=== PATIENT | male | born 1970 | race Caucasian/White ===

== ENCOUNTER 2020-08-01 09:50 | Inpatient (IN) | payer BC, SELFPAY ==
[2020-08-01] VITALS (18 sets, daily range): BP systolic 148–190; BP diastolic 89–108; PULSE 86–116; RESP 16–23; TEMP 36.7–38.4; O2SAT 86–99; BMI 37.8
--- NOTE | ~2020-08-01 | XR_ITS ---
EXAMINATION: XR chest 1V portable DATE: 08/05/2020 05:56 INDICATION: COVID-19 pneumonia. TECHNIQUE: A single frontal view of the chest was obtained. COMPARISON: Chest single view 08/04/2020 FINDINGS: There are patchy airspace opacities throughout the lungs bilaterally. No pleural effusion o r pneumothorax. The heart size is normal. IMPRESSION: 1. Stable diffuse lung disease, consistent with pneumonia or less likely pulmonary edema. Reviewed, dictated and finalized at location A. ING MACHINE OPERATOR IMPRESSION: 1. Stable diffuse lung disease, consistent with pneumonia or less likely pulmon juan edema.
--- NOTE | ~2020-08-01 | XR_ITS ---
XR chest 1V portable DATE: 08/14/2020 06:48 INDICATION: Pneumothorax TECHNIQUE: Portable AP chest on 08/14/2020 at 0543 hours COMPARISON: 08/13/2020 portable AP chest at 1649 hours FINDINGS: ET tube 5.5 cm above nancy. NG tube in stomach. Right internal jugular central venous catheter tip at right brachiocephalic vein. Right thoracostomy tube. No right pneumothorax is evident. There is very prominent elevation the right leaf of the diaphragm, increased since 08/13/2020. Severe diffuse bilateral patchy consolidating infiltrates are noted throughout both lungs, increased in sev erity since 08/13/2020. Left thoracostomy tube is present. No pneumothorax is evident. There is very prominent interval eleva tion of the left leaf of the diaphragm. Severe diffuse bilateral pulmonary patchy consolidating infiltrates are noted. These are increased in severity since 08/13/2020. Minimal if any pleural effusion. IMPRESSION: Severe patchy consolidating infiltrate throughout both lungs, increased since 08/13/2020 Right thoracostomy tube remains; no evidence of pneumothorax Prominent increased elevation of right leaf of diaphragm Reviewed, dictated and finalized at location A. TION MEDICINE SPECIALIST IMPRESSION: Severe patchy consolidating infiltrate throughout both lungs, incre ased since 08/13/2020 Right thoracostomy tube remains; no evidence of pneumothorax Prominent increased elevation of right leaf of diaphragm
--- NOTE | ~2020-08-01 | XR_ITS ---
XR abdomen NG/feed tube insert DATE: 08/06/2020 16:08 INDICATION: Orogastric tube placement TECHNIQUE: Portable AP view on 08/06/2020 at 1604 hours COMPARISON: None FINDINGS: A nasogastric tube is present, the distal tip overlying the body of the stomach. Extensive bilateral patchy pulmonary infiltrates. Gaseous distention of some small and large bowel segments are noted. IMPRESSION: NG tube in body of stomach Reviewed, dictated and finalized at Location A. Reviewed, dictated and finalized at location B. NE SAFETY OFFICER IMPRESSION: NG tube in body of stomach
--- NOTE | ~2020-08-01 | XR_ITS ---
EXAMINATION: XR chest 1V portable DATE: 08/08/2020 06:14 INDICATION: COVID-19 pneumonia. Respiratory failure. TECHNIQUE: A single frontal view of the chest was obtained. COMPARISON: Chest single view 08/07/2020 FINDINGS: There are airspace opacities throughout the lungs bilaterally. No pleural effusion or pneum othorax. The heart size is normal. The endotracheal tube tip is 3.2 cm above the nancy. A right inte rnal jugular central venous catheter is seen with tip in the superior vena cava. The nasogastric tube tip is beyond the inferior margin of the radiograph, but at least to the stomach. IMPRESSION: 1. Stable diffuse lung disease, consistent with pneumonia versus acute respiratory distress syndrome (ARDS). Reviewed, dictated and finalized at location A. COURIER IMPRESSION: 1. Stable diffuse lung disease, consistent with pneumonia versus acute respirat ory distress syndrome (ARDS).
--- NOTE | ~2020-08-01 | XR_ITS ---
XR chest-chest tube insert/pos 08/12/2020 08:08 Indication: Chest tube placement Procedure: AP portable chest Comparison: Comparison to multiple prior studies sequentially, with oldest reviewed study dated 07/21. Findings: Interval placement of right sided chest tube. Decreased right pneumothorax compared with pr ior examination. There is subcutaneous gas in the right chest wall. Persistent diffuse bilateral airs pace disease. Right IJ central line tip in the SVC. Endotracheal tube tip 5.2 cm above the nancy. NG tube in the stomach. Impression: 1: Improved right pneumothorax post chest tube placement. 2: Persistent diffuse bilateral airspace disease which may represent pneumonia or edema. Reviewed, dictated and finalized at location A. PATIONAL THERAPIST'S ASSISTANT Impression: 1: Improved right pneumothorax post chest tube placement. 2: Persistent diffuse bilateral airspace disease which may represent pneumonia or edema.
--- NOTE | ~2020-08-01 | XR_ITS ---
XR chest 1V portable 08/12/2020 06:03 Indication: Respiratory failure Procedure: AP portable chest Comparison: Comparison to multiple prior studies sequentially, with oldest reviewed study dated 07/21. Findings: Right IJ central line tip in the SVC. Interval development of small right apical pneumothor ax. Endotracheal tube tip 4.2 cm above the nancy. NG tube in the stomach. Persistent diffuse bilater al airspace disease without significant change. No significant effusion. Impression: 1: New small right apical pneumothorax. 2: Stable diffuse bilateral airspace disease which may represent pneumonia, edema or ARDS. Dr. Ruiz discussed with the patient's nurse, Piotr Patton, at 08/12/2020 06:37 LEARNING PROGRAM MANAGER. Reviewed, dictated and finalized at location A. NING PROGRAM MANAGER Impression: 1: New small right apical pneumothorax. 2: Stable diffuse bilateral airspace disease which may represent pneumonia, ulysses ma or ARDS. Dr. Ruiz discussed with the patient's nurse, Piotr Patton, at 08/12/2020 06:3 7 LEARNING PROGRAM MANAGER.
--- NOTE | ~2020-08-01 | XR_ITS ---
EXAMINATION: XR chest 1V portable DATE: 08/07/2020 06:08 INDICATION: Respiratory failure. COVID-19 pneumonia. TECHNIQUE: A single frontal view of the chest was obtained. COMPARISON: Chest single view 08/06/2020 FINDINGS: There are patchy airspace opacities throughout the lungs bilaterally. No pleural effusion o r pneumothorax. The heart size is normal. The endotracheal tube tip is 3.5 cm above the nancy. The n asogastric tube tip is beyond the inferior margin of the radiograph, but at least to the stomach. A r ight internal jugular central venous catheter is seen with tip in the superior vena cava. IMPRESSION: 1. Stable diffuse lung disease, consistent with pneumonia versus acute respiratory distress syndrome (ARDS). Reviewed, dictated and finalized at location A. BOSS IMPRESSION: 1. Stable diffuse lung disease, consistent with pneumonia versus acute respirat ory distress syndrome (ARDS).
--- NOTE | ~2020-08-01 | XR_ITS ---
EXAMINATION: XR abdomen/kub 1V DATE: 08/14/2020 10:37 INDICATION: Abnormal chest radiograph. TECHNIQUE: A supine view of the abdomen on 2 radiographs was obtained. COMPARISON: Chest radiograph at 9:59 AM, 5:39 AM FINDINGS: There are no dilated loops of bowel. There is a paucity of bowel gas. The nasogastric tube tip is in the stomach. A right basilar pneumothorax is noted. A right-sided chest tube is unchanged. IMPRESSION: 1. Right basilar pneumothorax, worsened from 5:39 AM. Unchanged right-sided chest tube. Reviewed, dictated and finalized at location A. DULE PLANNING MANAGER IMPRESSION: 1. Right basilar pneumothorax, worsened from 5:39 AM. Unchanged right-sided omid st tube.
--- NOTE | ~2020-08-01 | XR_ITS ---
EXAMINATION: XR chest 1V portable INDICATION: COVID pneumonia, shortness of breath TECHNIQUE: Portable AP chest at 0729 hours COMPARISON: 08/01/2020 FINDINGS: There is stable cardiomegaly. Diffuse interstitial and airspace opacities persist with slig ht improvement in the right lung. There is no pleural effusion or pneumothorax. The visualized osseou s structures are unremarkable. IMPRESSION: 1. Diffuse lung disease with slight interval improvement on the right, consistent with pneumonia and/ or pulmonary edema and/or acute respiratory distress syndrome (ARDS). 2. Cardiomegaly. Reviewed, dictated and finalized at location A. MENT ERECTOR IMPRESSION: 1. Diffuse lung disease with slight interval improvement on the right, consiste nt with pneumonia and/or pulmonary edema and/or acute respiratory distress synd danni (ARDS). 2. Cardiomegaly.
--- NOTE | ~2020-08-01 | XR_ITS ---
EXAMINATION: XR chest-chest tube insert/pos DATE: 08/14/2020 11:53 INDICATION: Right pneumothorax status post chest tube placement. TECHNIQUE: A single frontal view of the chest was obtained on 2 radiographs. COMPARISON: Chest single view at 9:38 AM FINDINGS: There is a small right pneumothorax with interval improvement. There are now 2 right-sided chest tubes. There are airspace and interstitial opacities throughout the lungs bilaterally. No pleur al effusion. The heart size is normal. The endotracheal tube tip is 4.3 cm above the nancy. A right internal jugular central venous catheter is seen with tip in the superior vena cava. The nasogastric tube tip is in the stomach. IMPRESSION: 1. Small right pneumothorax with improvement after second chest tube placement. 2. Severe diffuse lung disease, consistent with pneumonia versus acute respiratory distress syndrome (ARDS). Reviewed, dictated and finalized at location A. E CLERK IMPRESSION: 1. Small right pneumothorax with improvement after second chest tube placement. 2. Severe diffuse lung disease, consistent with pneumonia versus acute respirat ory distress syndrome (ARDS).
--- NOTE | ~2020-08-01 | XR_ITS ---
EXAMINATION: XR chest 1V portable EXAM DATE: 08/01/2020 10:20 INDICATION: SOB with Covid + confirmed . TECHNIQUE: Portable AP frontal chest x-ray was obtained. Comparison is made to prior examination from 09/19/2013. FINDINGS: Moderate amount of ill-defined patchy peripheral predominant acute airspace disease, appear ance and distribution consistent with acute lung injury from SARS-CoV-2. Other etiologies not excluda ble. Mild cardiomegaly. No pneumothorax or pleural effusion. There are no osseous abnormalities identified . IMPRESSION: Moderate amount of patchy acute ill-defined airspace disease. Clinical correlation. Reviewed, dictated and finalized at location B. IMPRESSION: Moderate amount of patchy acute ill-defined airspace disease. Clin ical correlation.
--- NOTE | ~2020-08-01 | XR_ITS ---
EXAMINATION: XR chest ET placement DATE: 08/13/2020 16:53 INDICATION: Change in respiratory status. Endotracheal tube placement. TECHNIQUE: frontal view of the chest was obtained. COMPARISON: Chest radiograph dated 08/13/2020 FINDINGS: Endotracheal tube tip 4.6 cm above the nancy. Nasogastric tube extends below the left hemidiaphragm with distal tip collimated off the study. Right internal jugular central venous catheter with distal tip in the cephalad superior vena cava. No significant change in a right-sided chest tube. The proxi mal side port is now slightly extrapleural projecting over the intercostal space. Diffuse bilateral airspace opacities with dense consolidation in the right mid to lower lung zone. Bl unting at the right costophrenic angle suggesting a small right pleural effusion. No pneumothorax. He art size is normal. IMPRESSION: 1. Endotracheal tube tip 4.6 similar above the nancy.. 2. Right chest tube has backed out slightly with proximal side-port now likely extrapleural at the le magdalena of the intercostal space. 3. Diffuse bilateral lung disease most prominent in the right mid to lower lung zone which could repr esent pneumonia, pulmonary edema or combination thereof. 4. Small right pleural effusion. Reviewed, dictated and finalized at location H. CAL INFORMATION SPECIALIST IMPRESSION: 1. Endotracheal tube tip 4.6 similar above the nancy.. 2. Right chest tube has backed out slightly with proximal side-port now likely extrapleural at the level of the intercostal space. 3. Diffuse bilateral lung disease most prominent in the right mid to lower lung zone which could represent pneumonia, pulmonary edema or combination thereof. 4. Small right pleural effusion.
--- NOTE | ~2020-08-01 | XR_ITS ---
EXAMINATION: XR abdomen NG/feed tube insert DATE: 08/09/2020 20:50 INDICATION: Nasogastric tube placement TECHNIQUE: A supine view of the abdomen and lower chest was obtained for evaluation of feeding tube placement. COMPARISON: 08/06/2020 FINDINGS: Nasogastric tube tip in the body of the stomach. Small amount of gas at the splenic flexure of the co jing. No dilated loops of gas-filled bowel in the visualized upper abdomen. The lower abdomen and pelv is is excluded from the [id number]. Extensive bilateral coarse airspace opacities. Distal tip of a central venous catheter is seen at the cephalad superior vena cava. Heart size is normal. IMPRESSION: 1. Nasogastric tube in stomach. 2. Diffuse bilateral lung disease consistent with pneumonia versus ARDS. Reviewed, dictated and finalized at [facility]. CIATE PRODUCER
--- NOTE | ~2020-08-01 | XR_ITS ---
EXAMINATION: XR chest ET placement EXAM DATE: 08/06/2020 16:07 INDICATION: intubation . COVID positive. TECHNIQUE: Portable AP frontal chest x-ray was obtained. Comparison is made to prior examination from 08/05/2020. FINDINGS: Endotracheal tube tip is 1 centimeters above the nancy (ideal range is between 2 to 5 cm), could be safely retracted 1-2 cm. There is a nasogastric tube seen with tip collimated off the stud y, but below the left hemidiaphragm. Diffuse bilateral ill-defined acute airspace disease, consistent with edema or infection. Probably CO VID-19 pneumonia given history provided. There are no sizable pleural effusions. There is no pneum othorax suspected. Mild cardiomegaly. The bones and soft tissues are unremarkable. There is no significant interval change compared to prior exam. IMPRESSION: 1. ET tube tip above nancy, could be safely retracted 1-2 cm 2. Extensive acute airspace disease. Reviewed, dictated and finalized at location A. ERCIAL TECHNICIAN
--- NOTE | ~2020-08-01 | XR_ITS ---
EXAMINATION: XR chest 1V portable EXAM DATE: 08/11/2020 06:15 INDICATION: Respiratory failure. COVID 19. TECHNIQUE: Portable AP frontal chest x-ray was obtained. Comparison is made to prior examination from 08/10, 08/09, 08/08. FINDINGS: Endotracheal tube tip is 4 centimeters above the nancy (ideal range is between 2 to 5 cm). There is a nasogastric tube seen with tip collimated off the study, but below the left hemidiaphrag m. There is a right IJ venous line. Extensive bilateral ill-defined acute airspace disease with regions of confluence. Appearance is cons istent with COVID-19 pneumonia. There are no sizable pleural effusions. There is no pneumothorax s uspected. The cardiomediastinal silhouette is prominent but magnified on this AP technique. The b ones and soft tissues are unremarkable. There is no significant interval change compared to prior exam. IMPRESSION: 1. Line(s) and tube(s) in position. 2. Stable airspace disease and other findings as above. Reviewed, dictated and finalized at location B. S RECREATION DIRECTOR
--- NOTE | ~2020-08-01 | XR_ITS ---
EXAMINATION: XR chest 1V portable EXAM DATE: 08/09/2020 05:57 INDICATION: Respiratory failure. COVID 19. TECHNIQUE: Portable AP frontal chest x-ray was obtained. Comparison is made to prior examination from 08/08. FINDINGS: Endotracheal tube tip is 4 centimeters above the nancy (ideal range is between 2 to 5 cm). There is a nasogastric tube seen with tip collimated off the study, but below the left hemidiaphrag m. There is a right IJ venous line. Extensive bilateral ill-defined acute airspace disease with small regions of confluence. Appearance i s consistent with COVID-19 pneumonia. There are no sizable pleural effusions. There is no pneumoth orax suspected. The cardiomediastinal silhouette is prominent but magnified on this AP technique. The bones and soft tissues are unremarkable. There is no significant interval change compared to prior exam. IMPRESSION: 1. Line(s) and tube(s) in position. 2. Stable airspace disease and other findings as above. Reviewed, dictated and finalized at location A. ING SIGNAL OFFICER
--- NOTE | ~2020-08-01 | XR_ITS ---
EXAMINATION: XR chest 1V portable INDICATION: Shortness of breath, COVID TECHNIQUE: Portable AP chest at 0741 hours COMPARISON: 08/02/2020 FINDINGS: Diffuse interstitial and airspace opacities persist with interval worsening, particularly o n the right. There is stable cardiomegaly. No pleural effusion or pneumothorax is identified. IMPRESSION: 1. Diffuse lung disease with interval worsening, consistent with pneumonia and/or pulmonary edema and /or acute respiratory distress syndrome (ARDS). Reviewed, dictated and finalized at location A. ESTHETICIAN IMPRESSION: 1. Diffuse lung disease with interval worsening, consistent with pneumonia and/ or pulmonary edema and/or acute respiratory distress syndrome (ARDS).
--- NOTE | ~2020-08-01 | XR_ITS ---
EXAMINATION: XR chest 1V portable DATE: 08/04/2020 07:38 INDICATION: COVID-19 pneumonia. TECHNIQUE: A single frontal view of the chest was obtained. COMPARISON: Chest single view 08/03/2020 FINDINGS: There are airspace and interstitial opacities in all lung zones bilaterally. No pleural eff usion or pneumothorax. The heart size is normal. IMPRESSION: 1. Stable diffuse lung disease, consistent with pneumonia or less likely pulmonary edema. Reviewed, dictated and finalized at location A. RVISOR FINISHING IMPRESSION: 1. Stable diffuse lung disease, consistent with pneumonia or less likely pulmon juan edema.
--- NOTE | ~2020-08-01 | XR_ITS ---
XR chest 1V portable 08/13/2020 00:42 Indication: Pneumothorax. Decreased oxygen saturations. Procedure: AP portable chest Comparison: Comparison to multiple prior studies sequentially, with oldest reviewed study dated 07/21. Findings: Right IJ central line tip in the SVC. Endotracheal tube tip 3.4 cm above the nancy. NG tub e in the stomach. No pneumothorax identified. Right sided chest tube position unchanged. Diffuse bila teral airspace disease unchanged, consistent with pneumonia. Possible small effusions. Impression: 1: Diffuse bilateral airspace disease unchanged, consistent with pneumonia versus edema. Reviewed, dictated and finalized at location A. TED CIRCUIT BOARDS PINNER Impression: 1: Diffuse bilateral airspace disease unchanged, consistent with pneumonia vers us edema.
--- NOTE | ~2020-08-01 | XR_ITS ---
EXAMINATION: XR chest port-a-cath/central DATE: 08/06/2020 19:49 INDICATION: Central line insertion TECHNIQUE: frontal view of the chest was obtained. COMPARISON: Chest radiograph dated 08/06/2020 at 4:03 PM FINDINGS: Endotracheal tube tip 3.0 cm above the nancy. Nasogastric tube extends below the left hemidiaphragm with distal tip collimated off the study. Right internal jugular central venous port catheter with d istal tip in the midsuperior vena cava. Diffuse bilateral patchy airspace opacities. No pleural effusion or pneumothorax. Mild cardiomegaly. IMPRESSION: 1. Lines and tubes in expected position. 2. Extensive bilateral lung disease consistent with pneumonia. Reviewed, dictated and finalized at location H. MILL MANAGER
--- NOTE | ~2020-08-01 | XR_ITS ---
EXAMINATION: XR chest ET placement EXAM DATE: 08/10/2020 02:20 INDICATION: Endotracheal tube replaced. Respiratory failure. COVID 19. TECHNIQUE: Portable AP frontal chest x-ray was obtained. Comparison is made to prior examination from 08/09, 08/08. FINDINGS: Endotracheal tube tip is 4 centimeters above the nancy (ideal range is between 2 to 5 cm). There is a nasogastric tube seen with tip collimated off the study, but below the left hemidiaphrag m. There is a right IJ venous line. Extensive bilateral ill-defined acute airspace disease with regions of confluence. Appearance is cons istent with COVID-19 pneumonia. There are no sizable pleural effusions. There is no pneumothorax s uspected. The cardiomediastinal silhouette is prominent but magnified on this AP technique. The b ones and soft tissues are unremarkable. There is no significant interval change compared to prior exam. IMPRESSION: 1. Line(s) and tube(s) in position. 2. Stable airspace disease and other findings as above. Reviewed, dictated and finalized at location A. N RESOURCES CONSULTANT
--- NOTE | ~2020-08-01 | XR_ITS ---
EXAMINATION: XR chest 1V portable DATE: 08/14/2020 10:35 INDICATION: Chest tube placement. TECHNIQUE: A single frontal view of the chest was obtained on 2 radiographs. COMPARISON: Chest single view at 5:39 AM FINDINGS: There is a worsened pneumothorax at right lung base. There are airspace and interstitial op acities throughout the lungs bilaterally. No pleural effusion. The heart size is normal. A right-side d chest tube is noted. The endotracheal tube tip is 5.0 cm above the nancy. The nasogastric tube tip is in the stomach. A right internal jugular central venous catheter is seen with tip in the superior vena cava. IMPRESSION: 1. Worsened pneumothorax at right lung base. Unchanged right-sided chest tube. 2. Stable severe diffuse lung disease, consistent with pneumonia versus acute respiratory distress sy ndrome (ARDS). Reviewed, dictated and finalized at location A. RWEAR WELTER IMPRESSION: 1. Worsened pneumothorax at right lung base. Unchanged right-sided chest tube. 2. Stable severe diffuse lung disease, consistent with pneumonia versus acute r espiratory distress syndrome (ARDS).
--- NOTE | 2020-08-01 09:59 | ED.SOB ---
HPI - SOB/Dyspnea General Chief Complaint: Shortness of Breath/Dyspnea Stated Complaint: covid +, SOB Time Seen by Provider: 08/01/20 09:59 Source: patient Mode of arrival: ambulatory Limitations: no limitations History of Present Illness HPI Narrative: Patient is a 50-year-old male with a history of hypertension, hyperlipidemia who presents for evaluation of fever, cough and shortness of breath. Patient with a positive Covid test result 2 days ago, has had fever, myalgias, loss of sense of taste and smell, as well as shortness of breath that developed today. When asked about timeline of symptoms, states it could have been over 2 weeks since his symptoms really began. He had a Covid test about a week ago that was initially negative. Patient denying any chest pain. No rashes. He denies nausea or vomiting. He reports some mild diarrhea. Related Data Home Medications Medication Instructions Recorded Confirmed lamotrigine 08/01/20 venlafaxine mg PO 08/01/20 Allergies Allergy/AdvReac Type Severity Reaction Status Date / Time No Known Allergies Allergy Verified 08/01/20 10:00 Review of Systems Review of Systems: Narrative: CONSTITUTIONAL: Reports fever and chills EYES: Denies visual changes, redness, or discharge. ENT: Reports rhinorrhea and congestion CARDIOVASCULAR: Denies chest pain, palpitations, or edema. RESPIRATORY: Reports cough and shortness of breath GASTROINTESTINAL: Denies abdominal pain, nausea, vomiting, reports mild diarrhea GENITOURINARY: Denies dysuria or hematuria. SKIN: Denies rash or itching. MUSCULOSKELETAL: Denies back pain, joint pain, or myalgia. NEUROLOGIC: Denies headache, numbness, reports feeling diffusely weak PSYCHIATRIC: History of bipolar disorder and depression [facility] Past Medical History Medical History (Updated 08/01/20 @ 12:15 by Georgia Connell MD) Bipolar disorder Depression Hypertension Family History Family History (Updated 02/01/14 @ 11:21 by DOCTOR UNKNOWN) Other Family history of alcoholism Family history of mental disorder Social History Social History Smoking status: Never smoker Gender identity (if verbalized by the patient): Male Exam Narrative: Exam Narrative: GENERAL: Awake, alert, conversant HEAD: Normocephalic, atraumatic. EYES: PERRLA and EOMI. ENT: Nares clear, no rhinorrhea or epistaxis. Mucous membranes moist. NECK: Supple. CHEST: No respiratory distress, breathing even and non labored, no wheezing HEART: Tachycardic rate, sinus rhythm ABDOMEN:Non distended, non tender EXTREMITIES: Normal range of motion. No edema. SKIN: Warm, dry, no rash. NEURO:No focal deficits. Alert and oriented x3 Course Vital Signs Vital signs: Vital Signs Temperature 38.4 C H 08/01/20 09:54 Pulse Rate 115 H 08/01/20 09:54 Respiratory Rate 19 08/01/20 09:54 Blood Pressure 190/107 H 08/01/20 09:54 Pulse Oximetry 86 L 08/01/20 09:54 Temperature 38.4 C H 08/01/20 09:54 Pulse Rate 113 H 08/01/20 11:01 Respiratory Rate 20 08/01/20 11:01 Blood Pressure 185/102 H 08/01/20 11:01 Pulse Oximetry 96 08/01/20 11:01 MDM - SOB/Dyspnea MDM Narrative Medical decision making narrative: Patient presented for evaluation of fever, cough, shortness of breath. Denying any chest pain. Has had positive Covid test already. Patient presenting hypoxic on room air. No severe increased work of breathing. He is tachycardic and febrile. Patient does meet sepsis criteria. He was placed on 4 L nasal cannula with improvement in oxygen saturations to 95%. Patient was given a 1 L fluid boluses we are trying to be judicious with IV fluids and Covid positive patients. Patient had no hypotension. He has a mild lactic acidosis consistent with viral sepsis. At this point, his source of infection is Covid, antibiotics at this point are not indicated per guidelines. The patient was started on IV chelsi
--- NOTE | 2020-08-01 10:01 | ECG_ITS ---
Measurements Intervals [place] Rate: 109 P: 5 OR: 138 QRS: -38 QRSD: 99 T: 54 QT: 332 QTc: 449 Interpretive Statements SINUS TACHYCARDIA FREQUENT VENTRICULAR PREMATURE COMPLEXES LEFT AXIS DEVIATION DELAYED PRECORDIAL R/S TRANSITION BORDERLINE ST-T WAVE ABNORMALITY- INF/HIGH LAT LEADS ABNORMAL ECG Electronically Signed On 08-01-2020 10:08:42 CUSTOMER ACCOUNT TECHNICIAN by Jeffery Espinosa D.O.
[2020-08-01 10:12] LABS: Basophils Percent Auto 0.3 % (0.2-1.2); Hematocrit 45.9 % (42.0-52.0); Hemoglobin 15.2 g/dL (14.0-18.0); Immature Granulocyte Absolute 0.05 K/mm3 (0.00-0.031); Immature Granulocyte Percent A 0.7 % (0-0.5); Lymphocytes Absolute Auto 0.85 K/mm3 (0.9-3.2); Lymphocytes Percent Auto 12.7 % (18.3-44.2); Mean Corpuscular HGB Conc 33.1 g/dl (32-36); Mean Corpuscular Hemoglobin 29.8 pg (26-34); Mean Platelet Volume 9.6 fl (7.4-10.4); Monocytes Absolute Auto 0.2 K/mm3 (0.1-0.6); Monocytes Percent Auto 3.6 % (2.6-8.5); Neutrophils Absolute Auto 5.5 K/mm3 (1.3-6.7); Neutrophils Percent Auto 82.7 % (45.5-73.1); Platelet Count Result 268 k/mm3 (150-375); Red Cell Distribution Width 12.3 % (11.5-14.5); White Blood Count 6.7 K/mm3 (4.5-10.0)
[2020-08-01 10:25] LABS: Anion Gap 9 mmol/L (8-16); Blood Urea Nitrogen 14 mg/dL (9-20); Calcium 8.9 mg/dL (8.4-10.2); Carbon Dioxide 31 mmol/L (22-30); Chloride 95 mmol/L (98-107); Estimated Glomerular Filt Rate > 60; Glucose 296 mg/dL (75-110); Potassium 3.7 mmol/L (3.4-5.0); Sodium 135 mmol/L (137-145)
[2020-08-01 10:55] LABS: Lactic Acid Reflex 3.2 mmol/L (0.7-2.1)
[2020-08-01] MEDS: SODIUM CHLORIDE 0.9% IV 1,000 ML 999 ML IV CONT (10:55)
[2020-08-01] MEDS: ACETAMINOPHEN 500 MG TABLET 1000 MG PO (10:56)
[2020-08-01] MEDS: ONDANSETRON INJ 4 MG/2 ML VIAL IV PUSH (10:56)
[2020-08-01 11:00] LABS: Alanine Aminotransferase 56 U/L (4-50); Albumin Level 3.8 g/dL (3.5-5.1); Alkaline Phosphatase 119 U/L (38-126); Anion Gap 9 mmol/L (8-16); Aspartate Amino Transferase 60 U/L (17-59); Bilirubin,Total 0.6 mg/dL (0.2-1.3); Blood Urea Nitrogen 15 mg/dL (9-20); Calcium 8.7 mg/dL (8.4-10.2); Carbon Dioxide 32 mmol/L (22-30); Chloride 94 mmol/L (98-107); Estimated Glomerular Filt Rate > 60; Glucose 278 mg/dL (75-110); Potassium 3.7 mmol/L (3.4-5.0); Sodium 135 mmol/L (137-145)
[2020-08-01 11:12] LABS: CRP 13.1 mg/dL (<1.0)
[2020-08-01 11:16] LABS: Add Urine Microscopic? YES; Appearance Urine Clear (Clear); Bacteria Urine Trace /hpf; Bilirubin Urine Negative (Negative); Blood Urine Negative (Negative); Color Urine Yellow (Yellow); Glucose Urine UA 3+ mg/dL (Negative); Ketones Urine 1+ mg/dL (Negative); Leukocyte Esterase Ur Negative LEU/UL (Negative); Mucus Urine Rare /lpf; Nitrate Urine Negative (Negative); Protein Urine 2+ mg/dL (Negative); RBC Urine 0-2 /hpf (0-2); Specific Grav Ur 1.036 (1.001-1.035); Urobilinogen Urine Negative mg/dL (<2.0)
--- NOTE | 2020-08-01 12:47 | PC.NURSE ---
Report attempted x 2 by this RN. Floor RN unable to take report. ED charge nurse notified of delay in admission
[2020-08-01 12:56] LABS: Alanine Aminotransferase 57 U/L (4-50); Estimated Glomerular Filt Rate > 60
--- NOTE | 2020-08-01 13:10 | ADMGEN ---
This patient, Migel Estrada, was admitted to [facility] Surg Room 328-01. Patient/family oriented to hospital policies and general routines including ID bracelet, bed and alarms, visiting hours, pain management, procedures, bathroom and other care routines, personal items, smoking policy, room service/diet, and visiting hours. Information on how to activate the Rapid Response Team has been discussed. Patient/Family are encouraged to report perceived risks to care and to ask questions if they do not understand what they are told or what they should do.
[2020-08-01 13:41] LABS: Reflex Lactic Acid Yes or No Add Lactic
--- NOTE | 2020-08-01 14:02 | PM.IMHP ---
H&P: HPI History of Present Illness Date/Time: 08/01/20 14:02 Chief complaint: COVID 19, Hypoxia, Sepsis Narrative: Migel Estrada is a 50 year old male with bipolar disorder and pre diabetes who is here for fever, SOB and cough. Patient states his symptoms started on 08 08 with fever, cough and shortness of breath. He also had headache, loss of taste and smell and fatigue. He went to an urgent care center on that day and had a rapid COVID test which was positive. he was sent home with a nebulizer treatment with albuterol which she has been using about 6 times a day. He has also been taking Tylenol with headache. He has noted decreased appetite and headache. No nausea or vomiting but has been having loose stools. His in center COVID positive. He denies any chest pain but does have some tightness when he tries to take deep breaths. Patient symptoms have worsened over the past few days prompting this presentation to the emergency room. In the emergency room patient was tachycardic, hypoxic and febrile. He had elevated blood pressure. He states he did not know that he and hypertension. He is not sure they as hyperlipidemia either. Initially told the ER provider that he did not have diabetes but glucose here was 278 and admits to me that he was diagnosed with prediabetes and was on metformin. He has been off metformin for year since losing contact with that primary care doctor. chest x-ray reviewed showing moderate amount of patchy acute airspace disease. Lactic acid was 3.2 and CRP was 13. LFTs are mildly elevated. He was started on room does severe dexamethasone. Was admitted for further care. Review of Systems Review of Systems: All systems reviewed & are unremarkable except as noted in HPI and below PMFSH Past Medical History Medical History (Updated 08/01/20 @ 16:05 by Deon Rodriguez MD) Bipolar disorder Depression Hypertension patient denies Pre-diabetes Surgical History Surgical History (Updated 08/01/20 @ 16:05 by Deon Rodriguez MD) History of appendectomy Family History Family History (Updated 02/01/14 @ 11:21 by DOCTOR UNKNOWN) Other Family history of alcoholism Family history of mental disorder Social History Social History (Updated 08/01/20 @ 16:06 by Deon Rodriguez MD) Social History: He lives at home with his and 3 children. He denies tobacco alcohol drug use. He works in [employer]. He is a full code. Nominates his to be the individual would make medical decisions for if he is not able. Smoking status: Never smoker Second hand tobacco smoke exposure: No Alcohol intake: never Substance use: never Substance use type: does not use Gender identity (if verbalized by the patient): Male Sexual Orientation (if Verbalized by the Patient): Straight or Heterosexual Spiritual care concerns: No Meds Home Medications and Allergies Home Medications Medication Instructions Recorded Confirmed Type lamotrigine 200 mg PO HS 08/01/20 08/01/20 History venlafaxine 150 mg PO DAILY 08/01/20 08/02/20 History Allergies Allergy/AdvReac Type Severity Reaction Status Date / Time No Known Allergies Allergy Verified 08/01/20 14:48 Vital Signs Vital Signs - 24 hr 08/01/20 09:54 08/01/20 09:56 08/01/20 10:00 Temperature 101.1 F H Pulse Rate 115 H 106 H Respiratory Rate 19 23 H Blood Pressure 190/107 H 190/107 H Pulse Oximetry 86 L 86 L 93 08/01/20 10:01 08/01/20 10:02 08/01/20 10:04 Temperature Pulse Rate 112 H 106 H Respiratory Rate 16 Blood Pressure 175/101 H Pulse Oximetry 93 94 08/01/20 10:17 08/01/20 10:46 08/01/20 11:00 Temperature Pulse Rate 114 H 114 H 112 H Respiratory Rate 21 H 22 H 21 H Blood Pressure 154/97 H 176/108 H Pulse Oximetry 98 95 08/01/20 11:01 08/01/20 11:16 08/01/20 11:31 Temperature Pulse Rate 113 H 114 H 116 H Respiratory Rate 20 22 H 23 H Blood Pressure 185/102 H 184/100 H 17
[2020-08-01 14:36] LABS: Lactic Acid 0.8 mmol/L (0.7-2.1)
--- NOTE | 2020-08-01 14:54 | PC.NURSE ---
Patient says he had taken Metformin in the past but doesnt remember when he took it last. He also said he had taken medication for his BP. 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
[2020-08-01] MEDS: REMDESIVIR 200 MG/NS 250 ML 200 MG/250 ML BAG 250 MG IVPB (16:30)
[2020-08-01] MEDS: INSULIN ASPART (*BKC) 100 UNITS/ML SUB-Q (16:42)
[2020-08-01 17:10] LABS: Glucose Point of Care 286 (65-105)
[2020-08-01] MEDS: ENOXAPARIN 40 MG/0.4 ML SYRINGE SUB-Q (20:39)
[2020-08-01] MEDS: lamoTRIgine 100 MG TABLET 200 MG PO (20:39)
[2020-08-01 20:54] LABS: Glucose Point of Care 266 (65-105)
[2020-08-01] MEDS: ALBUTEROL SULFATE (*SP) INHALER 2 PUFF INHALATION (21:55)
[2020-08-02] VITALS (10 sets, daily range): BP systolic 129–144; BP diastolic 66–93; PULSE 64–94; RESP 18–20; TEMP 36.1–37.6; O2SAT 92–94
[2020-08-02] MEDS: ACETAMINOPHEN 325 MG TABLET 650 MG PO (00:37)
[2020-08-02 06:24] LABS: Basophils Percent Auto 0.3 % (0.2-1.2); Hematocrit 44.5 % (42.0-52.0); Hemoglobin 14.6 g/dL (14.0-18.0); Immature Granulocyte Absolute 0.09 K/mm3 (0.00-0.031); Immature Granulocyte Percent A 1.1 % (0-0.5); Lymphocytes Absolute Auto 0.87 K/mm3 (0.9-3.2); Lymphocytes Percent Auto 11.1 % (18.3-44.2); Mean Corpuscular HGB Conc 32.8 g/dl (32-36); Mean Corpuscular Volume 88.3 fl (80-100); Mean Platelet Volume 9.7 fl (7.4-10.4); Monocytes Absolute Auto 0.4 K/mm3 (0.1-0.6); Monocytes Percent Auto 5.6 % (2.6-8.5); Neutrophils Absolute Auto 6.4 K/mm3 (1.3-6.7); Neutrophils Percent Auto 81.9 % (45.5-73.1); Platelet Count Result 297 k/mm3 (150-375); Red Blood Count 5.04 M/mm3 (4.6-6.20); Red Cell Distribution Width 12.4 % (11.5-14.5); White Blood Count 7.9 K/mm3 (4.5-10.0)
[2020-08-02 06:47] LABS: Lactic Acid Reflex 1.4 mmol/L (0.7-2.1)
[2020-08-02 06:51] LABS: Hemoglobin A1C 8.5 % (<5.7)
[2020-08-02 07:00] LABS: Alanine Aminotransferase 55 U/L (4-50); Albumin Level 3.6 g/dL (3.5-5.1); Alkaline Phosphatase 119 U/L (38-126); Anion Gap 8 mmol/L (8-16); Aspartate Amino Transferase 55 U/L (17-59); Bilirubin,Total 0.5 mg/dL (0.2-1.3); Blood Urea Nitrogen 15 mg/dL (9-20); Calcium 8.7 mg/dL (8.4-10.2); Carbon Dioxide 32 mmol/L (22-30); Chloride 96 mmol/L (98-107); Estimated CRCL calculation 151 ml/min; Estimated Glomerular Filt Rate > 60; Glucose 221 mg/dL (75-110); Lactate Dehydrogenase 690 U/L (313-618); Potassium 3.9 mmol/L (3.4-5.0); Sodium 136 mmol/L (137-145)
[2020-08-02 07:56] LABS: Thyroid Stimulating Hormone Reflex 0.458 uIU/mL (0.465-4.68)
[2020-08-02 08:03] LABS: CRP 11.8 mg/dL (<1.0)
[2020-08-02] MEDS: INSULIN ASPART (*BKC) 100 UNITS/ML SUB-Q ×3 (08:31→18:32)
[2020-08-02] MEDS: DEXAMETHASONE 2 MG TABLET 6 MG PO (08:36)
[2020-08-02 08:37] LABS: Glucose Point of Care 207 (65-105)
[2020-08-02] MEDS: VENLAFAXINE HCL XR 75 MG CAP.ER.24H 150 MG PO (08:38)
[2020-08-02] MEDS: lisinopriL 10 MG TABLET PO (08:38)
[2020-08-02] MEDS: ENOXAPARIN 40 MG/0.4 ML SYRINGE SUB-Q ×2 (09:00→23:04)
[2020-08-02] MEDS: ALBUTEROL SULFATE (*SP) INHALER 2 PUFF INHALATION ×3 (09:08→22:05)
[2020-08-02 12:16] LABS: Glucose Point of Care 313 (65-105)
[2020-08-02 12:32] LABS: Free T4 Free Thyroxine Reflex 1.38 ng/dL (0.78-2.19)
[2020-08-02 14:00] LABS: Total Triiodothyronine (T3) 0.88 NG/ML (0.97-1.69)
[2020-08-02] MEDS: REMDESIVIR 100 MG/NS 250 ML 100 MG/250 ML BAG 250 MG IVPB (14:49)
--- NOTE | 2020-08-02 14:59 | PM.IMPN ---
Progress Note: A&P Assessment and Plan (1) Acute respiratory failure with hypoxia: Code(s): J96.01 - Acute respiratory failure with hypoxia Status: Acute Assessment and Plan: Patient with known COVID diagnosed 07/29. Patient presents with complaints of shortness of breath. Found to be hypoxic requiring supplemental oxygen. Chest x-ray reviewed showing moderate amount of patchy acute airspace disease. Most likely related to COVID. Stabilized on 2L nasal cannula at this time. Wean oxygen as tolerated. Check BNP (2) Sepsis: Code(s): A41.9 - Sepsis, unspecified organism Status: Acute Assessment and Plan: Patient with sepsis symptoms present on admission with lactic acidosis, hypoxia, fever, and tachycardia. White count normal but with left shift. Lactic acid level normal. [place] all related to COVID. Continue to monitor closely. (3) COVID-19: Code(s): U07.1 - COVID-19 Status: Acute Assessment and Plan: Patient presents with fever, cough and shortness of breath. His COVID test was positive on 07/29/2020. He is hypoxic on presentation. He has been started on dexamethasone and Remdesivir Day 2. CXR today showing slight improvement. Ferritin, LDH and CRP all are elevated. Continue albuterol MDI. Continue supportive care. Follow inflammatory markers. (4) Hyperglycemia: Code(s): R73.9 - Hyperglycemia, unspecified Status: Acute Assessment and Plan: Patient's glucose is elevated on admission to 278. Patient has hx of pre-diabetes. A1c 8.5 so now with DM. The patient's blood glucose was reviewed on 08/02 Glucose remains poorly controlled related to the steroids and that he was porly controlled prir to admission. Continue AccuCheks covering with sliding scale. Hypoglycemia protocol available as needed. Add lantus at night. Add metformin as well. (5) Hypertension: Code(s): I10 - Essential (primary) hypertension Status: Inactive Assessment and Plan: Patient has hypertension listed as a medical problem although he denies. He is not on any medications for this. Blood pressure elevated on admission which again could be stress response but suspect he has underlying HTN. We added lisinopril and BP better controlled today. Continue to monitor. (6) Bipolar disorder: Code(s): F31.9 - Bipolar disorder, unspecified Status: Inactive Assessment and Plan: Mood is stable. Continue Lamictal and venlafaxine. (7) DVT prophylaxis: Code(s): Z29.9 - Encounter for prophylactic measures, unspecified Status: Acute Assessment and Plan: Lovenox q.12 Subjective Date/time seen: 08/02/20 14:59 Interval history: Date of service 08/02 50yo male with bipolar, pre-DM and recently diagnosed with COVID here for SOB and found to be hypoxic. No fevers overnight. No CP or palpitations. SOB better. +GARCIA. No n/v. no diarrhea. Decrease in appetite. Exam Narrative: Exam Narrative: AF 97.9 132/66 91 20 92% 2L Gen - NARD sitting up in bed Chest - decreased BS bibasilar with inspiratory crackles mid to lower lung ovalles. CV - RRR S1/S2 Abd - soft, NT/ND, +BS Ext - no pedal edema. Psych - normal mood and affect. Patient is pleasant and cooperative. Skin - warm and dry Objective Data Vital Signs Vital Signs: Vital Signs - 24 hr 08/01/20 16:00 08/01/20 20:00 08/02/20 00:00 Temperature 98.1 F 99.7 F H Pulse Rate 86 90 87 Respiratory Rate 20 20 Blood Pressure 161/93 H 133/70 Pulse Oximetry 91 92 08/02/20 03:52 08/02/20 04:00 08/02/20 08:00 Temperature 98.2 F 98.7 F Pulse Rate 88 69 86 Respiratory Rate 18 20 20 Blood Pressure 144/92 H 142/86 H Pulse Oximetry 92 93 92 08/02/20 09:11 08/02/20 12:00 Temperature 97.9 F Pulse Rate 88 91 Respiratory Rate 20 Blood Pressure 132/66 Pulse Oximetry 92 92 Intake/Output Intake/Output: Intake & Output
[2020-08-02] MEDS: ALBUTEROL SULFATE (*SP) INHALER 1 PUFF (16:56)
[2020-08-02 17:46] LABS: Glucose Point of Care 321 (65-105)
[2020-08-02] MEDS: metFORMIN HCL 250 MG TABLET PO (18:35)
[2020-08-02] MEDS: lamoTRIgine 100 MG TABLET 200 MG PO (23:04)
[2020-08-02] MEDS: INSULIN GLARGINE (*BKC) 100 UNITS/ML 17 UNITS SUB-Q (23:04)
[2020-08-02 23:34] LABS: Glucose Point of Care 249 (65-105)
[2020-08-03] VITALS (7 sets, daily range): BP systolic 114–139; BP diastolic 62–81; PULSE 69–88; RESP 18–20; TEMP 36.1–37.1; O2SAT 90–94
[2020-08-03 07:34] LABS: Basophils Percent Auto 0.2 % (0.2-1.2); Hemoglobin 13.7 g/dL (14.0-18.0); Immature Granulocyte Absolute 0.23 K/mm3 (0.00-0.031); Immature Granulocyte Percent A 2.6 % (0-0.5); Lymphocytes Absolute Auto 0.97 K/mm3 (0.9-3.2); Lymphocytes Percent Auto 10.8 % (18.3-44.2); Mean Corpuscular HGB Conc 33.4 g/dl (32-36); Mean Corpuscular Hemoglobin 29.2 pg (26-34); Mean Corpuscular Volume 87.4 fl (80-100); Mean Platelet Volume 9.8 fl (7.4-10.4); Monocytes Absolute Auto 0.6 K/mm3 (0.1-0.6); Monocytes Percent Auto 6.8 % (2.6-8.5); Neutrophils Absolute Auto 7.2 K/mm3 (1.3-6.7); Neutrophils Percent Auto 79.6 % (45.5-73.1); Platelet Count Result 344 k/mm3 (150-375); Red Blood Count 4.69 M/mm3 (4.6-6.20); Red Cell Distribution Width 12.2 % (11.5-14.5)
[2020-08-03 07:35] LABS: Alanine Aminotransferase 52 U/L (4-50)
[2020-08-03 08:15] LABS: Alanine Aminotransferase 51 U/L (4-50); Albumin Level 3.3 g/dL (3.5-5.1); Alkaline Phosphatase 118 U/L (38-126); Anion Gap 5 mmol/L (8-16); Aspartate Amino Transferase 54 U/L (17-59); Bilirubin,Total 0.5 mg/dL (0.2-1.3); Blood Urea Nitrogen 17 mg/dL (9-20); CRP 6.1 mg/dL (<1.0); Calcium 8.5 mg/dL (8.4-10.2); Carbon Dioxide 33 mmol/L (22-30); Chloride 97 mmol/L (98-107); Estimated CRCL calculation 151 ml/min; Estimated Glomerular Filt Rate > 60; Glucose 156 mg/dL (75-110); Lactate Dehydrogenase 824 U/L (313-618); Potassium 3.8 mmol/L (3.4-5.0); Sodium 135 mmol/L (137-145)
[2020-08-03 08:16] LABS: Glucose Point of Care 156 (65-105)
[2020-08-03 08:19] LABS: NT Pro B Type Natriuretic Pept 254 PG/ML (5-100)
[2020-08-03] MEDS: ENOXAPARIN 40 MG/0.4 ML SYRINGE SUB-Q ×2 (08:48→20:13)
[2020-08-03] MEDS: DEXAMETHASONE 2 MG TABLET 6 MG PO (08:49)
[2020-08-03] MEDS: lisinopriL 10 MG TABLET PO (08:49)
[2020-08-03] MEDS: metFORMIN HCL 250 MG TABLET PO ×2 (08:49→17:56)
[2020-08-03] MEDS: VENLAFAXINE HCL XR 75 MG CAP.ER.24H 150 MG PO (08:49)
[2020-08-03] MEDS: ALBUTEROL SULFATE (*SP) INHALER 2 PUFF INHALATION ×4 (08:50→23:08)
[2020-08-03] MEDS: ACETAMINOPHEN 325 MG TABLET 650 MG PO (08:51)
[2020-08-03 12:18] LABS: Glucose Point of Care 212 (65-105)
[2020-08-03] MEDS: INSULIN ASPART (*BKC) 100 UNITS/ML SUB-Q ×2 (12:59→17:54)
[2020-08-03] MEDS: REMDESIVIR 100 MG/NS 250 ML 100 MG/250 ML BAG 250 MG IVPB (14:46)
--- NOTE | 2020-08-03 15:37 | PM.IMPN ---
Progress Note: A&P Assessment and Plan (1) Acute respiratory failure with hypoxia: Code(s): J96.01 - Acute respiratory failure with hypoxia Status: Acute Assessment and Plan: Patient with known COVID diagnosed 07/29. Patient presents with complaints of shortness of breath. Found to be hypoxic requiring supplemental oxygen. Chest x-ray reviewed showing moderate amount of patchy acute airspace disease. BNP 254. Most likely related to COVID. Wean oxygen as tolerated. (2) Sepsis: Code(s): A41.9 - Sepsis, unspecified organism Status: Acute Assessment and Plan: Patient with sepsis symptoms present on admission with lactic acidosis, hypoxia, fever, and tachycardia. White count remaining normal. Lactic acid level 3.2 but normalized on recheck. [place] all related to COVID. Continue to monitor closely. (3) COVID-19: Code(s): U07.1 - COVID-19 Status: Acute Assessment and Plan: Patient presents with fever, cough and shortness of breath. His COVID test was positive on 07/29/2020. He is hypoxic on presentation. He has been started on dexamethasone and Remdesivir Day 3. CXR today showing diffuse lung disease with interval worsening. Ferritin 1180 and CRP 6.1 whcih are better but LDH higher at 824. Day 6 since onset of symptoms. Monitor closely for decompensation. Continue albuterol MDI. Continue supportive care. Follow inflammatory markers. (4) Hyperglycemia: Code(s): R73.9 - Hyperglycemia, unspecified Status: Acute Assessment and Plan: Patient's glucose is elevated on admission to [facility]. Patient has hx of pre-diabetes. A1c 8.5 so now with DM. The patient's blood glucose was reviewed on 08/03 Glucose has been poorly controlled 2nd to the steroids and that he was poorly controlled prior to admission. Glucose better and was 156 this morning. Continue AccuCheks covering with sliding scale. Hypoglycemia protocol available as needed. Continue Lantus at night at urrent dose and continue metformin as well. (5) Hypertension: Code(s): I10 - Essential (primary) hypertension Status: Inactive Assessment and Plan: Patient has hypertension listed as a medical problem although he denies. He is not on any medications for this. Blood pressure elevated on admission which again could be stress response but suspect he has underlying HTN. We added lisinopril. BP reviewed on 08/03 and BP much better controlled. Continue to monitor. (6) Bipolar disorder: Code(s): F31.9 - Bipolar disorder, unspecified Status: Inactive Assessment and Plan: Mood is stable. Continue Lamictal and venlafaxine. (7) DVT prophylaxis: Code(s): Z29.9 - Encounter for prophylactic measures, unspecified Status: Acute Assessment and Plan: Lovenox q.12 Subjective Date/time seen: 08/03/20 15:37 Interval history: Date of service 08/03 50yo male with bipolar, pre-DM and recently diagnosed with COVID here for SOB and found to be hypoxic. Feels better today. Still short of breath. He is able ambulate to the bathroom with only minimal dyspnea. Cough is much better. No chest pain. No nausea or vomiting. Eating normally. No diarrhea. Exam Narrative: Exam Narrative: AF 98.7 117/62 80 20 94% 5L Gen - NARD Chest - Bibasilar inspiratory crackles otherwise clear. CV - RRR S1/S2. Telemetry showing PVCs. Abd - soft, NT/ND, +BS Ext - no pedal edema. Psych - normal mood and affect. Patient is pleasant and cooperative. Skin - warm and dry Objective Data Vital Signs Vital Signs: Vital Signs - 24 hr 08/02/20 16:00 08/02/20 20:00 08/02/20 22:52 Temperature 97.0 F L 98.3 F Pulse Rate 85 80 83 Respiratory Rate 20 20 Blood Pressure 138/93 H 129/87 Pulse Oximetry 92 93 93 08/02/20 23:00 08/03/20 00:00 08/03/20 04:00 Temperature 98.3 F 98 F Pulse Rate 82 88 Respiratory Rate 20 20 Blood Pressure
[2020-08-03 17:42] LABS: Glucose Point of Care 244 (65-105)
[2020-08-03] MEDS: lamoTRIgine 100 MG TABLET 200 MG PO (20:14)
[2020-08-03] MEDS: INSULIN GLARGINE (*BKC) 100 UNITS/ML 17 UNITS SUB-Q (20:20)
[2020-08-03 21:46] LABS: Glucose Point of Care 253 (65-105)
[2020-08-04] VITALS (14 sets, daily range): BP systolic 122–139; BP diastolic 70–86; PULSE 68–85; RESP 15–24; TEMP 36.1–36.8; O2SAT 77–97
[2020-08-04 07:00] LABS: Alanine Aminotransferase 62 U/L (4-50); Albumin Level 3.2 g/dL (3.5-5.1); Alkaline Phosphatase 123 U/L (38-126); Anion Gap 5 mmol/L (8-16); Aspartate Amino Transferase 62 U/L (17-59); Bilirubin,Total 0.6 mg/dL (0.2-1.3); Blood Urea Nitrogen 18 mg/dL (9-20); CRP 4.5 mg/dL (<1.0); Calcium 8.3 mg/dL (8.4-10.2); Carbon Dioxide 35 mmol/L (22-30); Chloride 96 mmol/L (98-107); Estimated CRCL calculation 151 ml/min; Estimated Glomerular Filt Rate > 60; Glucose 157 mg/dL (75-110); Lactate Dehydrogenase 929 U/L (313-618); Potassium 3.7 mmol/L (3.4-5.0); Sodium 136 mmol/L (137-145)
[2020-08-04 07:04] LABS: Partial Thromboplastin Time 29.6 SECONDS (22.3-36.8); Prothrombin Time 14.2 Seconds (11.1-14.7)
--- NOTE | 2020-08-04 07:30 | PC.NURSE ---
Radiology at bedside performing portable chest x-ray.
[2020-08-04] MEDS: DEXAMETHASONE 2 MG TABLET 6 MG PO (07:42)
[2020-08-04] MEDS: ALBUTEROL SULFATE (*SP) INHALER 2 PUFF INHALATION ×2 (07:49→15:17)
[2020-08-04 08:34] LABS: Glucose Point of Care 156 (65-105)
--- NOTE | 2020-08-04 09:11 | PM.IMPN ---
Progress Note: A&P Assessment and Plan (1) Acute respiratory failure with hypoxia: Code(s): J96.01 - Acute respiratory failure with hypoxia Status: Acute Assessment and Plan: Patient with known COVID diagnosed 07/29. Patient presents with complaints of shortness of breath and found to be hypoxic requiring supplemental oxygen. BNP 254 on admission. CXR today showing diffuse airspace disease without change (on my reading, appears worse in the LLL). Patient became acutely hypoxic this morning. No CP to suggest PE or cardiac; no dysphagia to suggest aspiration; no fevers to suggest bacterial PNA; suspect at COVID storm given he is 7 days out. Will check ABG. Discussed with food checker. plan to move to IMU and continue NRB mask and HFNC with continuous pulse ox monitoring. Consider PAP therapy if he decompensates further. Pulm consult (2) Sepsis: Code(s): A41.9 - Sepsis, unspecified organism Status: Acute Assessment and Plan: Patient with sepsis symptoms present on admission with resp failure, lactic acidosis, hypoxia, fever, and tachycardia. White count remaining normal but not checked today. Lactic acid level 3.2 but normalized on recheck. [place] all related to COVID. Continue to monitor closely. (3) COVID-19: Code(s): U07.1 - COVID-19 Status: Acute Assessment and Plan: Patient presents with fever, cough and shortness of breath. His COVID test was positive on 07/29/2020. He is hypoxic on presentation. He has been started on dexamethasone and Remdesivir Day 4. CXR today showing diffuse airspace disease without change (on my reading, appears worse in the LLL). LDH worse at 929, Ferritin worse at 1270 but CRP better at 4.5. Day 7 since onset of symptoms so now having cytokine storm. Continue supportive care. Follow inflammatory markers. Add incentive spirometer. Otherwise as above. (4) Diabetes mellitus: Code(s): E11.9 - Type 2 diabetes mellitus without complications Status: Acute Assessment and Plan: Patient's glucose was elevated on admission to [facility]. Patient has hx of pre-diabetes. A1c 8.5 so now with DM. The patient's blood glucose was reviewed on 08/04 Glucose has been poorly controlled 2nd to the steroids and that he was poorly controlled prior to admission. Glucose better in the morning in the 150's but higher during the day. Continue AccuCheks covering with sliding scale. Hypoglycemia protocol available as needed. Continue metformin. Change to Levemir Q12 to allow for more insulin during the day. (5) Hypertension: Code(s): I10 - Essential (primary) hypertension Status: Inactive Assessment and Plan: Patient has hypertension listed as a medical problem although he denies. He is not on any medications for this. Blood pressure elevated on admission which again could be stress response but suspect he has underlying HTN. We added lisinopril. BP reviewed on 08/04 and BP much better controlled. Continue to monitor. (6) Bipolar disorder: Code(s): F31.9 - Bipolar disorder, unspecified Status: Inactive Assessment and Plan: Mood is stable. Continue Lamictal and venlafaxine. (7) DVT prophylaxis: Code(s): Z29.9 - Encounter for prophylactic measures, unspecified Status: Acute Assessment and Plan: Lovenox q.12 Subjective Date/time seen: 08/04/20 09:11 Interval history: Date of service 08/04 50yo male with bipolar, pre-DM and recently diagnosed with COVID here for SOB and found to be hypoxic. patient did well overnight. He did light prone at times. He slept well. This morning however, patient had increasing shortness of breath. He became more hypoxic. Oxygen was increased to the point where now he is on high-flow nasal cannula and non-rebreather mask. States he feels better now. No chest pain. Denies any dysphagia. Feels hungry today. Cough is looser and
[2020-08-04 09:20] LABS: Alveolar/Arterial O2 Gradient 620.4 mmHg; Base Excess ABG 4.5 mEq/l (+/-2.0); Fractional Inspired Oxygen 100 %; Oxygen Content ABG 17.8 %vol (16.0-22.0); Oxygen Saturation ABG 87.2 % (95.0-100.0); Oxyhemoglobin 85.6 % THb (90.0-100.0); PCO2 ABG 42.4 mmHg (35.0-45.0); PO2 ABG 50.2 mmHg (80.0-100.0); Total Hemoglobin 14.8 g/dL (12.0-18.0); pH ABG 7.453 (7.350-7.450)
[2020-08-04 09:21] LABS: Modified Allen's Test Pass; Site Drawn RIGHT RADIAL
[2020-08-04 09:22] LABS: Device HIGH FLOW NASAL CANN
[2020-08-04] MEDS: ENOXAPARIN 40 MG/0.4 ML SYRINGE SUB-Q ×2 (09:25→20:59)
[2020-08-04] MEDS: VENLAFAXINE HCL XR 75 MG CAP.ER.24H 150 MG PO (09:25)
[2020-08-04] MEDS: metFORMIN HCL 250 MG TABLET PO ×2 (09:25→17:27)
[2020-08-04] MEDS: lisinopriL 10 MG TABLET PO (09:25)
--- NOTE | 2020-08-04 11:52 | PC.NURSE ---
This patient, Migel Estrada, was transferred to [facility] on 08/04/20 at 1140. Personal belongings sent with patient. Report given to Cristina. Appropriate documentation sent with patient.
--- NOTE | 2020-08-04 11:53 | PC.NURSE ---
This patient, Migel Estrada, was received from [facility] on 08/04/20 at 1148. Patient/family oriented to unit policies and routines
[2020-08-04] MEDS: INSULIN ASPART (*BKC) 100 UNITS/ML SUB-Q (13:15)
[2020-08-04] MEDS: REMDESIVIR 100 MG/NS 250 ML 100 MG/250 ML BAG 250 MG IVPB (14:35)
[2020-08-04 16:29] LABS: Glucose Point of Care 229 (65-105)
[2020-08-04 16:29] LABS: Glucose Point of Care 198 (65-105)
[2020-08-04] MEDS: ALBUTEROL SULFATE NEB 2.5 MG/0.5 ML INH 5 MG INHALATION (19:16)
[2020-08-04 20:55] LABS: Glucose Point of Care 213 (65-105)
[2020-08-04] MEDS: lamoTRIgine 100 MG TABLET 200 MG PO (20:59)
[2020-08-04] MEDS: INSULIN DETEMIR 100 UNITS/ML 8 UNITS SUB-Q (21:00)
[2020-08-05] VITALS (30 sets, daily range): BP systolic 104–150; BP diastolic 42–87; PULSE 64–98; RESP 16–30; TEMP 36.2–37.5; O2SAT 88–96
[2020-08-05] MEDS: ALBUTEROL SULFATE NEB 2.5 MG/0.5 ML INH 5 MG INHALATION ×4 (01:35→19:08)
[2020-08-05 05:21] LABS: Alveolar/Arterial O2 Gradient 522.9 mmHg; Fractional Inspired Oxygen 90 %; HCO3 ABG 29.1 mEq/l (22.0-26.0); Oxygen Saturation ABG 94.8 % (95.0-100.0); Oxyhemoglobin 93.6 % THb (90.0-100.0); PCO2 ABG 45.3 mmHg (35.0-45.0); PO2 ABG 72.4 mmHg (80.0-100.0); Total Hemoglobin 14.4 g/dL (12.0-18.0); pH ABG 7.425 (7.350-7.450)
[2020-08-05 05:22] LABS: Device BIPAP; Modified Allen's Test Pass; Site Drawn RIGHT RADIAL
[2020-08-05 05:23] LABS: Expiratory Pressure 8 cmH2O; Inspiratory Pressure 16 cmH2O
[2020-08-05] MEDS: lisinopriL 10 MG TABLET PO (08:11)
[2020-08-05] MEDS: VENLAFAXINE HCL XR 75 MG CAP.ER.24H 150 MG PO (08:11)
[2020-08-05] MEDS: DEXAMETHASONE 2 MG TABLET 6 MG PO (08:11)
[2020-08-05] MEDS: ENOXAPARIN 40 MG/0.4 ML SYRINGE SUB-Q ×2 (08:11→20:26)
[2020-08-05] MEDS: INSULIN DETEMIR 100 UNITS/ML 10 UNITS SUB-Q (08:28)
[2020-08-05 08:58] LABS: Glucose Point of Care 157 (65-105)
[2020-08-05 09:28] LABS: Basophils Percent Auto 0.3 % (0.2-1.2); Eosinophils Percent Auto 0.1 % (0-4.4); Hematocrit 42.3 % (42.0-52.0); Hemoglobin 14.1 g/dL (14.0-18.0); Immature Granulocyte Absolute 0.26 K/mm3 (0.00-0.031); Immature Granulocyte Percent A 2.2 % (0-0.5); Lymphocytes Absolute Auto 0.78 K/mm3 (0.9-3.2); Lymphocytes Percent Auto 6.5 % (18.3-44.2); Mean Corpuscular HGB Conc 33.3 g/dl (32-36); Mean Corpuscular Hemoglobin 30.1 pg (26-34); Mean Corpuscular Volume 90.2 fl (80-100); Mean Platelet Volume 9.7 fl (7.4-10.4); Monocytes Absolute Auto 0.5 K/mm3 (0.1-0.6); Monocytes Percent Auto 4.5 % (2.6-8.5); Neutrophils Absolute Auto 10.3 K/mm3 (1.3-6.7); Neutrophils Percent Auto 86.4 % (45.5-73.1); Platelet Count Result 393 k/mm3 (150-375); Red Blood Count 4.69 M/mm3 (4.6-6.20); Red Cell Distribution Width 12.6 % (11.5-14.5)
[2020-08-05 09:35] LABS: D Dimer 0.58 ug/mL (<0.48)
[2020-08-05] MEDS: metFORMIN HCL 250 MG TABLET PO ×2 (09:45→17:59)
[2020-08-05 09:47] LABS: Alanine Aminotransferase 137 U/L (4-50); Albumin Level 3.2 g/dL (3.5-5.1); Alkaline Phosphatase 165 U/L (38-126); Anion Gap 5 mmol/L (8-16); Aspartate Amino Transferase 125 U/L (17-59); Bilirubin,Total 1.2 mg/dL (0.2-1.3); Blood Urea Nitrogen 19 mg/dL (9-20); CRP 5.1 mg/dL (<1.0); Calcium 8.4 mg/dL (8.4-10.2); Carbon Dioxide 34 mmol/L (22-30); Chloride 97 mmol/L (98-107); Estimated CRCL calculation 178 ml/min; Estimated Glomerular Filt Rate > 60; Glucose 159 mg/dL (75-110); Lactate Dehydrogenase 1199 U/L (313-618); Potassium 3.9 mmol/L (3.4-5.0); Sodium 136 mmol/L (137-145)
[2020-08-05] MEDS: INSULIN ASPART (*BKC) 100 UNITS/ML SUB-Q (11:45)
[2020-08-05] MEDS: REMDESIVIR 100 MG/NS 250 ML 100 MG/250 ML BAG 250 MG IVPB (14:20)
[2020-08-05 16:26] LABS: Glucose Point of Care 190 (65-105)
[2020-08-05 16:26] LABS: Glucose Point of Care 210 (65-105)
--- NOTE | 2020-08-05 16:33 | PM.IMPN ---
Progress Note: A&P Assessment and Plan (1) Acute respiratory failure with hypoxia: Code(s): J96.01 - Acute respiratory failure with hypoxia Status: Acute Assessment and Plan: Patient with known COVID diagnosed 07/29. Patient presents with complaints of shortness of breath and found to be hypoxic requiring supplemental oxygen. BNP 254 on admission. CXR today showing diffuse airspace disease without change . Patient became acutely hypoxic this morning. No CP to suggest PE or cardiac; no dysphagia to suggest aspiration; no fevers to suggest bacterial PNA; sWill check ABG. . Pulm consult (2) Sepsis: Code(s): A41.9 - Sepsis, unspecified organism Status: Acute Assessment and Plan: Patient with sepsis symptoms present on admission with resp failure, lactic acidosis, hypoxia, fever, and tachycardia. White count remaining normal but not checked today. Lactic acid level 3.2 but normalized on recheck. [place] all related to COVID. Continue to monitor closely. (3) COVID-19: Code(s): U07.1 - COVID-19 Status: Acute Assessment and Plan: Patient presents with fever, cough and shortness of breath. His COVID test was positive on 07/29/2020. He is hypoxic on presentation. He has been started on dexamethasone D#6 and finished Remdesivir. CXR today showing diffuse airspace disease without change LDH , and Ferritin sllightly worse but CRP stable at 5.1. Day 7 since onset of symptoms and will try convalescent plasma although may not be as affective as would have been earlier. Continue supportive care. Follow inflammatory markers. Add incentive spirometer. Otherwise as above. (4) Diabetes mellitus: Code(s): E11.9 - Type 2 diabetes mellitus without complications Status: Acute Assessment and Plan: Patient's glucose was elevated on admission to 278. Patient has hx of pre-diabetes. A1c 8.5 so now with DM. The patient's blood glucose was reviewed on 08/05 Glucose has been poorly controlled 2nd to the steroids and that he was poorly controlled prior to admission. Glucose better in the morning in the 150's but higher during the day. Continue AccuCheks covering with sliding scale. Hypoglycemia protocol available as needed. Continue metformin. Changed to Levemir Q12 to allow for more insulin during the day. (5) Hypertension: Code(s): I10 - Essential (primary) hypertension Status: Inactive Assessment and Plan: Patient has hypertension listed as a medical problem although he denies. He is not on any medications for this. Blood pressure elevated on admission which again could be stress response but suspect he has underlying HTN. added lisinopril. BP reviewed on 08/04 and BP better controlled. Continue to monitor. (6) Bipolar disorder: Code(s): F31.9 - Bipolar disorder, unspecified Status: Inactive Assessment and Plan: Mood is stable. Continue Lamictal and venlafaxine. (7) DVT prophylaxis: Code(s): Z29.9 - Encounter for prophylactic measures, unspecified Status: Acute Assessment and Plan: Lovenox q.12 Subjective Date/time seen: 08/05/20 16:33 Interval history: Date of service 08/05 50yo male with bipolar, pre-DM and recently diagnosed with COVID here for SOB and found to be hypoxic. Oxygen was increased to the point where now he is on 100% with bipap and maintain sats. States he feels better now. No chest pain. Denies any dysphagia. . Cough is looser and is productive yellow sputum. Exam Narrative: Exam Narrative: AF 98.2 150/80 80 20 92% bipap 100% 16/8 rate 15 Gen - NARD, appears comfortable Chest - diffuse inspiratory wheezing throughout CV - RRR S1/S2 Abd - soft, NT/ND, +BS Ext - trace pedal edema. Psych - normal mood and affect Skin - mild diaphoresis Objective Data Vital Signs Vital Signs: Vital Signs - 24 hr 08/04/20 19:16 08/04/20 19:32 08/04/20
[2020-08-05] MEDS: lamoTRIgine 100 MG TABLET 200 MG PO (20:26)
[2020-08-05] MEDS: INSULIN DETEMIR 100 UNITS/ML 8 UNITS SUB-Q (20:26)
[2020-08-05] MEDS: ACETAMINOPHEN 325 MG TABLET 650 MG PO (20:27)
[2020-08-05 20:41] LABS: Glucose Point of Care 166 (65-105)
--- NOTE | 2020-08-05 22:16 | PM.CNPUL ---
Assessment and Plan Assessment and plan (1) Acute respiratory failure with hypoxia: Code(s): J96.01 - Acute respiratory failure with hypoxia Status: Acute Assessment and Plan: - admitted Aug 01 with (+) COVID Nov 11 - intubated Jul 18; severe bilateral infiltrates, poor oxygenation, shock requiring levophed and volume resuscitation managed by Dr Mccullough - Rx with remdesivir and dexamethasone; - inflammatory markers have increased; ferritin in increasing; repeat lactic acid - continue protective ventilator strategy to reduce chance of ptx - continue glycemic control, DVT prophylaxis, GI prophylaxis, maintain normal electrolytes, and start tube feeds (2) COVID-19: Code(s): U07.1 - COVID-19 Status: Acute Assessment and Plan: - diffuse progressive infiltrates and hypoxemia consistent with COVID pneumonia - see above for treatment plans History of Present Illness History of Present Illness Consult date: 08/06/20 Requesting physician: Deon Rodriguez MD Reason for consult: hypoxemia Chief complaint: COVID 19, Hypoxia, Sepsis Narrative: NEW CONSULT: Migel Estrada is a 50 year old male who was admitted with fever, cough and shortness of breath; other symptoms included headache, decreased appetite, and loss of smell and taste. He had a negative COVID test a week prior to admission, and a (+) test 2 days prior to admission on Jul 30 at an Urgent Care. He was sent home with a nebulizer and albuterol which he used up to 6 times a day. He was admitted Aug 01 with hypoxemia, fever and tachycardia; was treated with remdesivir and dexamethasone; has worsened and today Jul 18 he was moved to the ICU Room 4, required intubation @ 15:00, and after this his BP dropped. Dr. Mccullough placed a RIJ TLC for Levophed. He has been febrile, and received Tylenol in his NG tube. CXR is worsening with bilateral infiltrates. He is fragile as far as his oxygenation, and with suctioning, saturation drops from 96% to 87% and takes a while to recover. Current vent settings: CMV f=24; TV 450 ml, FiO2 1.0; PEEP 15. Current infusions: * fentanyl 150 mcg/hour * versed 6 mg/hour * propofol 10 mcg/kg/minute * norepinephrine 5 mcg/minute CURRENT MED LIST- in addition to the infusions albuterol Calcium gluconate infusion Dexamethasone 6 mg a day x 9 doses Lovenox 40 mg sub-! Q 12 hours Lasix 40 mg one dose Determir insulin lamotrigine 200 mg HS lisinopril 10 mg a day-now he is hypotensive venlafaxine 150 mg a day pantoprazole 40 mg a day DATA: Aug 01: Lactic acid was 3.2 and CRP was 13. LFTs are mildly elevated. Ferritin is trending upward; Aug 02 - 1410 --> 1180 --> 1270--> 1430 Aug 05 Glucose was in the 300s, now with insulin better controlled ............................................ His underling medical issues include: bipolar disorder, pre-diabetes on metformin until a year ago when he lost contact with his doctor, new diagnosis of hypertension at the time of this admission, hyperlipidemia. Review of Systems Review of Systems: All systems reviewed & are unremarkable except as noted in HPI and below (intubated and sedated) [facility] Past Medical History Medical History Bipolar disorder Depression Diabetes mellitus Hypertension patient denies Surgical History Surgical History History of appendectomy Family History Family History Other Family history of alcoholism Family history of mental disorder Social History Social History Social History: He lives at home with his and 3 children. He denies tobacco alcohol drug use. 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 He is a full code. Nominates his to be the individual would make medical decisions for if he is not able. Smoking status: Never smoker Second hand
[2020-08-06] VITALS (35 sets, daily range): BP systolic 74–161; BP diastolic 47–109; PULSE 63–110; RESP 20–28; TEMP 36.2–38.2; O2SAT 86–100
[2020-08-06] MEDS: ALBUTEROL SULFATE NEB 2.5 MG/0.5 ML INH 5 MG INHALATION ×2 (03:03→09:50)
[2020-08-06 04:39] LABS: Basophils Percent Auto 0.3 % (0.2-1.2); Eosinophils Percent Auto 0.3 % (0-4.4); Hematocrit 39.6 % (42.0-52.0); Hemoglobin 12.9 g/dL (14.0-18.0); Immature Granulocyte Absolute 0.26 K/mm3 (0.00-0.031); Immature Granulocyte Percent A 2.2 % (0-0.5); Lymphocytes Absolute Auto 0.81 K/mm3 (0.9-3.2); Lymphocytes Percent Auto 6.9 % (18.3-44.2); Mean Corpuscular HGB Conc 32.6 g/dl (32-36); Mean Corpuscular Hemoglobin 29.5 pg (26-34); Mean Corpuscular Volume 90.4 fl (80-100); Mean Platelet Volume 9.8 fl (7.4-10.4); Monocytes Absolute Auto 0.4 K/mm3 (0.1-0.6); Monocytes Percent Auto 3.5 % (2.6-8.5); Neutrophils Absolute Auto 10.2 K/mm3 (1.3-6.7); Neutrophils Percent Auto 86.8 % (45.5-73.1); Platelet Count Result 379 k/mm3 (150-375); Red Blood Count 4.38 M/mm3 (4.6-6.20); Red Cell Distribution Width 12.4 % (11.5-14.5); White Blood Count 11.7 K/mm3 (4.5-10.0)
[2020-08-06 04:53] LABS: Alanine Aminotransferase 122 U/L (4-50); Albumin Level 2.6 g/dL (3.5-5.1); Alkaline Phosphatase 147 U/L (38-126); Anion Gap 4 mmol/L (8-16); Aspartate Amino Transferase 92 U/L (17-59); Blood Urea Nitrogen 19 mg/dL (9-20); Calcium 7.3 mg/dL (8.4-10.2); Carbon Dioxide 31 mmol/L (22-30); Chloride 103 mmol/L (98-107); Estimated CRCL calculation 178 ml/min; Estimated Glomerular Filt Rate > 60; Glucose 109 mg/dL (75-110); Lactate Dehydrogenase 1018 U/L (313-618); Potassium 3.2 mmol/L (3.4-5.0); Sodium 138 mmol/L (137-145)
[2020-08-06 05:38] LABS: D Dimer 0.55 ug/mL (<0.48)
[2020-08-06 06:14] LABS: Vitamin D 25 Hydroxy < 12.8 ng/mL
[2020-08-06] MEDS: ENOXAPARIN 40 MG/0.4 ML SYRINGE SUB-Q ×2 (09:08→21:36)
[2020-08-06] MEDS: VENLAFAXINE HCL XR 75 MG CAP.ER.24H 150 MG PO (09:08)
[2020-08-06] MEDS: lisinopriL 10 MG TABLET PO (09:08)
[2020-08-06] MEDS: DEXAMETHASONE 2 MG TABLET 6 MG PO (09:08)
[2020-08-06] MEDS: INSULIN DETEMIR 100 UNITS/ML 10 UNITS SUB-Q (09:17)
[2020-08-06] MEDS: ACETAMINOPHEN 325 MG TABLET 650 MG PO ×2 (09:24→21:47)
[2020-08-06 09:26] LABS: Glucose Point of Care 123 (65-105)
[2020-08-06] MEDS: FUROSEMIDE INJ 40 MG/4 ML VIAL IV PUSH (11:17)
--- NOTE | 2020-08-06 12:10 | WPDCNINT ---
Assessment and Plan Assessment and plan (1) Acute respiratory failure with hypoxia: Code(s): J96.01 - Acute respiratory failure with hypoxia Status: Acute Assessment and Plan: Acute Respiratory failure secondary to COVID-19 pneumonia Continue BiPAP support to prevent hypoxemia/hypercarbia and end organ damage. transfer to ICU will give Lasix 40 mg IV as patient is positive on his balance ABG and PCXR reviewed and will repeat in am. although patient does not appear to be in respiratory distress he is fairly hypoxic if he does not improve with Lasix, he may need intubation. Patient is agreeable to intubation if needed (2) COVID-19: Code(s): U07.1 - COVID-19 Status: Acute Assessment and Plan: His COVID test was positive on 07/29/2020. Dexamethasone started 08/02 completed course of Remdesivir. Discussed benefits and risks of convalscent plasma therapy for COVID-19. I explained patient the risks of donor plasma which includes allergic reaction, transfusion reaction, possible transmission of infections like Hepatitis and HIV and even . Explained that donor plasma has shown benefit in some studies but is not a proven therapy. Patient understands the risks, is agreeable to proceed and gave his informed consent. although patient is > 7 days out of his positive test, he is still deteriorating and has not required mechanical ventilation. I have placed order for 1 unit of convalscent plasma (3) Diabetes mellitus: Code(s): E11.9 - Type 2 diabetes mellitus without complications Status: Acute Assessment and Plan: Patient's glucose was elevated on admission to 278. Patient has hx of pre-diabetes. A1c 8.5 so now with DM. continue Levemir and sliding scale will hold metformin at this time (4) Hypertension: Code(s): I10 - Essential (primary) hypertension Status: Inactive Assessment and Plan: continue lisinopril BP in controlled at this time Continue to monitor. (5) Bipolar disorder: Code(s): F31.9 - Bipolar disorder, unspecified Status: Inactive Assessment and Plan: Continue Lamictal and venlafaxine. (6) DVT prophylaxis: Code(s): Z29.9 - Encounter for prophylactic measures, unspecified Status: Acute Assessment and Plan: Lovenox q.12 (7) Electrolyte abnormality: Code(s): E87.8 - Other disorders of electrolyte and fluid balance, not elsewhere classified Status: Acute Assessment and Plan: replace low potassium and calcium Additional Plan Code Status - Full Code Total Critical Care Time - 35 minutes Due to a high probability of clinically significant, life threatening deterioration, the patient required my highest level of preparedness to intervene emergently and I personally spent this critical care time directly and personally managing the patient. This critical care time included obtaining a history; examining the patient; pulse oximetry; ordering and review of studies; arranging urgent treatment with development of a management plan; evaluation of patient's response to treatment; frequent reassessment; and discussions with other providers. It was exclusive of separately billable procedures and treating other patients and teaching time. Please see Assessment and Plan section and the rest of the note for further information on patient assessment and treatment [facility] Consult Note Consult date: 08/06/20 Time Seen: 07:30 HPI: Migel Estrada is a 50 year old male male with bipolar disorder and pre diabetes who who presented with chief complaint of fever, SOB and cough on 08/01 patient was found to be positive for COVID-19 and was admitted. Or his hospital course patient's hypoxia has worsened. Initially nasal cannula then was switched to airvo and will yesterday BiPAP.. I was consulted for further evaluation and management of patient respirat
[2020-08-06] MEDS: CALCIUM GLUC 2,000 MG/NS 100ML 2,000 MG/100 ML BAG 100 MG IVPB (12:49)
[2020-08-06] MEDS: INSULIN ASPART (*BKC) 100 UNITS/ML SUB-Q ×2 (12:58→18:55)
[2020-08-06 13:24] LABS: Glucose Point of Care 241 (65-105)
--- NOTE | 2020-08-06 15:20 | PC.NURSE ---
This patient, Migel Estrada, was transferred to ICU 4 on 08/06/20 at 1520. Personal belongings sent with patient. Report given to KAELA Echeverria. Appropriate documentation sent with patient.
[2020-08-06] MEDS: FENTANYL 2,500MCG/NS250ML(*CRX 2,500 MCG/250 ML BAG 15 MCG IV CONT (16:00)
--- NOTE | 2020-08-06 16:15 | WPDPROCEDUR ---
Procedures Intubation Intubation Date: 08/06/20 Intubation Time: 15:15 A pre-procedural Time-Out was completed immediately before starting the procedure and confirmed: Patient Identification, Site, Procedure, Patient Position and the Availability of Requisite Equipment: Yes Sedative: etomidate Mg given: 20 Paralytic: succinylcholine Mg given: 100 Laryngoscope: fiber optic video scope Assist device used: fiber optic device ET tube size: 7.5 Tube secured depth (cm): 25 Tube secured location: lips Tube placement confirmation: visualized tube passing through cords and equal breath sounds bilaterally Patient tolerated procedure: well Intubation complications: none
--- NOTE | 2020-08-06 16:16 | P.PNCROSS_ITS ---
Event Note Event Note Event Note: After my initial consultation I went back to check on the patient and step-down unit and he appeared to not be any distress and maintain saturation on the BiPAP. Patient was later transferred to ICU and when I saw the patient in ICU he appeared to be tiring. he told me that he feels that his chest is congested and he is unable to breathe. Saturation was now on 86/87 % on 100% FiO2 on BiPAP. Again spoke to patient regarding intubation and he was agreeable for intubation at that time. patient was intubated without any difficulty but post intubation patient became hypoxic and had to be bagged for long time. we did not had irregular ventilator and used a BiPAP machine in AVAPS mode but it did not work it was unable to provide in a pressure for ventilation. patient was given a dose of Roxicodone EM and Versed to sedate and paralyze so he was not fighting the ventilator. patient was bagged again and a new ventilator was obtained which again had difficulty in setting up. director of agriculture was called for assistance in set up off the ventilator. Patient was finally placed on ventilator and PEEP had to be increased to up to 15 to maintain saturation. patient was started on Versed and fentanyl infusion for sedation. I obtained a chest x-ray which shows ET tube in adequate position although little bit on the lower side. NG tube is in adequate position. I would withdraw ETT by 2 cm. Patient will be started on stress ulcer prophylaxis additional critical care time 70 minutes except separately billed procedures.
[2020-08-06 16:57] LABS: Alveolar/Arterial O2 Gradient 590.6 mmHg; Base Excess ABG 2.6 mEq/l (+/-2.0); Carboxyhemoglobin 0.2 % THb (0-2.0); Fractional Inspired Oxygen 100 %; HCO3 ABG 29.5 mEq/l (22.0-26.0); Methemoglobin ABG 0.3 %THb (0-1.5); Oxygen Content ABG 19.1 %vol (16.0-22.0); Oxygen Saturation ABG 92.4 % (95.0-100.0); PCO2 ABG 54.5 mmHg (35.0-45.0); PO2 ABG 67.9 mmHg (80.0-100.0); PO2 FiO2 Ratio Arterial Blood 0.68 %; Reduced Hemoglobin 8.5 %THb (0-5.0); Site Drawn RIGHT RADIAL; Total Hemoglobin 14.9 g/dL (12.0-18.0); pH ABG 7.351 (7.350-7.450)
[2020-08-06 16:58] LABS: Arterial Blood Gas PEEP 15 cmH2O; Arterial Blood Gas Vent Mode ASSIST CONTROL; Arterial Blood Gas Ventilator rate 20 /MIN; Device VENTILATOR; Modified Allen's Test Pass
[2020-08-06 16:59] LABS: Arterial Blood Gas Tidal Volume 450 ml
[2020-08-06] MEDS: PROPOFOL IV EMULSION 100 ML 20.29 MG IV CONT (17:00)
--- NOTE | 2020-08-06 17:05 | PM.IMPN ---
Progress Note: A&P Assessment and Plan (1) Acute respiratory failure with hypoxia: Code(s): J96.01 - Acute respiratory failure with hypoxia Status: Acute Assessment and Plan: Patient with known COVID diagnosed 07/29. Patient presents with complaints of shortness of breath and found to be hypoxic requiring supplemental oxygen. BNP 254 on admission. CXR today showing diffuse airspace disease without change . Patient became more hypoxic this morning. No CP to suggest PE or cardiac; no dysphagia to suggest aspiration; no fevers to suggest bacterial PNA; bipap adjusted to maintain 02 sat at 90 and move to IVU when bed becomes available (2) Sepsis: Code(s): A41.9 - Sepsis, unspecified organism Status: Acute Assessment and Plan: Patient with sepsis symptoms present on admission with resp failure, lactic acidosis, hypoxia, fever, and tachycardia. White count remaining normal . Lactic acid level 3.2 but normalized on recheck. [place] all related to COVID. Continue to monitor closely. (3) COVID-19: Code(s): U07.1 - COVID-19 Status: Acute Assessment and Plan: Patient presents with fever, cough and shortness of breath. His COVID test was positive on 07/29/2020. He is hypoxic on presentation. He has been started on dexamethasone D#7 and finished Remdesivir. CXR today showing diffuse airspace disease without change At least day 8 since onset of symptoms and tried to get convalescent plasma but not readily available so passed window of opportunity . Continue supportive care. Follow inflammatory markers. Add incentive spirometer. Otherwise as above. (4) Diabetes mellitus: Code(s): E11.9 - Type 2 diabetes mellitus without complications Status: Acute Assessment and Plan: Patient's glucose was elevated on admission to [facility]. Patient has hx of pre-diabetes. A1c 8.5 so now with DM. The patient's blood glucose was reviewed on 08/06 FBS 109 Glucose has been poorly controlled 2nd to the steroids and that he was poorly controlled prior to admission. Glucose better in the morning in the 150's but higher during the day. Continue AccuCheks covering with sliding scale. Hypoglycemia protocol available as needed. Continue metformin. Changed to Levemir Q12 to allow for more insulin during the day. (5) Hypertension: Code(s): I10 - Essential (primary) hypertension Status: Inactive Assessment and Plan: Patient has hypertension listed as a medical problem although he denies. He is not on any medications for this. Blood pressure elevated on admission which again could be stress response but suspect he has underlying HTN. added lisinopril. BP reviewed on 08/06 and BP better controlled. Continue to monitor. (6) Bipolar disorder: Code(s): F31.9 - Bipolar disorder, unspecified Status: Inactive Assessment and Plan: Mood is stable. Continue Lamictal and venlafaxine. (7) DVT prophylaxis: Code(s): Z29.9 - Encounter for prophylactic measures, unspecified Status: Acute Assessment and Plan: Lovenox q.12 Subjective Date/time seen: 08/06/20 17:05 Interval history: Date of service 08/06 50yo male with bipolar, pre-DM and recently diagnosed with COVID here for SOB and found to be hypoxic. Oxygen was increased to the point where now he is on 100% with bipap and maintain sats. States he feels no worse and slept fair, tolerating bipap Exam Narrative: Exam Narrative: AF 98.2 128/94 92 22 89% bipap 100% 22/8 rate 15 Gen - NARD, appears comfortable Chest - no wheeze today , distant BS CV - RRR S1/S2 Abd - soft, NT/ND, +BS Ext - trace pedal edema. Psych - normal mood and affect Skin - mild diaphoresis Objective Data Vital Signs Vital Signs: Vital Signs - 24 hr 08/05/20 18:00 08/05/20 19:08 08/05/20 19:31 Temperature Pulse Rate 74 69 78 Respiratory Rate 30 H 30 H Blood Pressur
[2020-08-06] MEDS: SODIUM CHLORIDE 0.9% IV 500 ML 999 ML IV CONT (18:10)
[2020-08-06 18:54] LABS: Glucose Point of Care 208 (65-105)
[2020-08-06] MEDS: NOREPINEPHRINE 8 MG/D5W 250 ML 8 MG/250 ML BAG 9.38 MG IV CONT (19:30)
--- NOTE | 2020-08-06 19:42 | P.PCNBED_ITS ---
Procedures Central Line Placement Right IJ: Central Line Date: 08/06/20 Central Line Time: 19:43 Discussed w/ the patient/family/POA,the placement of a central venous catheter, including its clinical necessity/indication & associated potential risks, benifits and alternatives.: Yes Patient Position: trendelenburg Patient placed on monitor/pulse ox: Yes Provider Prep: mask, sterile gown, sterile gloves, Max. sterile barrier precautions, cap and hand hygiene with conventional soap/water or alcohol based hand rub Central line prep: 2% Chlorhexidine scrub Central line lumen inserted: triple Frisian: 7 Length (cm): 17 Depth of Insertion (cm): 16 Post Procedure: sutured in place, good blood return, all ports aspirated, flushed, capped, transparent dressing, securement product and aseptic technique maintained throughout procedure Post procedure x-ray: tip of catheter in good position and no pneumothorax seen Patient tolerated procedure: well Complications: none Additional comments: Date of service of procedure was 08/06/2020 at 07:20 hrs.
--- NOTE | 2020-08-06 19:54 | PC.NURSE ---
1515-PATIENT BROUGHT TO ICU [address] LOPEZ AT BEDSIDE. PATIENT ON BIPAP WITH O2 SATS 84-86%. DR. LOPEZ DISCUSSING SITUATION WITH PATIENT. HE IS AGREEING TO BE INTUBATED.
[2020-08-06] MEDS: PROPOFOL IV EMULSION 100 ML 10.14 MG IV CONT (20:32)
[2020-08-06] MEDS: lamoTRIgine 100 MG TABLET 200 MG PO (21:36)
[2020-08-06] MEDS: INSULIN DETEMIR 100 UNITS/ML 8 UNITS SUB-Q (21:38)
[2020-08-07] VITALS (50 sets, daily range): BP systolic 81–117; BP diastolic 49–75; PULSE 62–100; RESP 20–24; TEMP 37–39.1; O2SAT 93–100; BMI 37.8
[2020-08-07] MEDS: INSULIN ASPART (*BKC) 100 UNITS/ML SUB-Q ×2 (01:03→05:56)
[2020-08-07] MEDS: SODIUM CHLORIDE 0.9% IV 1,000 ML 75 ML IV CONT ×3 (01:15→21:22)
[2020-08-07] MEDS: ALBUTEROL SULFATE NEB 2.5 MG/0.5 ML INH 5 MG INHALATION ×4 (01:38→20:39)
[2020-08-07 01:46] LABS: Glucose Point of Care 226 (65-105)
[2020-08-07] MEDS: ACETAMINOPHEN 325 MG TABLET 650 MG PO ×2 (04:52→13:27)
[2020-08-07 05:00] LABS: Hematocrit 41.2 % (42.0-52.0); Hemoglobin 13.4 g/dL (14.0-18.0); Mean Corpuscular HGB Conc 32.5 g/dl (32-36); Mean Corpuscular Hemoglobin 29.6 pg (26-34); Mean Corpuscular Volume 90.9 fl (80-100); Mean Platelet Volume 9.9 fl (7.4-10.4); Platelet Count Result 482 k/mm3 (150-375); Red Blood Count 4.53 M/mm3 (4.6-6.20); Red Cell Distribution Width 12.8 % (11.5-14.5); White Blood Count 15.3 K/mm3 (4.5-10.0)
[2020-08-07 05:10] LABS: Lactic Acid Reflex 1.7 mmol/L (0.7-2.1)
[2020-08-07 05:34] LABS: Alanine Aminotransferase 124 U/L (4-50); Alkaline Phosphatase 196 U/L (38-126); Anion Gap 8 mmol/L (8-16); Aspartate Amino Transferase 67 U/L (17-59); Bilirubin,Total 0.8 mg/dL (0.2-1.3); Blood Urea Nitrogen 30 mg/dL (9-20); Calcium 8.5 mg/dL (8.4-10.2); Carbon Dioxide 31 mmol/L (22-30); Chloride 99 mmol/L (98-107); Estimated CRCL calculation 94 ml/min; Estimated Glomerular Filt Rate > 60; Glucose 201 mg/dL (75-110); Magnesium 2.4 mg/dL (1.6-2.3); Potassium 3.9 mmol/L (3.4-5.0); Sodium 138 mmol/L (137-145)
[2020-08-07] MEDS: CENTRAL LINE FLUSH 10 ML IV PUSH ×4 (05:56→20:57)
[2020-08-07 06:12] LABS: Alveolar/Arterial O2 Gradient 427.3 mmHg; Base Excess ABG -0.1 mEq/l (+/-2.0); Carboxyhemoglobin 0.3 % THb (0-2.0); Fractional Inspired Oxygen 80 %; HCO3 ABG 25.9 mEq/l (22.0-26.0); Methemoglobin ABG 0.3 %THb (0-1.5); Oxygen Content ABG 21.2 %vol (16.0-22.0); Oxygen Saturation ABG 96.8 % (95.0-100.0); Oxyhemoglobin 95.8 % THb (90.0-100.0); PCO2 ABG 47.3 mmHg (35.0-45.0); PO2 ABG 93.4 mmHg (80.0-100.0); PO2 FiO2 Ratio Arterial Blood 1.17 %; Reduced Hemoglobin 3.6 %THb (0-5.0); Total Hemoglobin 15.7 g/dL (12.0-18.0); pH ABG 7.357 (7.350-7.450)
[2020-08-07 06:13] LABS: Device VENTILATOR; Modified Allen's Test Pass; Site Drawn RIGHT RADIAL
[2020-08-07 06:14] LABS: Arterial Blood Gas PEEP 15 cmH2O; Arterial Blood Gas Tidal Volume 450 ml; Arterial Blood Gas Vent Mode CMV; Arterial Blood Gas Ventilator rate 24 /MIN
[2020-08-07] MEDS: DEXAMETHASONE 2 MG TABLET 6 MG PO (08:28)
[2020-08-07] MEDS: PANTOPRAZOLE SODIUM IV 40 MG VIAL IV PUSH (08:28)
[2020-08-07] MEDS: ENOXAPARIN 40 MG/0.4 ML SYRINGE SUB-Q ×2 (08:28→20:56)
[2020-08-07] MEDS: VENLAFAXINE HCL XR 75 MG CAP.ER.24H 150 MG PO (08:29)
[2020-08-07] MEDS: INSULIN DETEMIR 100 UNITS/ML 10 UNITS SUB-Q (08:29)
[2020-08-07] MEDS: FENTANYL 2,500MCG/NS250ML(*CRX 2,500 MCG/250 ML BAG 12.5 MCG IV CONT (08:46)
--- NOTE | 2020-08-07 09:06 | WPDINTPN ---
Progress Note: A&P Assessment and Plan (1) Acute respiratory failure with hypoxia: Code(s): J96.01 - Acute respiratory failure with hypoxia Status: Acute Assessment and Plan: Acute Respiratory failure secondary to COVID-19 pneumonia COVID test was positive on 07/29/2020, Admitted 08/01 High-flow nasal cannula 08/04 BiPAP 08/05 transferred to ICU and intubated 08/06 Continue mechanical ventilation support to prevent hypoxemia/hypercarbia and end organ damage. patient on low tidal volume ventilation and PEEP of 15. FiO2 weaned down to 80% ABG and PCXR reviewed and will repeat in am. will try prone ventilation today if patient tolerates did receive a dose of Lasix yesterday without any significant improvement (2) COVID-19: Code(s): U07.1 - COVID-19 Status: Acute Assessment and Plan: His COVID test was positive on 07/29/2020. Dexamethasone started 08/02 completed course of Remdesivir. patient had 1 unit of convalscent plasma ordered yesterday prior to intubation but we have been unable to secure a matching plasma for this patient at this time. as for blood bank it will be several days before will be able to obtain 1 unit. since patient is already more than 1 week out of his diagnosis and also now intubated. will hold plasma as is no proven benefit once patients are on mechanical ventilation and late in the course (3) Diabetes mellitus: Code(s): E11.9 - Type 2 diabetes mellitus without complications Status: Acute Assessment and Plan: Patient's glucose was elevated on admission to 278. Patient has hx of pre-diabetes. A1c 8.5 so now with DM. continue Levemir and sliding scale. Increase dose will hold metformin at this time (4) Bipolar disorder: Code(s): F31.9 - Bipolar disorder, unspecified Status: Inactive Assessment and Plan: Continue Lamictal and venlafaxine. (5) DVT prophylaxis: Code(s): Z29.9 - Encounter for prophylactic measures, unspecified Status: Acute Assessment and Plan: Lovenox q.12 (6) Electrolyte abnormality: Code(s): E87.8 - Other disorders of electrolyte and fluid balance, not elsewhere classified Status: Acute Assessment and Plan: replace low potassium and calcium (7) Hypotension: Code(s): I95.9 - Hypotension, unspecified Status: Acute Assessment and Plan: likely secondary for sedation continue low-dose Levophed Additional Plan Code Status - Full Code Total Critical Care Time - 32 minutes Due to a high probability of clinically significant, life threatening deterioration, the patient required my highest level of preparedness to intervene emergently and I personally spent this critical care time directly and personally managing the patient. This critical care time included obtaining a history; examining the patient; pulse oximetry; ordering and review of studies; arranging urgent treatment with development of a management plan; evaluation of patient's response to treatment; frequent reassessment; and discussions with other providers. It was exclusive of separately billable procedures and treating other patients and teaching time. Please see Assessment and Plan section and the rest of the note for further information on patient assessment and treatment Subjective Date/time seen: 08/07/20 Overnight events reviewed. Central venous catheter placed. patient started on Levophed for low blood pressure after a small fluid bolus Afebrile Continues to be on mechanical ventilation Continues to be sedated Vitals acceptable Review of Systems Review of Systems: ROS unobtainable: Yes unobtainable due to endotracheal tube Exam Narrative: Exam Narrative: General: Pt is sedated, intubated and on mechanical ventilation Lungs/Chest: Trachea central Coarse BS B/L, No crackles or wheezing. Cardiac: RRR. Normal S1 S2. No murmurs Circu
--- NOTE | 2020-08-07 11:24 | PCDIET ---
initiating Glucerna 1.2 tube feedings at 40mL/hr today. Recommend advancing toward goal of 65mL/hr with Pro-Stat 1x daily once medically appropriate which will provide 1816kcal, 100g protein and 1151mL free water, given 22 hour/day infusion.
[2020-08-07 11:47] LABS: Glucose Point of Care 165 (65-105)
[2020-08-07] MEDS: PROPOFOL IV EMULSION 100 ML 10.14 MG IV CONT (13:28)
[2020-08-07] MEDS: ROCURONIUM BROMIDE 50 MG/5 ML VIAL IV PUSH (14:21)
--- NOTE | 2020-08-07 16:48 | PM.IMPN ---
Progress Note: A&P Assessment and Plan (1) Acute respiratory failure with hypoxia: Code(s): J96.01 - Acute respiratory failure with hypoxia Status: Acute Assessment and Plan: Patient with known COVID diagnosed 07/29. Patient presents with complaints of shortness of breath and found to be hypoxic requiring supplemental oxygen. BNP 254 on admission. CXR today showing diffuse airspace disease without change . Patient became more hypoxic morning 08/06 . No CP to suggest PE or cardiac; no dysphagia to suggest aspiration; no fevers to suggest bacterial PNA; bipap failed 08/06 and intubated on respirator now (2) Sepsis: Code(s): A41.9 - Sepsis, unspecified organism Status: Acute Assessment and Plan: Patient with sepsis symptoms present on admission with resp failure, lactic acidosis, hypoxia, fever, and tachycardia. White count remaining normal . Lactic acid level 3.2 but normalized on recheck. [place] all related to COVID. Continue to monitor closely. (3) COVID-19: Code(s): U07.1 - COVID-19 Status: Acute Assessment and Plan: Patient presents with fever, cough and shortness of breath. His COVID test was positive on 07/29/2020. He is hypoxic on presentation. He has been started on dexamethasone D#8 and finished Remdesivir. CXR today showing diffuse airspace disease without change At least day 9 since onset of symptoms and tried to get convalescent plasma but not readily available so passed window of opportunity . Continue supportive care. Follow inflammatory markers. (4) Diabetes mellitus: Code(s): E11.9 - Type 2 diabetes mellitus without complications Status: Acute Assessment and Plan: Patient's glucose was elevated on admission to 278. Patient has hx of pre-diabetes. A1c 8.5 so now with DM. The patient's blood glucose was reviewed on 08/06 FBS 109 Glucose has been poorly controlled 2nd to the steroids and that he was poorly controlled prior to admission. Glucose better in the morning in the 150's but higher during the day. Continue AccuCheks covering with sliding scale. Hypoglycemia protocol available as needed. Continue metformin. Changed to Levemir Q12 to allow for more insulin during the day. (5) Hypertension: Code(s): I10 - Essential (primary) hypertension Status: Inactive Assessment and Plan: Patient has hypertension listed as a medical problem although he denies. He is not on any medications for this. Blood pressure elevated on admission which again could be stress response but suspect he has underlying HTN. added lisinopril but now on hold. BP reviewed on 08/07 and BP low so lisinopril on hold. Continue to monitor. (6) Bipolar disorder: Code(s): F31.9 - Bipolar disorder, unspecified Status: Inactive Assessment and Plan: Mood is stable. Continue Lamictal and venlafaxine. (7) DVT prophylaxis: Code(s): Z29.9 - Encounter for prophylactic measures, unspecified Status: Acute Assessment and Plan: Lovenox q.12 Subjective Date/time seen: 08/07/20 16:48 Interval history: Date of service 08/07 50yo male with bipolar, pre-DM and recently diagnosed with COVID here for SOB and found to be hypoxic. Oxygen was increased to the point where now he is on 100% with bipap and maintain sats. Intubated and mechanically ventilated 08/06 p.m. Exam Narrative: Exam Narrative: T 38.7 94/60 94 24 90% FIO2 70% and 15 peep Gen - NARD, appears comfortable Chest - no wheeze today , distant BS CV - RRR S1/S2 Abd - soft, NT/ND, +BS Ext - trace pedal edema. Psych - normal mood and affect Skin - mild diaphoresis Objective Data Vital Signs Vital Signs: Vital Signs - 24 hr 08/06/20 17:00 08/06/20 17:45 08/06/20 18:00 Temperature Pulse Rate 82 82 81 Respiratory Rate 20 20 20 Blood Pressure Pulse Oximetry 08/06/20 19:00 08/06/20 19:07 08/06/20
--- NOTE | 2020-08-07 17:00 | PM.IMPN ---
Subjective Date/time seen: 08/07/20 17:00 Interval history: Date of service 08/07 50yo male with bipolar, pre-DM and recently diagnosed with COVID here for SOB and found to be hypoxic. Oxygen was increased to the point where now he is on 100% with bipap and maintain sats. Intubated and mechanically ventilated 08/06 p.m. Objective Data Vital Signs Vital Signs: Vital Signs - 24 hr 08/06/20 17:45 08/06/20 18:00 08/06/20 19:00 Temperature 36.9 C Pulse Rate 82 81 77 Respiratory Rate 20 20 23 H Blood Pressure 75/57 L Pulse Oximetry 87 L 08/06/20 19:07 08/06/20 19:30 08/06/20 19:40 Temperature 37.1 C Pulse Rate 78 73 81 Respiratory Rate 23 H 20 Blood Pressure 95/64 L Pulse Oximetry 89 L 86 L 08/06/20 20:00 08/06/20 20:32 08/06/20 21:00 Temperature 37.2 C Pulse Rate 67 63 65 Respiratory Rate 23 H 20 23 H Blood Pressure 103/69 108/70 Pulse Oximetry 93 98 08/06/20 21:25 08/06/20 21:30 08/06/20 21:33 Temperature Pulse Rate 69 73 72 Respiratory Rate 24 H 21 H 24 H Blood Pressure 104/69 Pulse Oximetry 91 08/06/20 21:34 08/06/20 21:47 08/06/20 22:00 Temperature 37.5 C 37.5 C Pulse Rate 72 72 Respiratory Rate 24 H 23 H Blood Pressure 105/67 Pulse Oximetry 94 08/06/20 22:30 08/06/20 23:25 08/07/20 00:00 Temperature 37.5 C 37.2 C Pulse Rate 71 63 62 Respiratory Rate 23 H 24 H Blood Pressure 93/66 L 98/67 L Pulse Oximetry 95 100 99 08/07/20 01:00 08/07/20 01:39 08/07/20 01:41 Temperature 37.1 C Pulse Rate 62 66 67 Respiratory Rate 24 H 24 H Blood Pressure 103/68 Pulse Oximetry 99 97 08/07/20 01:46 08/07/20 02:00 08/07/20 02:02 Temperature 37.0 C Pulse Rate 68 67 70 Respiratory Rate 24 H 24 H Blood Pressure 101/62 101/62 Pulse Oximetry 98 08/07/20 03:27 08/07/20 03:48 08/07/20 04:00 Temperature 37.3 C Pulse Rate 65 67 67 Respiratory Rate 24 H 24 H 24 H Blood Pressure 106/68 Pulse Oximetry 100 100 08/07/20 04:05 08/07/20 04:06 08/07/20 04:46 Temperature Pulse Rate 67 66 75 Respiratory Rate 24 H 24 H 24 H Blood Pressure Pulse Oximetry 08/07/20 04:48 08/07/20 05:05 08/07/20 05:59 Temperature Pulse Rate 77 71 78 Respiratory Rate 24 H 24 H Blood Pressure 105/68 Pulse Oximetry 99 08/07/20 06:00 08/07/20 08:00 08/07/20 08:35 Temperature 37.3 C 37.3 C Pulse Rate 74 73 72 Respiratory Rate 24 H 24 H 24 H Blood Pressure 92/65 L 91/64 L Pulse Oximetry 99 99 98 08/07/20 08:45 08/07/20 08:46 08/07/20 10:00 Temperature 37.7 C H Pulse Rate 69 78 79 Respiratory Rate 24 H 24 H 24 H Blood Pressure 91/64 L Pulse Oximetry 93 08/07/20 11:40 08/07/20 12:00 08/07/20 13:27 Temperature 38.2 C H 38.4 C H Pulse Rate 68 95 Respiratory Rate 24 H Blood Pressure 85/63 L Pulse Oximetry 98 93 08/07/20 13:28 08/07/20 14:00 08/07/20 14:27 Temperature 38.7 C H 38.8 C H Pulse Rate 95 98 Respiratory Rate 24 H 24 H Blood Pressure 93/59 L Pulse Oximetry 97 08/07/20 14:40 08/07/20 14:50 08/07/20 16:00 Temperature 39.0 C H Pulse Rate 86 86 98 Respiratory Rate 24 H 24 H 24 H Blood Pressure 117/75 Pulse Oximetry 95 99 Intake/Output Intake/Output: Intake & Output 08/04/20 08/05/20 08/06/20 08/07/20 23:59 23:59 23:59 23:59 Intake Total 5188 578 9389 1657 Output Total 1350 1900 1950 550 Balance -20 1100 -200 1107 Meds/Results Medications: Active Medications Generic Name Dose Route Start Last Admin Trade Name Freq PRN Reason Stop Dose Admin Albuterol 2 puff 08/04/20 18:01 Albuterol Sulfate (*Sp) Inhaler INHALATION Q6HRT PRN Shortness Of Breath Or Wheezing Albuterol 5 mg 08/04/20 20:00 08/07/20 14:40 Albuterol Sulfate Neb 2.5 Mg/0.5 Ml Inh INHALATION 5 mg Q6HRT TONE Administration Dexamethasone Sodium Phosphate 6 mg 08/08/20 09:00 Dexamethasone Sod Phos Inj 4 Mg/Ml Vial IV PUSH 08/10/20 09:01 DAILY TONE Dextrose 1
[2020-08-07] MEDS: IBUPROFEN SUSPENSION 200 MG/10 ML UDC 400 MG FEED TUBE (17:43)
[2020-08-07] MEDS: SODIUM CHLORIDE 0.9% IV 500 ML 999 ML IV CONT (17:44)
[2020-08-07 18:19] LABS: Glucose Point of Care 129 (65-105)
--- NOTE | 2020-08-07 20:16 | PM.PNPUL ---
Progress Note: A&P Assessment and Plan (1) Acute respiratory failure with hypoxia: Code(s): J96.01 - Acute respiratory failure with hypoxia Status: Acute Assessment and Plan: - admitted Aug 01 with (+) COVID Nov 11 - intubated Aug 06; severe bilateral infiltrates, poor oxygenation, shock requiring levophed and volume resuscitation managed by Dr Mccullough - Aug 07 prone ventilation - Rx with remdesivir and dexamethasone;has not had the convalescent plasma yet - inflammatory markers have increased; ferritin in increasing; - continue protective ventilator strategy to reduce chance of ptx - continue glycemic control, DVT prophylaxis, GI prophylaxis, maintain normal electrolytes, and start tube feeds (2) COVID-19: Code(s): U07.1 - COVID-19 Status: Acute Assessment and Plan: - diffuse progressive infiltrates and hypoxemia consistent with COVID pneumonia - see above for treatment plans Subjective Date/time seen: 08/07/20 20:16 Migel Estrada is a 50 year old male who was admitted with fever, cough and shortness of breath, loss of smell and taste. He had a negative COVID test a week prior to admission, and a (+) Nov ; Jul 30 went to Urgent Care. He was sent home with a nebulizer and albuterol which he used up to 6 times a day. - Aug 01 admitted with hypoxemia, fever and tachycardia; was treated with remdesivir and dexamethasone; - Aug 06 Aug 06 he was moved to the ICU Room 4, required intubation @ 15:00, and after this his BP dropped. Dr. Mccullough placed a RIJ TLC for Levophed. CXR is worsening with bilateral infiltrates. -Aug 07- prone positioning to improve oxygenation Current vent settings: CMV f=24; TV 450 ml, FiO2 .8; PEEP 15. Current infusions: * fentanyl 150 mcg/hour * versed 3 mg/hour * propofol 15 mcg/kg/minute * norepinephrine 2 mcg/minute-decreased ............................................ PMH: bipolar disorder, pre-diabetes noncompliant with metformin; new diagnosis of hypertension at the time of this admission, hyperlipidemia. Review of Systems Review of Systems: All systems reviewed & are unremarkable except as noted in HPI and below (intubated and sedated) Exam Narrative: Exam Narrative: prone position; Right IJ TLC Const: General: comfortable (sedated and intubated) Eyes: General: appearance normal, both eyes and all related structures Neck: Lymphatic: lymphadenopathy not noted Resp: Auscultation: crackles and diminished lung sounds Cardio: Rate: regular rate Rhythm: regular rhythm Heart sounds: S1 normal heart sound present, S2 normal heart sound present, no murmurs and no rubs Peripheral pulses: other (with hypotension, distal pulses are present however they are weak) GI: Auscultation: Hypoactive bowel sounds present Skin: General skin exam: normal color and no rashes or lesions noted Neuro: General: other (sedated with versed, fentanyl and propofol; not responding to stimuli) Speech: No normal speech Other: sedated, not responsive. Extrem: Other: 1+ edema in lower legs Objective Data Vital Signs Vital Signs: Vital Signs - 24 hr 08/06/20 20:32 08/06/20 21:00 08/06/20 21:25 Temperature Pulse Rate 63 65 69 Respiratory Rate 20 23 H 24 H Blood Pressure 108/70 Pulse Oximetry 98 08/06/20 21:30 08/06/20 21:33 08/06/20 21:34 Temperature Pulse Rate 73 72 72 Respiratory Rate 21 H 24 H 24 H Blood Pressure 104/69 Pulse Oximetry 91 08/06/20 21:47 08/06/20 22:00 08/06/20 22:30 Temperature 37.5 C 37.5 C 37.5 C Pulse Rate 72 71 Respiratory Rate 23 H 23 H Blood Pressure 105/67 93/66 L Pulse Oximetry 94 95 08/06/20 23:25 08/07/20 00:00 08/07/20 01:00 Temperature 37.2 C 37.1 C Pulse Rate 63 62 62 Respiratory Rate 24 H 24 H Blood Pressure 98/67 L 103/68 Pulse Oximetry 100 99 99 08/07/20 01:39 08/07/20 01:41 08/07/20 01:46 Temperature Pulse Rate 66 67 68 Respiratory Rate 24 H 24 H Blood Pressure Pulse Oxime
[2020-08-07] MEDS: lamoTRIgine 100 MG TABLET 200 MG PO (20:57)
[2020-08-07] MEDS: INSULIN DETEMIR 100 UNITS/ML 15 UNITS SUB-Q (20:57)
[2020-08-07] MEDS: NOREPINEPHRINE 8 MG/D5W 250 ML 8 MG/250 ML BAG 3.75 MG IV CONT ×2 (21:16→22:08)
[2020-08-07 21:36] LABS: Glucose Point of Care 156 (65-105)
[2020-08-08] VITALS (50 sets, daily range): BP systolic 78–130; BP diastolic 55–83; PULSE 59–97; RESP 23–25; TEMP 37.6–38.8; O2SAT 92–99
[2020-08-08 00:50] LABS: Glucose Point of Care 157 (65-105)
[2020-08-08] MEDS: FENTANYL 2,500MCG/NS250ML(*CRX 2,500 MCG/250 ML BAG 15 MCG IV CONT ×2 (01:30→17:40)
[2020-08-08] MEDS: ALBUTEROL SULFATE NEB 2.5 MG/0.5 ML INH 5 MG INHALATION ×4 (02:45→19:57)
[2020-08-08 05:55] LABS: Base Excess ABG -0.8 mEq/l (+/-2.0); Oxygen Saturation ABG 94.4 % (95.0-100.0); PCO2 ABG 45.4 mmHg (35.0-45.0); PO2 ABG 74.4 mmHg (80.0-100.0); pH ABG 7.359 (7.350-7.450)
[2020-08-08 05:56] LABS: Alveolar/Arterial O2 Gradient 448.3 mmHg; Carboxyhemoglobin 0.3 % THb (0-2.0); Methemoglobin ABG 0.3 %THb (0-1.5); Oxygen Content ABG 18.9 %vol (16.0-22.0); Oxyhemoglobin 93.3 % THb (90.0-100.0); Total Hemoglobin 14.4 g/dL (12.0-18.0)
[2020-08-08 05:57] LABS: Device VENTILATOR; Fractional Inspired Oxygen 80 %; Modified Allen's Test Pass; PO2 FiO2 Ratio Arterial Blood 0.93 %; Reduced Hemoglobin 6.1 %THb (0-5.0); Site Drawn LEFT RADIAL
[2020-08-08 05:58] LABS: Arterial Blood Gas PEEP 15 cmH2O; Arterial Blood Gas Tidal Volume 450 ml; Arterial Blood Gas Vent Mode ASSIST CONTROL; Arterial Blood Gas Ventilator rate 24 /MIN
[2020-08-08 06:11] LABS: Hemoglobin 13.5 g/dL (14.0-18.0); Mean Corpuscular HGB Conc 32.1 g/dl (32-36); Mean Corpuscular Hemoglobin 29.3 pg (26-34); Mean Corpuscular Volume 91.3 fl (80-100); Mean Platelet Volume 9.9 fl (7.4-10.4); Platelet Count Result 467 k/mm3 (150-375); Red Cell Distribution Width 13.2 % (11.5-14.5); White Blood Count 15.7 K/mm3 (4.5-10.0)
[2020-08-08 06:21] LABS: Alanine Aminotransferase 131 U/L (4-50); Albumin Level 2.7 g/dL (3.5-5.1); Alkaline Phosphatase 274 U/L (38-126); Anion Gap 4 mmol/L (8-16); Aspartate Amino Transferase 130 U/L (17-59); Bilirubin,Total 1.4 mg/dL (0.2-1.3); Blood Urea Nitrogen 43 mg/dL (9-20); Calcium 8.2 mg/dL (8.4-10.2); Carbon Dioxide 32 mmol/L (22-30); Chloride 103 mmol/L (98-107); Estimated CRCL calculation 104 ml/min; Estimated Glomerular Filt Rate > 60; Glucose 138 mg/dL (75-110); Magnesium 2.5 mg/dL (1.6-2.3); Potassium 4.1 mmol/L (3.4-5.0); Sodium 139 mmol/L (137-145)
[2020-08-08] MEDS: CENTRAL LINE FLUSH 10 ML IV PUSH ×4 (06:23→21:51)
[2020-08-08] MEDS: DEXAMETHASONE SOD PHOS INJ 4 MG/ML VIAL 6 MG IV PUSH (08:06)
[2020-08-08] MEDS: VENLAFAXINE HCL XR 75 MG CAP.ER.24H 150 MG PO (08:07)
[2020-08-08] MEDS: PANTOPRAZOLE SODIUM IV 40 MG VIAL IV PUSH (08:07)
[2020-08-08] MEDS: ENOXAPARIN 40 MG/0.4 ML SYRINGE SUB-Q ×2 (08:07→21:49)
[2020-08-08] MEDS: INSULIN DETEMIR 100 UNITS/ML 15 UNITS SUB-Q ×2 (08:25→21:52)
[2020-08-08] MEDS: SODIUM CHLORIDE 0.9% IV 1,000 ML 75 ML IV CONT ×2 (10:54→22:13)
[2020-08-08] MEDS: SODIUM CHLORIDE 0.9% IV 250 ML 30 ML IV CONT (10:58)
[2020-08-08] MEDS: INSULIN ASPART (*BKC) 100 UNITS/ML SUB-Q ×2 (11:15→17:42)
[2020-08-08 11:18] LABS: Glucose Point of Care 207 (65-105)
--- NOTE | 2020-08-08 11:27 | PM.IMPN ---
Progress Note: A&P Assessment and Plan (1) Acute respiratory failure with hypoxia: Code(s): J96.01 - Acute respiratory failure with hypoxia Status: Acute Assessment and Plan: Patient with known COVID diagnosed 07/29. Patient presents with complaints of shortness of breath and found to be hypoxic requiring supplemental oxygen. BNP 254 on admission. CXR today showing diffuse airspace disease without change . Patient became more hypoxic morning 08/06 . No CP to suggest PE or cardiac; no dysphagia to suggest aspiration; no fevers to suggest bacterial PNA; bipap failed 08/06 and intubated on respirator now in ICU (2) Sepsis: Code(s): A41.9 - Sepsis, unspecified organism Status: Acute Assessment and Plan: Patient with sepsis symptoms present on admission with resp failure, lactic acidosis, hypoxia, fever, and tachycardia . Lactic acid level 3.2 but normalized on recheck. [place] all related to COVID. Continue to monitor closely. (3) COVID-19: Code(s): U07.1 - COVID-19 Status: Acute Assessment and Plan: Patient presents with fever, cough and shortness of breath. His COVID test was positive on 07/29/2020. He is hypoxic on presentation. He has been started on dexamethasone D#8 and finished Remdesivir. CXR today showing diffuse airspace disease without change Received plasma last pm but may be to late in course to be beneficial . Continue supportive care. Follow inflammatory markers. (4) Diabetes mellitus: Code(s): E11.9 - Type 2 diabetes mellitus without complications Status: Acute Assessment and Plan: Patient's glucose was elevated on admission to [facility]. Patient has hx of pre-diabetes. A1c 8.5 so now with DM. The patient's blood glucose was reviewed on 08/08 FBS 138 Glucose has been poorly controlled 2nd to the steroids and that he was poorly controlled prior to admission. Continue AccuCheks covering with sliding scale. Hypoglycemia protocol available as needed. Changed to Levemir 15 Q12 to allow for more insulin during the day now that on TF (5) Hypertension: Code(s): I10 - Essential (primary) hypertension Status: Inactive Assessment and Plan: Patient has hypertension listed as a medical problem although he denies. He is not on any medications for this. Blood pressure elevated on admission which again could be stress response but suspect he has underlying HTN. added lisinopril but now on hold. BP reviewed on 08/08 and BP low so lisinopril on hold. Continue to monitor. (6) Bipolar disorder: Code(s): F31.9 - Bipolar disorder, unspecified Status: Inactive Assessment and Plan: Mood is stable. Continue Lamictal and venlafaxine. (7) DVT prophylaxis: Code(s): Z29.9 - Encounter for prophylactic measures, unspecified Status: Acute Assessment and Plan: Lovenox q.12 Subjective Date/time seen: 08/08/20 11:27 Interval history: Date of service 08/08 50yo male with bipolar, pre-DM and recently diagnosed with COVID here for SOB and found to be hypoxic. Oxygen was increased to the point where now he is on 100% with bipap and maintain sats. Intubated and mechanically ventilated 08/06 p.m. Exam Narrative: Exam Narrative: T 38.8 114/72 94 24 95% FIO2 80% and 15 peep Gen - NARD, appears comfortable Chest - no wheeze today , distant BS CV - RRR S1/S2 Abd - soft, NT/ND, +BS Ext - trace pedal edema. Psych and neuro sedated Skin - dry Objective Data Vital Signs Vital Signs: Vital Signs - 24 hr 08/07/20 11:40 08/07/20 12:00 08/07/20 13:27 Temperature 38.2 C H 38.4 C H Pulse Rate 68 95 Respiratory Rate 24 H Blood Pressure 85/63 L Pulse Oximetry 98 93 08/07/20 13:28 08/07/20 14:00 08/07/20 14:27 Temperature 38.7 C H 38.8 C H Pulse Rate 95 98 Respiratory Rate 24 H 24 H Blood Pressure 93/59 L Pulse Oximetry 97 08/07/20 14:40
--- NOTE | 2020-08-08 13:09 | PCDIET ---
Nutrition Follow-Up Complete: Nutrition Diagnosis: Inadequate oral intake related to oral intubation as evidenced by NPO status. Nutrition Goal: Patient to meet estimated nutritional needs. Goal in progress. Patient has tolerated Glucerna 1.2 at 30mL/hr with goal of 40mL/hr per RN. MD order to advance tube feeding goal to 65mL/hr. Last recorded weight is 112.7 kg. Recommend obtaining daily weights. Bowel Motility: Last documented BM on 08/04/20. Labs Reviewed: Hgb (13.5), Glu (138), BUN (43), Alb (2.7), Loren Ca (9.24) Meds Noted: Albuterol, Decadron, Fentanyl, Novolog, Levemir, Versed, Levophed, Protonix, NS at 75mL/hr Additional Notes: No documented skin breakdown. Nutrition Monitoring and Evaluation: Follow up every Tuesday/Tuesday.
--- NOTE | 2020-08-08 13:54 | WPDINTPN ---
Progress Note: A&P Assessment and Plan (1) Acute respiratory failure with hypoxia: Code(s): J96.01 - Acute respiratory failure with hypoxia Status: Acute Assessment and Plan: Acute Respiratory failure secondary to COVID-19 pneumonia COVID test was positive on 07/29/2020, Admitted 08/01 High-flow nasal cannula 08/04 BiPAP 08/05 transferred to ICU and intubated 08/06 Continue mechanical ventilation support to prevent hypoxemia/hypercarbia and end organ damage. patient on low tidal volume ventilation, decreased to 14. FiO2 weaned down to 80%, continue to wean FiO2 ABG and PCXR reviewed and will repeat in am. patient was prone until 3:30 a.m. this morning, repeat chronic today patient did receive Lasix on 08/07/2020 without much improvement on the chest x-ray or FiO2 requirements (2) COVID-19: Code(s): U07.1 - COVID-19 Status: Acute Assessment and Plan: His COVID test was positive on 07/29/2020. Dexamethasone started 08/02 completed course of Remdesivir. convalescent plasma has been ordered, it was on back order, patient received the plasma today (3) Diabetes mellitus: Code(s): E11.9 - Type 2 diabetes mellitus without complications Status: Acute Assessment and Plan: Patient's glucose was elevated on admission to 278. Patient has hx of pre-diabetes. A1c 8.5 so now with DM. continue Levemir and sliding scale will hold metformin at this time (4) Bipolar disorder: Code(s): F31.9 - Bipolar disorder, unspecified Status: Inactive Assessment and Plan: Continue Lamictal and venlafaxine. (5) DVT prophylaxis: Code(s): Z29.9 - Encounter for prophylactic measures, unspecified Status: Acute Assessment and Plan: Lovenox q.12 (6) Electrolyte abnormality: Code(s): E87.8 - Other disorders of electrolyte and fluid balance, not elsewhere classified Status: Acute Assessment and Plan: resolved (7) Hypotension: Code(s): I95.9 - Hypotension, unspecified Status: Acute Assessment and Plan: likely secondary for sedation continue low-dose Levophed Additional Plan Code Status - Full Code Total Critical Care Time - 33 minutes Due to a high probability of clinically significant, life threatening deterioration, the patient required my highest level of preparedness to intervene emergently and I personally spent this critical care time directly and personally managing the patient. This critical care time included obtaining a history; examining the patient; pulse oximetry; ordering and review of studies; arranging urgent treatment with development of a management plan; evaluation of patient's response to treatment; frequent reassessment; and discussions with other providers. It was exclusive of separately billable procedures and treating other patients and teaching time. Please see Assessment and Plan section and the rest of the note for further information on patient assessment and treatment Subjective Date/time seen: 08/08/20 13:54 Interval history: 50yo male with bipolar, pre-DM and recently diagnosed with COVID here for SOB and found to be hypoxic. 08/08/2020: Patient seen and examined this morning, remains intubated on CMV mode of ventilation, 15 of PEEP an 80% FiO2. Patient was prone until 3:30 a.m. this morning, And tolerated. Patient is sedated with fentanyl, Versed and propofol. Patient also on Levophed 1 mcg/minute. Patient on tube feeds and tolerating output has been adequate. Patient has been febrile with a T-max of 102.4? Review of Systems Review of Systems: ROS unobtainable: Yes unobtainable due to endotracheal tube and unobtainable due to medical condition Exam Const: General: comfortable and no acute distress HENMT: Other: ETT in place Eyes: Sclera: sclerae normal Pupils: Equal, round and reactive pupils present Neck: Neck: supple Res
[2020-08-08 18:06] LABS: Glucose Point of Care 217 (65-105)
[2020-08-08] MEDS: lamoTRIgine 100 MG TABLET 200 MG PO (21:48)
[2020-08-08 23:25] LABS: Glucose Point of Care 217 (65-105)
[2020-08-09] VITALS (49 sets, daily range): BP systolic 87–127; BP diastolic 59–84; PULSE 76–116; RESP 16–27; TEMP 37.6–39.6; O2SAT 91–100
[2020-08-09 02:04] LABS: Glucose Point of Care 192 (65-105)
[2020-08-09] MEDS: ALBUTEROL SULFATE NEB 2.5 MG/0.5 ML INH 5 MG INHALATION ×4 (02:46→20:50)
[2020-08-09 04:30] LABS: Alveolar/Arterial O2 Gradient 437.2 mmHg; Base Excess ABG 0.9 mEq/l (+/-2.0); Carboxyhemoglobin 0.3 % THb (0-2.0); Device VENTILATOR; Fractional Inspired Oxygen 80 %; HCO3 ABG 28.2 mEq/l (22.0-26.0); Methemoglobin ABG 0.3 %THb (0-1.5); Modified Allen's Test Unable to perform; Oxygen Content ABG 19.8 %vol (16.0-22.0); Oxygen Saturation ABG 93.8 % (95.0-100.0); Oxyhemoglobin 93.1 % THb (90.0-100.0); PCO2 ABG 55.5 mmHg (35.0-45.0); PO2 ABG 74.9 mmHg (80.0-100.0); PO2 FiO2 Ratio Arterial Blood 0.94 %; Reduced Hemoglobin 6.3 %THb (0-5.0); Site Drawn RIGHT RADIAL; Total Hemoglobin 15.1 g/dL (12.0-18.0); pH ABG 7.324 (7.350-7.450)
[2020-08-09 04:31] LABS: Arterial Blood Gas PEEP 14 cmH2O; Arterial Blood Gas Tidal Volume 450 ml; Arterial Blood Gas Vent Mode ASSIST CONTROL; Arterial Blood Gas Ventilator rate 24 /MIN
[2020-08-09] MEDS: CENTRAL LINE FLUSH 10 ML IV PUSH ×3 (05:50→20:32)
[2020-08-09 06:20] LABS: Hematocrit 39.6 % (42.0-52.0); Hemoglobin 12.7 g/dL (14.0-18.0); Mean Corpuscular HGB Conc 32.1 g/dl (32-36); Mean Corpuscular Hemoglobin 29.8 pg (26-34); Mean Platelet Volume 9.8 fl (7.4-10.4); Platelet Count Result 384 k/mm3 (150-375); Red Blood Count 4.26 M/mm3 (4.6-6.20); Red Cell Distribution Width 13.5 % (11.5-14.5); White Blood Count 16.9 K/mm3 (4.5-10.0)
[2020-08-09 06:29] LABS: Alanine Aminotransferase 131 U/L (4-50); Albumin Level 2.6 g/dL (3.5-5.1); Alkaline Phosphatase 270 U/L (38-126); Anion Gap 4 mmol/L (8-16); Aspartate Amino Transferase 99 U/L (17-59); Blood Urea Nitrogen 37 mg/dL (9-20); Calcium 8.1 mg/dL (8.4-10.2); Carbon Dioxide 32 mmol/L (22-30); Chloride 104 mmol/L (98-107); Estimated CRCL calculation 131 ml/min; Estimated Glomerular Filt Rate > 60; Glucose 164 mg/dL (75-110); Magnesium 2.5 mg/dL (1.6-2.3); Potassium 4.5 mmol/L (3.4-5.0); Sodium 140 mmol/L (137-145)
[2020-08-09 06:30] LABS: Glucose Point of Care 158 (65-105)
[2020-08-09] MEDS: INSULIN DETEMIR 100 UNITS/ML 15 UNITS SUB-Q ×2 (08:37→20:23)
[2020-08-09] MEDS: FUROSEMIDE INJ 40 MG/4 ML VIAL IV PUSH (08:37)
[2020-08-09] MEDS: PANTOPRAZOLE SODIUM IV 40 MG VIAL IV PUSH (08:38)
[2020-08-09] MEDS: DEXAMETHASONE SOD PHOS INJ 4 MG/ML VIAL 6 MG IV PUSH (08:38)
[2020-08-09] MEDS: ENOXAPARIN 40 MG/0.4 ML SYRINGE SUB-Q ×2 (08:38→20:29)
[2020-08-09] MEDS: VENLAFAXINE HCL XR 75 MG CAP.ER.24H 150 MG PO (08:39)
[2020-08-09] MEDS: FENTANYL 2,500MCG/NS250ML(*CRX 2,500 MCG/250 ML BAG 15 MCG IV CONT (09:26)
[2020-08-09] MEDS: INSULIN ASPART (*BKC) 100 UNITS/ML SUB-Q ×2 (11:42→17:24)
[2020-08-09] MEDS: SODIUM CHLORIDE 0.9% IV 1,000 ML 75 ML IV CONT (11:43)
[2020-08-09 12:24] LABS: Glucose Point of Care 251 (65-105)
--- NOTE | 2020-08-09 13:19 | WPDINTPN ---
Progress Note: A&P Assessment and Plan (1) Acute respiratory failure with hypoxia: Code(s): J96.01 - Acute respiratory failure with hypoxia Status: Acute Assessment and Plan: Acute Respiratory failure secondary to COVID-19 pneumonia COVID test was positive on 07/29/2020, Admitted 08/01 High-flow nasal cannula 08/04 BiPAP 08/05 transferred to ICU and intubated 08/06 Continue mechanical ventilation support to prevent hypoxemia/hypercarbia and end organ damage. patient on low tidal volume ventilation, decreased to 13. Will continue to wean down FiO2 maintain O2 sats greater than 92% ABG and PCXR reviewed Patient with positive fluid status, will give Lasix today (2) COVID-19: Code(s): U07.1 - COVID-19 Status: Acute Assessment and Plan: His COVID test was positive on 07/29/2020. Dexamethasone started 08/02 completed course of Remdesivir. Patient received convalescent plasma 08/08/2020 (3) Diabetes mellitus: Code(s): E11.9 - Type 2 diabetes mellitus without complications Status: Acute Assessment and Plan: Patient's glucose was elevated on admission to 278. Patient has hx of pre-diabetes. A1c 8.5 so now with DM. continue Levemir and sliding scale will hold metformin at this time (4) Bipolar disorder: Code(s): F31.9 - Bipolar disorder, unspecified Status: Inactive Assessment and Plan: Continue Lamictal and venlafaxine. (5) DVT prophylaxis: Code(s): Z29.9 - Encounter for prophylactic measures, unspecified Status: Acute Assessment and Plan: Lovenox q.12 (6) Electrolyte abnormality: Code(s): E87.8 - Other disorders of electrolyte and fluid balance, not elsewhere classified Status: Acute Assessment and Plan: resolved (7) Hypotension: Code(s): I95.9 - Hypotension, unspecified Status: Acute Assessment and Plan: likely secondary for sedation Levophed being weaned -will discontinue IV fluids Additional Plan Code Status - Full Code Total Critical Care Time - 33 minutes Due to a high probability of clinically significant, life threatening deterioration, the patient required my highest level of preparedness to intervene emergently and I personally spent this critical care time directly and personally managing the patient. This critical care time included obtaining a history; examining the patient; pulse oximetry; ordering and review of studies; arranging urgent treatment with development of a management plan; evaluation of patient's response to treatment; frequent reassessment; and discussions with other providers. It was exclusive of separately billable procedures and treating other patients and teaching time. Please see Assessment and Plan section and the rest of the note for further information on patient assessment and treatment Subjective Date/time seen: 08/09/20 13:19 Interval history: 50yo male with bipolar, pre-DM and recently diagnosed with COVID here for SOB and found to be hypoxic. 08/09/2020: Patient remains intubated on CMV mode of ventilation. Peep of 14, 80% FiO2. Patient on fentanyl, Versed, propofol infusion for sedation. Patient has been febrile overnight, with a T-max of 103.3?, urine output has been adequate. Remains on Levophed at 2 mcg/min. LFTs trending down. Patient has been tolerating tube feeds. Does not open his eyes or follow simple commands Review of Systems Review of Systems: ROS unobtainable: Yes unobtainable due to endotracheal tube and unobtainable due to medical condition Exam Const: General: comfortable and no acute distress HENMT: Other: ETT in place Eyes: Sclera: sclerae normal Pupils: Equal, round and reactive pupils present Neck: Neck: supple Resp: Effort & Inspection: normal respiratory effort Auscultation: rales and diminished lung sounds Other: coarse breath sounds bilateral Cardio: Rate: regular
--- NOTE | 2020-08-09 16:07 | PM.IMPN ---
Progress Note: A&P Assessment and Plan (1) Acute respiratory failure with hypoxia: Code(s): J96.01 - Acute respiratory failure with hypoxia Status: Acute Assessment and Plan: Patient with known COVID diagnosed 07/29. Patient presents with complaints of shortness of breath and found to be hypoxic requiring supplemental oxygen. BNP 254 on admission. CXR today showing diffuse airspace disease without change . Patient became more hypoxic morning 08/06 . No CP to suggest PE or cardiac; no dysphagia to suggest aspiration; no fevers to suggest bacterial PNA; bipap failed 08/06 and intubated on respirator now in ICU (2) Sepsis: Code(s): A41.9 - Sepsis, unspecified organism Status: Acute Assessment and Plan: Patient with sepsis symptoms present on admission with resp failure, lactic acidosis, hypoxia, fever, and tachycardia . Lactic acid level 3.2 but normalized on recheck. [place] all related to COVID. Continue to monitor closely. (3) COVID-19: Code(s): U07.1 - COVID-19 Status: Acute Assessment and Plan: Patient presents with fever, cough and shortness of breath. His COVID test was positive on 07/29/2020. He is hypoxic on presentation. He has been started on dexamethasone D#9 and finished Remdesivir. CXR today showing diffuse airspace disease without change Received plasma last 08/07 pm but may be to late in course to be beneficial . Continue supportive care. Follow inflammatory markers. (4) Diabetes mellitus: Code(s): E11.9 - Type 2 diabetes mellitus without complications Status: Acute Assessment and Plan: Patient's glucose was elevated on admission to [facility]. Patient has hx of pre-diabetes. A1c 8.5 so now with DM. The patient's blood glucose was reviewed on 08/09 FBS 164 Glucose has been poorly controlled 2nd to the steroids and that he was poorly controlled prior to admission. Continue AccuCheks covering with sliding scale. Hypoglycemia protocol available as needed. Changed to Levemir 15 Q12 to allow for more insulin during the day now that on TF (5) Hypertension: Code(s): I10 - Essential (primary) hypertension Status: Inactive Assessment and Plan: Patient has hypertension listed as a medical problem although he denies. He is not on any medications for this. Blood pressure elevated on admission which again could be stress response but suspect he has underlying HTN. added lisinopril but now on hold. BP reviewed on 08/09 and BP low so low dose levophed used to increase MAP. Continue to monitor. (6) Bipolar disorder: Code(s): F31.9 - Bipolar disorder, unspecified Status: Inactive Assessment and Plan: sedated (7) DVT prophylaxis: Code(s): Z29.9 - Encounter for prophylactic measures, unspecified Status: Acute Assessment and Plan: Lovenox q.12 Subjective Date/time seen: 08/09/20 16:07 Interval history: Date of service 08/09 50yo male with bipolar, pre-DM and recently diagnosed with COVID here for SOB and found to be hypoxic. Oxygen was increased to the point where he was on 100% with bipap to maintain sats. Intubated and mechanically ventilated 08/06 p.m. Exam Narrative: Exam Narrative: T 38.1 90/60 98 24 94 % FIO2 75% and 15 peep Gen - NARD, appears comfortable Chest - no wheeze today , distant BS CV - RRR S1/S2 Abd - soft, NT/ND, +BS Ext - trace pedal edema. Psych and neuro sedated Skin - dry Objective Data Vital Signs Vital Signs: Vital Signs - 24 hr 08/08/20 17:29 08/08/20 17:40 08/08/20 17:43 Temperature Pulse Rate 59 L 59 L 64 Respiratory Rate 24 H 24 H 24 H Blood Pressure Pulse Oximetry 08/08/20 17:44 08/08/20 17:45 08/08/20 18:00 Temperature 37.6 C H Pulse Rate 64 64 72 Respiratory Rate 24 H Blood Pressure 106/69 106/69 97/59 L Pulse Oximetry 94 08/08/20 19:10 08/08/20 20:00 08/08/20 20:01 T
[2020-08-09 17:59] LABS: Glucose Point of Care 249 (65-105)
[2020-08-09] MEDS: lamoTRIgine 100 MG TABLET 200 MG PO (20:54)
[2020-08-10] VITALS (35 sets, daily range): BP systolic 101–170; BP diastolic 64–81; PULSE 85–128; RESP 24–30; TEMP 37.9–38.9; O2SAT 85–97
[2020-08-10 00:21] LABS: Glucose Point of Care 204 (65-105)
[2020-08-10] MEDS: INSULIN ASPART (*BKC) 100 UNITS/ML SUB-Q ×3 (01:16→17:29)
[2020-08-10] MEDS: ROCURONIUM BROMIDE 50 MG/5 ML VIAL 100 MG (02:44)
[2020-08-10] MEDS: ALBUTEROL SULFATE NEB 2.5 MG/0.5 ML INH 5 MG INHALATION ×4 (02:45→22:04)
--- NOTE | 2020-08-10 02:46 | PC.NURSE ---
at 0115 Dr Mccullough was called due to patient saturations quickly dropping to the 50's and being unable to suction through ET tube, concern thast ET tube may need to be replaced. Pt has been having thick, simon, tenacious secretions. Pt bagged and oxygen improved to 93% but will not maintain. Zulma RT rescue cathed ET tube several times with large amounts of mucous produced. Decision made to switch out ET. Pt sedated with rocuranium 65 mg then an additional 20mg given.
[2020-08-10 02:47] LABS: Mean Corpuscular HGB Conc 31.7 g/dl (32-36); Mean Corpuscular Volume 94.5 fl (80-100); Mean Platelet Volume 9.9 fl (7.4-10.4); Platelet Count Result 364 k/mm3 (150-375); Red Blood Count 4.34 M/mm3 (4.6-6.20); Red Cell Distribution Width 13.7 % (11.5-14.5); White Blood Count 18.6 K/mm3 (4.5-10.0)
[2020-08-10 03:09] LABS: Alanine Aminotransferase 145 U/L (4-50); Albumin Level 2.8 g/dL (3.5-5.1); Alkaline Phosphatase 301 U/L (38-126); Anion Gap 6 mmol/L (8-16); Aspartate Amino Transferase 145 U/L (17-59); Bilirubin,Total 1.1 mg/dL (0.2-1.3); Blood Urea Nitrogen 40 mg/dL (9-20); Calcium 8.7 mg/dL (8.4-10.2); Carbon Dioxide 35 mmol/L (22-30); Chloride 104 mmol/L (98-107); Estimated CRCL calculation 131 ml/min; Estimated Glomerular Filt Rate > 60; Glucose 186 mg/dL (75-110); Magnesium 2.6 mg/dL (1.6-2.3); Potassium 4.8 mmol/L (3.4-5.0); Sodium 145 mmol/L (137-145)
--- NOTE | 2020-08-10 04:10 | WPDPROCEDUR ---
Procedures Intubation Intubation Date: 08/10/20 Intubation Time: 02:00 A pre-procedural Time-Out was completed immediately before starting the procedure and confirmed: Patient Identification, Site, Procedure, Patient Position and the Availability of Requisite Equipment: Yes Paralytic: rocuronium Mg given: 65 Laryngoscope: fiber optic video scope Assist device used: Bougie ET tube size: 8 Tube secured depth (cm): 25 Tube secured location: lips Tube placement confirmation: visualized tube passing through cords, equal breath sounds bilaterally, no breath sounds over epigastrium and confirmation by capnometry Patient tolerated procedure: well and no complications Intubation complications: none Additional comments: Date of service was 08/10/2020 at 02:00 hrs.
[2020-08-10 04:17] LABS: Alveolar/Arterial O2 Gradient 566.5 mmHg; Base Excess ABG 3.5 mEq/l (+/-2.0); Carboxyhemoglobin 0.3 % THb (0-2.0); Fractional Inspired Oxygen 100 %; HCO3 ABG 29.6 mEq/l (22.0-26.0); Methemoglobin ABG 0.3 %THb (0-1.5); Oxygen Content ABG 18.2 %vol (16.0-22.0); Oxygen Saturation ABG 97.1 % (95.0-100.0); Oxyhemoglobin 96.3 % THb (90.0-100.0); PCO2 ABG 51.1 mmHg (35.0-45.0); PO2 ABG 95.4 mmHg (80.0-100.0); PO2 FiO2 Ratio Arterial Blood 0.95 %; Reduced Hemoglobin 3.1 %THb (0-5.0); Total Hemoglobin 13.4 g/dL (12.0-18.0); pH ABG 7.381 (7.350-7.450)
[2020-08-10 04:18] LABS: Device VENTILATOR; Modified Allen's Test Unable to perform; Site Drawn RIGHT RADIAL
[2020-08-10 04:19] LABS: Arterial Blood Gas PEEP 14 cmH2O; Arterial Blood Gas Tidal Volume 450 ml; Arterial Blood Gas Vent Mode CMV; Arterial Blood Gas Ventilator rate 24 /MIN
[2020-08-10] MEDS: FENTANYL 2,500MCG/NS250ML(*CRX 2,500 MCG/250 ML BAG 15 MCG IV CONT (05:21)
[2020-08-10] MEDS: CENTRAL LINE FLUSH 10 ML IV PUSH ×2 (05:23→21:20)
[2020-08-10 06:01] LABS: Glucose Point of Care 218 (65-105)
[2020-08-10 06:01] LABS: Glucose Point of Care 187 (65-105)
[2020-08-10] MEDS: FUROSEMIDE INJ 40 MG/4 ML VIAL IV PUSH (08:48)
[2020-08-10] MEDS: PANTOPRAZOLE SODIUM IV 40 MG VIAL IV PUSH (08:48)
[2020-08-10] MEDS: INSULIN DETEMIR 100 UNITS/ML 15 UNITS SUB-Q ×2 (08:49→20:58)
[2020-08-10] MEDS: DEXAMETHASONE SOD PHOS INJ 4 MG/ML VIAL 6 MG IV PUSH (08:49)
[2020-08-10] MEDS: ENOXAPARIN 40 MG/0.4 ML SYRINGE SUB-Q ×2 (08:49→20:58)
[2020-08-10] MEDS: VENLAFAXINE HCL XR 75 MG CAP.ER.24H 150 MG PO (08:49)
[2020-08-10] MEDS: DORNASE ALFA INH SOLN 1 MG/ML 2.5 ML AMP 2.5 MG INHALATION ×2 (09:58→22:03)
[2020-08-10 12:38] LABS: Glucose Point of Care 221 (65-105)
--- NOTE | 2020-08-10 13:03 | WPDINTPN ---
Progress Note: A&P Assessment and Plan (1) Acute respiratory failure with hypoxia: Code(s): J96.01 - Acute respiratory failure with hypoxia Status: Acute Assessment and Plan: Acute Respiratory failure secondary to COVID-19 pneumonia COVID test was positive on 07/29/2020, Admitted 08/01 High-flow nasal cannula 08/04 BiPAP 08/05 transferred to ICU and intubated 08/06 Continue mechanical ventilation support to prevent hypoxemia/hypercarbia and end organ damage. patient on low tidal volume ventilation, on peep of 13, will wean FiO2 to maintain O2 sats greater than 92% ABG and PCXR reviewed Patient responded well to Lasix yesterday, will diurese again today (2) COVID-19: Code(s): U07.1 - COVID-19 Status: Acute Assessment and Plan: His COVID test was positive on 07/29/2020. Dexamethasone started 08/02 completed course of Remdesivir. Patient received convalescent plasma 08/08/2020 (3) Diabetes mellitus: Code(s): E11.9 - Type 2 diabetes mellitus without complications Status: Acute Assessment and Plan: Patient's glucose was elevated on admission to 278. Patient has hx of pre-diabetes. A1c 8.5 so now with DM. continue Levemir and sliding scale will hold metformin at this time (4) Bipolar disorder: Code(s): F31.9 - Bipolar disorder, unspecified Status: Inactive Assessment and Plan: Continue Lamictal and venlafaxine. (5) DVT prophylaxis: Code(s): Z29.9 - Encounter for prophylactic measures, unspecified Status: Acute Assessment and Plan: Lovenox q.12H (6) Electrolyte abnormality: Code(s): E87.8 - Other disorders of electrolyte and fluid balance, not elsewhere classified Status: Acute Assessment and Plan: resolved (7) Hypotension: Code(s): I95.9 - Hypotension, unspecified Status: Acute Assessment and Plan: likely secondary for sedation Levophed OFF Additional Plan Code Status - Full Code Total Critical Care Time - 32 minutes Due to a high probability of clinically significant, life threatening deterioration, the patient required my highest level of preparedness to intervene emergently and I personally spent this critical care time directly and personally managing the patient. This critical care time included obtaining a history; examining the patient; pulse oximetry; ordering and review of studies; arranging urgent treatment with development of a management plan; evaluation of patient's response to treatment; frequent reassessment; and discussions with other providers. It was exclusive of separately billable procedures and treating other patients and teaching time. Please see Assessment and Plan section and the rest of the note for further information on patient assessment and treatment Subjective Date/time seen: 08/10/20 13:03 Interval history: 50yo male with bipolar, pre-DM and recently diagnosed with COVID here for SOB and found to be hypoxic. 08/10/2020: Patient remains intubated on CMV mode of ventilation, peep of 14 and 90% FiO2. Remains febrile T-max of 102.0?. Propofol will fentanyl and Versed infusion sedation. Patient OFF LEVOPHED infusion. Review of Systems Review of Systems: ROS unobtainable: Yes unobtainable due to endotracheal tube and unobtainable due to medical condition Exam Narrative: Exam Narrative: Const: General: comfortable and no acute distress HENMT: Other: ETT in place Eyes: Sclera: sclerae normal Pupils: Equal, round and reactive pupils present Neck: Neck: supple Resp: Effort & Inspection: normal respiratory effort Auscultation: rales and diminished lung sounds Other: coarse breath sounds bilateral Cardio: Rate: regular rate Rhythm: regular rhythm GI: Inspection: non-distended GI Palp: Yes Soft to palpation and No Tenderness to palpation present (GI) Auscultation: abnormal bowel sounds ( hypoactive shayy
--- NOTE | 2020-08-10 16:42 | PM.IMPN ---
Progress Note: A&P Assessment and Plan (1) Acute respiratory failure with hypoxia: Code(s): J96.01 - Acute respiratory failure with hypoxia Status: Acute Assessment and Plan: Patient with known COVID diagnosed 07/29. Patient presents with complaints of shortness of breath and found to be hypoxic requiring supplemental oxygen. BNP 254 on admission. CXR today showing diffuse airspace disease without change . Patient became more hypoxic morning 08/06 . No CP to suggest PE or cardiac; no dysphagia to suggest aspiration; no fevers to suggest bacterial PNA; bipap failed 08/06 and intubated on respirator now in ICU (2) Sepsis: Code(s): A41.9 - Sepsis, unspecified organism Status: Acute Assessment and Plan: Patient with sepsis symptoms present on admission with resp failure, lactic acidosis, hypoxia, fever, and tachycardia . Lactic acid level 3.2 but normalized on recheck. [place] all related to COVID. Continue to monitor closely. Intermittant pressors to maintain MAP (3) COVID-19: Code(s): U07.1 - COVID-19 Status: Acute Assessment and Plan: Patient presents with fever, cough and shortness of breath. His COVID test was positive on 07/29/2020. He is hypoxic on presentation. He has been started on dexamethasone D#10 and finished Remdesivir. CXR today showing diffuse airspace disease without change Received plasma last 08/07 pm but may be to late in course to be beneficial . Continue supportive care. Follow inflammatory markers. (4) Diabetes mellitus: Code(s): E11.9 - Type 2 diabetes mellitus without complications Status: Acute Assessment and Plan: Patient's glucose was elevated on admission to 278. Patient has hx of pre-diabetes. A1c 8.5 so now with DM. The patient's blood glucose was reviewed on 08/10 FBS 186 Glucose has been poorly controlled 2nd to the steroids and that he was poorly controlled prior to admission. Continue AccuCheks covering with sliding scale. Hypoglycemia protocol available as needed. Changed to Levemir 15 Q12 to allow for more insulin during the day now that on TF (5) Hypertension: Code(s): I10 - Essential (primary) hypertension Status: Inactive Assessment and Plan: Patient has hypertension listed as a medical problem although he denies. He is not on any medications for this. Blood pressure elevated on admission which again could be stress response but suspect he has underlying HTN. added lisinopril but now on hold. BP reviewed on 08/10 and BP low but off levophed. Continue to monitor. (6) Bipolar disorder: Code(s): F31.9 - Bipolar disorder, unspecified Status: Inactive Assessment and Plan: sedated (7) DVT prophylaxis: Code(s): Z29.9 - Encounter for prophylactic measures, unspecified Status: Acute Assessment and Plan: Lovenox q.12 Subjective Date/time seen: 08/10/20 16:42 Interval history: Date of service 08/10 50yo male with bipolar, pre-DM and recently diagnosed with COVID here for SOB and found to be hypoxic. Oxygen was increased to the point where he was on 100% with bipap to maintain sats. Intubated and mechanically ventilated 08/06 p.m. Exam Narrative: Exam Narrative: T 38.1 102/65(low dose pressors) 98 24 92 % FIO2 90% and 13 peep Gen - NARD, appears comfortable Mouth ET tube and OG secured Chest - no wheeze today , distant BS CV - RRR S1/S2 Abd - soft, NT/ND, +BS Ext - trace pedal edema. Psych and neuro sedated Skin - dry Objective Data Vital Signs Vital Signs: Vital Signs - 24 hr 08/09/20 17:25 08/09/20 17:26 08/09/20 17:27 Temperature Pulse Rate 91 91 91 Respiratory Rate 19 22 H Blood Pressure 103/61 Pulse Oximetry 08/09/20 18:00 08/09/20 20:00 08/09/20 20:24 Temperature 37.8 C H 38.0 C H 38.0 C H Pulse Rate 90 95 Respiratory Rate 20 24 H Blood Pressure 105/69 109/71 Puls
[2020-08-10 17:43] LABS: Glucose Point of Care 211 (65-105)
--- NOTE | 2020-08-10 19:04 | PM.PNPUL ---
Progress Note: A&P Assessment and Plan (1) Acute respiratory failure with hypoxia: Code(s): J96.01 - Acute respiratory failure with hypoxia Status: Acute Assessment and Plan: - admitted Aug 01 with (+) COVID Jul 11 - intubated Aug 06; severe bilateral infiltrates, poor oxygenation, shock requiring levophed and volume resuscitation managed by Dr Mccullough - Aug 07 prone ventilation - Rx with remdesivir and dexamethasone; - inflammatory markers have increased; ferritin remains in the 1470 zone, last checked Aug 06 - continue protective ventilator strategy to reduce chance of ptx - continue glycemic control, DVT prophylaxis, GI prophylaxis, maintain normal electrolytes, and start tube feeds (2) COVID-19: Code(s): U07.1 - COVID-19 Status: Acute Assessment and Plan: - diffuse progressive infiltrates and hypoxemia consistent with COVID pneumonia - see above for treatment plans Subjective Date/time seen: 08/10/20 19:04 Migel Estrada is a 50 year old male who was admitted with fever, cough and shortness of breath, loss of smell and taste. Today is a stable day. Off Levophed, getting proned 12 hours at a time. Still on high FiO2 0.9 w 14 PEEP. CXR is stable with diffuse infiltrates. He had a negative COVID test a week prior to admission, and (+) Jul 29; - Jul 30 went to Urgent Care; He was sent home with a nebulizer and albuterol which he used up to 6 times a day. - Aug 01 admitted with hypoxemia, fever and tachycardia; was treated with remdesivir and dexamethasone; - Aug 06 Aug 06 moved to the ICU Room 4, required intubation @ 15:00, and after this his BP dropped. RIJ TLC for Levophed. CXR is worsening with bilateral infiltrates. ferritin 1470; staying in that zone - Aug 07- prone positioning to improve oxygenation Current vent settings: CMV f=24; TV 450 ml, FiO2 0.9; PEEP 14. Current infusions: * fentanyl 150 mcg/hour * versed 3 mg/hour * OFF propofol and norepinephrine ............................................ PMH: bipolar disorder, pre-diabetes noncompliant with metformin; new diagnosis of hypertension at the time of this admission, hyperlipidemia. Review of Systems Review of Systems: All systems reviewed & are unremarkable except as noted in HPI and below (intubated and sedated) ROS unobtainable: Yes unobtainable due to endotracheal tube Exam Narrative: Exam Narrative: prone position; Right IJ TLC Const: General: comfortable (sedated and intubated) Eyes: General: appearance normal, both eyes and all related structures Neck: Lymphatic: lymphadenopathy not noted Resp: Auscultation: crackles and diminished lung sounds Cardio: Rate: regular rate Rhythm: regular rhythm Heart sounds: S1 normal heart sound present, S2 normal heart sound present, no murmurs and no rubs Peripheral pulses: other (with hypotension, distal pulses are present however they are weak) GI: Auscultation: Hypoactive bowel sounds present Skin: General skin exam: normal color and no rashes or lesions noted Neuro: General: other (sedated with versed, fentanyl; not responding to stimuli) Speech: No normal speech Other: sedated, not responsive. Extrem: Other: 1+ edema in lower legs Objective Data Vital Signs Vital Signs: Vital Signs - 24 hr 08/09/20 20:00 08/09/20 20:24 08/09/20 20:51 Temperature 38.0 C H 38.0 C H Pulse Rate 95 89 Respiratory Rate 24 H 25 H Blood Pressure 109/71 Pulse Oximetry 93 95 08/09/20 20:54 08/09/20 21:00 08/09/20 21:25 Temperature 38.1 C H Pulse Rate 97 103 H Respiratory Rate 24 H 22 H Blood Pressure Pulse Oximetry 08/09/20 22:00 08/09/20 22:54 08/10/20 00:00 Temperature 37.6 C H Pulse Rate 100 101 H 102 H Respiratory Rate 24 H Blood Pressure 95/66 L Pulse Oximetry 93 94 08/10/20 01:00 08/10/20 01:15 08/10/20 01:30 Temperature 37.9 C H Pulse Rate 102 H 103 H 108 H Respiratory Rate 24 H 24 H 24 H Blood Pressure 11
[2020-08-10] MEDS: lamoTRIgine 100 MG TABLET 200 MG PO (20:59)
[2020-08-11] VITALS (39 sets, daily range): BP systolic 112–133; BP diastolic 74–96; PULSE 93–122; RESP 20–29; TEMP 38.2–39.4; O2SAT 91–97
[2020-08-11 00:26] LABS: Glucose Point of Care 156 (65-105)
[2020-08-11] MEDS: ALBUTEROL SULFATE NEB 2.5 MG/0.5 ML INH 5 MG INHALATION ×4 (02:26→22:05)
[2020-08-11] MEDS: FENTANYL 2,500MCG/NS250ML(*CRX 2,500 MCG/250 ML BAG 12.5 MCG IV CONT (03:08)
[2020-08-11 04:47] LABS: Hematocrit 38.2 % (42.0-52.0); Hemoglobin 12.2 g/dL (14.0-18.0); Mean Corpuscular HGB Conc 31.9 g/dl (32-36); Mean Corpuscular Hemoglobin 29.7 pg (26-34); Mean Corpuscular Volume 92.9 fl (80-100); Mean Platelet Volume 10.3 fl (7.4-10.4); Platelet Count Result 357 k/mm3 (150-375); Red Blood Count 4.11 M/mm3 (4.6-6.20); Red Cell Distribution Width 13.7 % (11.5-14.5); White Blood Count 15.9 K/mm3 (4.5-10.0)
[2020-08-11 05:01] LABS: Alveolar/Arterial O2 Gradient 503.9 mmHg; Base Excess ABG 9.2 mEq/l (+/-2.0); Carboxyhemoglobin 0.3 % THb (0-2.0); Fractional Inspired Oxygen 90 %; HCO3 ABG 34.8 mEq/l (22.0-26.0); Methemoglobin ABG 0.3 %THb (0-1.5); Oxygen Content ABG 17.8 %vol (16.0-22.0); Oxygen Saturation ABG 96.6 % (95.0-100.0); Oxyhemoglobin 95.5 % THb (90.0-100.0); PCO2 ABG 51.7 mmHg (35.0-45.0); PO2 ABG 84.8 mmHg (80.0-100.0); PO2 FiO2 Ratio Arterial Blood 0.94 %; Reduced Hemoglobin 3.9 %THb (0-5.0); Total Hemoglobin 13.2 g/dL (12.0-18.0); pH ABG 7.446 (7.350-7.450)
[2020-08-11 05:01] LABS: Alanine Aminotransferase 148 U/L (4-50); Albumin Level 2.7 g/dL (3.5-5.1); Alkaline Phosphatase 284 U/L (38-126); Anion Gap 2 mmol/L (8-16); Aspartate Amino Transferase 145 U/L (17-59); Bilirubin,Total 1.4 mg/dL (0.2-1.3); Blood Urea Nitrogen 45 mg/dL (9-20); Calcium 8.5 mg/dL (8.4-10.2); Carbon Dioxide 39 mmol/L (22-30); Chloride 103 mmol/L (98-107); Estimated CRCL calculation 116 ml/min; Estimated Glomerular Filt Rate > 60; Glucose 163 mg/dL (75-110); Magnesium 2.4 mg/dL (1.6-2.3); Potassium 4.6 mmol/L (3.4-5.0); Sodium 144 mmol/L (137-145)
[2020-08-11 05:03] LABS: Arterial Blood Gas Vent Mode CMV; Arterial Blood Gas Ventilator rate 24 /MIN; Device VENTILATOR; Modified Allen's Test Pass; Site Drawn RIGHT RADIAL
[2020-08-11 05:04] LABS: Arterial Blood Gas PEEP 13 cmH2O; Arterial Blood Gas Tidal Volume 450 ml
[2020-08-11] MEDS: ACETAMINOPHEN ELIXIR 325 MG/10.15 ML UDC 650 MG PO ×3 (05:41→17:12)
[2020-08-11] MEDS: CENTRAL LINE FLUSH 10 ML IV PUSH ×3 (05:46→22:14)
[2020-08-11] MEDS: DORNASE ALFA INH SOLN 1 MG/ML 2.5 ML AMP 2.5 MG INHALATION ×2 (07:59→22:05)
[2020-08-11] MEDS: INSULIN DETEMIR 100 UNITS/ML 15 UNITS SUB-Q ×2 (09:52→22:14)
[2020-08-11] MEDS: PANTOPRAZOLE SODIUM IV 40 MG VIAL IV PUSH (09:52)
[2020-08-11] MEDS: ENOXAPARIN 40 MG/0.4 ML SYRINGE SUB-Q ×2 (09:52→22:13)
[2020-08-11] MEDS: VENLAFAXINE HCL XR 75 MG CAP.ER.24H 150 MG PO (09:52)
[2020-08-11] MEDS: acetaZOLAMIDE TAB 250 MG TABLET FEED TUBE ×2 (11:51→22:13)
--- NOTE | 2020-08-11 12:05 | PCDIET ---
ICU Rounding Note: OG tube clogged over weekend and replaced. Tube feedings resumed at 10mL/hr (Glucerna 1.2) but not yet advanced. MD ordered to advance toward goal of 65mL/hr. Last recorded weight is 112.7. Recommend obtaining new weight. Bowel Motility: Last documented BM on 08/04/20. If medically appropriate, would consider adding medication to promote BM. Labs Reviewed: Hgb (12.2), Hct (38.2), Glu (163), BUN (45), Alb (2.7) Meds Noted: Diamox, Albuterol, Fentanyl, Novolog, Levemir, Versed, Levophed, Protonix Additional Notes: 2+ generalized edema, per RN. No documented skin breakdown. Following daily in ICU rounds. Assessing/reassessing every Tuesday/Tuesday.
[2020-08-11 12:14] LABS: Glucose Point of Care 172 (65-105)
--- NOTE | 2020-08-11 12:41 | WPDINTPN ---
Progress Note: A&P Assessment and Plan (1) Acute respiratory failure with hypoxia: Code(s): J96.01 - Acute respiratory failure with hypoxia Status: Acute Assessment and Plan: Acute Respiratory failure secondary to COVID-19 pneumonia COVID test was positive on 07/29/2020, Admitted 08/01 High-flow nasal cannula 08/04 BiPAP 08/05 transferred to ICU and intubated 08/06 Continue mechanical ventilation support to prevent hypoxemia/hypercarbia and end organ damage. patient on low tidal volume ventilation, will wean PEEP to 12, will wean FiO2 to maintain O2 sats greater than 92% ABG and PCXR reviewed Patient responded well to Lasix yesterday, patient getting alkalotic, will order Diamox today for diuresis (2) COVID-19: Code(s): U07.1 - COVID-19 Status: Acute Assessment and Plan: His COVID test was positive on 07/29/2020. Dexamethasone started 08/02 completed course of Remdesivir. Patient received convalescent plasma 08/08/2020 (3) Diabetes mellitus: Code(s): E11.9 - Type 2 diabetes mellitus without complications Status: Acute Assessment and Plan: Patient's glucose was elevated on admission to [facility]. Patient has hx of pre-diabetes. A1c 8.5 so now with DM. continue Levemir and sliding scale will hold metformin at this time (4) Bipolar disorder: Code(s): F31.9 - Bipolar disorder, unspecified Status: Inactive Assessment and Plan: Continue Lamictal and venlafaxine. (5) DVT prophylaxis: Code(s): Z29.9 - Encounter for prophylactic measures, unspecified Status: Acute Assessment and Plan: Lovenox q.12H (6) Electrolyte abnormality: Code(s): E87.8 - Other disorders of electrolyte and fluid balance, not elsewhere classified Status: Acute Assessment and Plan: resolved (7) Hypotension: Code(s): I95.9 - Hypotension, unspecified Status: Acute Assessment and Plan: likely secondary for sedation Levophed OFF since 08/09/2020 Additional Plan Code Status - Full Code Total Critical Care Time - 32 minutes Due to a high probability of clinically significant, life threatening deterioration, the patient required my highest level of preparedness to intervene emergently and I personally spent this critical care time directly and personally managing the patient. This critical care time included obtaining a history; examining the patient; pulse oximetry; ordering and review of studies; arranging urgent treatment with development of a management plan; evaluation of patient's response to treatment; frequent reassessment; and discussions with other providers. It was exclusive of separately billable procedures and treating other patients and teaching time. Please see Assessment and Plan section and the rest of the note for further information on patient assessment and treatment Subjective Date/time seen: 08/11/20 12:41 Interval history: 50yo male with bipolar, pre-DM and recently diagnosed with COVID here for SOB and found to be hypoxic. 08/11/2020: Patient remains intubated on CMV mode of ventilation, peep of 13 and 90% FiO2. T-max of 101.5. Patient responded well to Lasix given yesterday. Remains on fentanyl and Versed infusion for sedation. Patient has been off Levophed since 08/09/2020 Review of Systems Review of Systems: ROS unobtainable: Yes unobtainable due to endotracheal tube and unobtainable due to medical condition Exam Narrative: Exam Narrative: Const: General: comfortable and no acute distress HENMT: Other: ETT in place Eyes: Sclera: sclerae normal Pupils: Equal, round and reactive pupils present Neck: Neck: supple Resp: Effort & Inspection: normal respiratory effort Auscultation: rales and diminished lung sounds Other: coarse breath sounds bilateral Cardio: Rate: regular rate Rhythm: regular rhythm GI: Inspection: non-distended GI Palp: Y
--- NOTE | 2020-08-11 14:31 | PM.IMPN ---
Progress Note: A&P Assessment and Plan (1) Acute respiratory failure with hypoxia: Code(s): J96.01 - Acute respiratory failure with hypoxia Status: Acute Assessment and Plan: Patient with known COVID diagnosed 07/29. Patient presents with complaints of shortness of breath and found to be hypoxic requiring supplemental oxygen. BNP 254 on admission. CXR today showing diffuse airspace disease without change . Patient became more hypoxic morning 08/06 . No CP to suggest PE or cardiac; no dysphagia to suggest aspiration; no fevers to suggest bacterial PNA; bipap failed 08/06 and intubated on respirator now in ICU tapered 02 slightly last 2 days (2) Sepsis: Code(s): A41.9 - Sepsis, unspecified organism Status: Acute Assessment and Plan: Patient with sepsis symptoms present on admission with resp failure, lactic acidosis, hypoxia, fever, and tachycardia . Lactic acid level 3.2 but normalized on recheck. [place] all related to COVID. Continue to monitor closely. (3) COVID-19: Code(s): U07.1 - COVID-19 Status: Acute Assessment and Plan: Patient presents with fever, cough and shortness of breath. His COVID test was positive on 07/29/2020. He is hypoxic on presentation. Finished 10 days of dexamethasone and finished Remdesivir. CXR today showing diffuse airspace disease but possible slight improvement though rad says no change. Received plasma last 08/07 pm but may be to late in course to be beneficial . Continue supportive care. Follow inflammatory markers. (4) Diabetes mellitus: Code(s): E11.9 - Type 2 diabetes mellitus without complications Status: Acute Assessment and Plan: Patient's glucose was elevated on admission to [facility]. Patient has hx of pre-diabetes. A1c 8.5 so now with DM. The patient's blood glucose was reviewed on 08/11 FBS 163 Glucose has been poorly controlled 2nd to the steroids and that he was poorly controlled prior to admission. Continue AccuCheks covering with sliding scale. Hypoglycemia protocol available as needed. Changed to Levemir 15 Q12 to allow for more insulin during the day now that on TF (5) Hypertension: Code(s): I10 - Essential (primary) hypertension Status: Inactive Assessment and Plan: Patient has hypertension listed as a medical problem although he denies. He is not on any medications for this. Blood pressure elevated on admission which again could be stress response but suspect he has underlying HTN. added lisinopril but now on hold. BP reviewed on 08/11 and BP low but off levophed since 08/09. Continue to monitor. (6) Bipolar disorder: Code(s): F31.9 - Bipolar disorder, unspecified Status: Inactive Assessment and Plan: sedated and receiving med per NG (7) DVT prophylaxis: Code(s): Z29.9 - Encounter for prophylactic measures, unspecified Status: Acute Assessment and Plan: Lovenox q.12 Subjective Date/time seen: 08/11/20 14:31 Interval history: Date of service 08/11 50yo male with bipolar, pre-DM and recently diagnosed with COVID here for SOB and found to be hypoxic. Oxygen was increased to the point where he was on 100% with bipap to maintain sats. Intubated and mechanically ventilated 08/06 p.m. Exam Narrative: Exam Narrative: T 38.1 122/82(off pressors 08/09) 104 24 92 % FIO2 70% and 12 peep Gen - NARD, appears comfortable Mouth ET tube and OG secured Chest - no wheeze today , distant BS CV - RRR S1/S2 Abd - soft, NT/ND, +BS Ext - trace pedal edema. Psych and neuro sedated Skin - dry Objective Data Vital Signs Vital Signs: Vital Signs - 24 hr 08/10/20 15:42 08/10/20 15:43 08/10/20 16:00 Temperature 38.2 C H Pulse Rate 87 89 91 Respiratory Rate 24 H 24 H Blood Pressure 101/64 Pulse Oximetry 97 97 08/10/20 17:29 08/10/20 18:00 08/10/20 20:00 Temperature 37.9 C H 37.9 C H Puls
--- NOTE | 2020-08-11 14:43 | PM.PNPUL ---
Progress Note: A&P Assessment and Plan (1) COVID-19: Code(s): U07.1 - COVID-19 Status: Acute (2) Acute respiratory failure with hypoxia: Code(s): J96.01 - Acute respiratory failure with hypoxia Status: Acute (3) ARDS (adult respiratory distress syndrome): Code(s): J80 - Acute respiratory distress syndrome Status: Acute Assessment and Plan: Currently at 6.5 ml/kg/min on CMV. FiO2 weaning. Peak pressure are 27 so Plateau is definitely less than 30 cm H20. Once on 50% and PEEP of 8 or less would recommend weaning trial. Subjective Date/time seen: 08/11/20 14:43 Interval history: 50 y/o with COVID-19 and ARDS received 5 days of Remdesivir and 1 unit of convalescent plasma. Still on Dexamethsone with weaning support from the ventilator which is encouraging Review of Systems Review of Systems: All systems reviewed & are unremarkable except as noted in HPI and below Exam Narrative: Exam Narrative: Const: General: comfortable and no acute distress HENMT: Other: ETT in place Eyes: Sclera: sclerae normal Pupils: Equal, round and reactive pupils present Neck: Neck: supple Resp: Effort & Inspection: normal respiratory effort Auscultation: rales and diminished lung sounds Other: coarse breath sounds bilateral Cardio: Rate: regular rate Rhythm: regular rhythm GI: Inspection: non-distended GI Palp: Yes Soft to palpation and No Tenderness to palpation present (GI) Auscultation: abnormal bowel sounds ( hypoactive bowel sounds) : Other: Jimenez catheter in place Urinary Catheter: Urinary Catheter: patent and draining and urine clear Skin: General skin exam: normal color and no rashes or lesions noted Neuro: Cranial nerves: Yes Equal, round and reactive pupils present Other: patient intubated and sedated, does not open his eyes to name of follows simple commands Extrem: General: normal to inspection, no edema and no pedal edema Psych: Other: unable to assess at this time Objective Data Vital Signs Vital Signs: Vital Signs - 24 hr 08/10/20 15:42 08/10/20 15:43 08/10/20 16:00 Temperature 38.2 C H Pulse Rate 87 89 91 Respiratory Rate 24 H 24 H Blood Pressure 101/64 Pulse Oximetry 97 97 08/10/20 17:29 08/10/20 18:00 08/10/20 20:00 Temperature 37.9 C H 37.9 C H Pulse Rate 91 88 92 Respiratory Rate 24 H 24 H 24 H Blood Pressure 109/75 115/76 Pulse Oximetry 96 97 08/10/20 22:00 08/11/20 00:00 08/11/20 02:00 Temperature 38.1 C H 38.2 C H 38.3 C H Pulse Rate 88 94 96 Respiratory Rate 24 H 24 H 25 H Blood Pressure 110/66 133/81 132/85 Pulse Oximetry 95 95 96 08/11/20 02:28 08/11/20 02:55 08/11/20 03:08 Temperature Pulse Rate 96 101 H 101 H Respiratory Rate 24 H 22 H 22 H Blood Pressure Pulse Oximetry 08/11/20 04:00 08/11/20 05:41 08/11/20 05:45 Temperature 38.3 C H 38.6 C H Pulse Rate 103 H 104 H Respiratory Rate 25 H 24 H Blood Pressure 133/91 H Pulse Oximetry 96 08/11/20 05:46 08/11/20 06:00 08/11/20 06:41 Temperature 38.7 C H 38.6 C H Pulse Rate 101 H 103 H Respiratory Rate 24 H 24 H Blood Pressure 122/78 Pulse Oximetry 96 08/11/20 07:59 08/11/20 08:00 08/11/20 10:00 Temperature 38.5 C H 38.2 C H Pulse Rate 105 H 104 H 106 H Respiratory Rate 27 H 22 H 23 H Blood Pressure 126/77 122/83 Pulse Oximetry 97 97 95 08/11/20 11:43 08/11/20 11:50 08/11/20 14:14 Temperature 38.3 C H Pulse Rate 101 H 105 H Respiratory Rate 26 H Blood Pressure Pulse Oximetry 96 97 Intake/Output Intake/Output: Intake & Output 08/08/20 08/09/20 08/10/20 08/11/20 23:59 23:59 23:59 23:59 Intake Total 4060.0 3349.9 1050.2 624 Output Total 1400 2150 2510 750 Balance 2660.0 1199.9 -1459.8 -126 Meds/Results Medications: Active Medications Generic Name Dose Route Start Last Admin Trade Name Freq PRN Reason Stop Dose Admin Acetaminophen 650 mg 08/11/20 05:21 08/11/20 11:50 Ac
[2020-08-11 19:01] LABS: Glucose Point of Care 167 (65-105)
--- NOTE | 2020-08-11 21:45 | PC.NURSE ---
Dr. Mccullough notified of elevated temperature, HR, wound under ETAD zhao. New orders per Dr. Mccullough, UA w/ reflex culture, lactic acid and vancomycin.
--- NOTE | 2020-08-11 22:01 | PC.NURSE ---
Ice packs applied to patient and Tylenol switched to IV currently.
[2020-08-11] MEDS: lamoTRIgine 100 MG TABLET 200 MG PO (22:13)
[2020-08-11 22:20] LABS: Add Urine Microscopic? YES; Appearance Urine Clear (Clear); Bacteria Urine Trace /hpf; Bilirubin Urine 1+ (Negative); Blood Urine Negative (Negative); Color Urine Amber (Yellow); Glucose Urine UA Negative (Negative); Ketones Urine Negative (Negative); Leukocyte Esterase Ur Negative LEU/UL (Negative); Mucus Urine Rare /lpf; Nitrate Urine Negative (Negative); Protein Urine 1+ mg/dL (Negative); Squamous Epithelial Cell Urine Rare /hpf (Few); WBC Urine 0-3 /hpf
[2020-08-11] MEDS: FENTANYL 2,500MCG/NS250ML(*CRX 2,500 MCG/250 ML BAG 15 MCG IV CONT (22:24)
[2020-08-11 22:25] LABS: Lactic Acid Reflex 2.2 mmol/L (0.7-2.1)
--- NOTE | 2020-08-11 23:00 | PC.NURSE ---
Dr. Cavanaugh notified of temperature and previous orders from Dr. Mccullough. Add in Cefepime 2GM Q8H and Blood culture set.
[2020-08-11] MEDS: INSULIN ASPART (*BKC) 100 UNITS/ML SUB-Q (23:26)
[2020-08-11 23:32] LABS: Glucose Point of Care 215 (65-105)
[2020-08-12] VITALS (54 sets, daily range): BP systolic 91–130; BP diastolic 70–92; PULSE 107–133; RESP 21–34; TEMP 38.2–39.3; O2SAT 90–100
[2020-08-12 01:12] LABS: Reflex Lactic Acid Yes or No Add Lactic
[2020-08-12] MEDS: ALBUTEROL SULFATE NEB 2.5 MG/0.5 ML INH 5 MG INHALATION ×4 (02:34→20:02)
[2020-08-12 04:58] LABS: Alveolar/Arterial O2 Gradient 372.4 mmHg; Arterial Blood Gas Ventilator rate 24 /MIN; Base Excess ABG 3.2 mEq/l (+/-2.0); Carboxyhemoglobin 0.7 % THb (0-2.0); Device VENTILATOR; Fractional Inspired Oxygen 70 %; HCO3 ABG 29.8 mEq/l (22.0-26.0); Methemoglobin ABG 0.3 %THb (0-1.5); Modified Allen's Test Unable to perform; Oxygen Saturation ABG 93.1 % (95.0-100.0); Oxyhemoglobin 91.9 % THb (90.0-100.0); PCO2 ABG 53.3 mmHg (35.0-45.0); PO2 ABG 69.4 mmHg (80.0-100.0); PO2 FiO2 Ratio Arterial Blood 0.99 %; Reduced Hemoglobin 7.1 %THb (0-5.0); Site Drawn RIGHT RADIAL; Total Hemoglobin 13.9 g/dL (12.0-18.0); pH ABG 7.365 (7.350-7.450)
[2020-08-12 04:59] LABS: Arterial Blood Gas PEEP 12 cmH2O; Arterial Blood Gas Tidal Volume 450 ml; Arterial Blood Gas Vent Mode CMV
[2020-08-12 06:00] LABS: Magnesium 2.5 mg/dL (1.6-2.3)
[2020-08-12 06:05] LABS: Basophils Absolute Auto 0.1 K/mm3 (0.0-0.1); Basophils Percent Auto 0.6 % (0.2-1.2); Eosinophils Percent Auto 0.1 % (0-4.4); Hemoglobin 12.9 g/dL (14.0-18.0); Immature Granulocyte Absolute 0.19 K/mm3 (0.00-0.031); Immature Granulocyte Percent A 1.2 % (0-0.5); Lymphocytes Absolute Auto 0.68 K/mm3 (0.9-3.2); Lymphocytes Percent Auto 4.2 % (18.3-44.2); Mean Corpuscular HGB Conc 31.5 g/dl (32-36); Mean Corpuscular Hemoglobin 29.6 pg (26-34); Mean Platelet Volume 10.6 fl (7.4-10.4); Monocytes Absolute Auto 0.9 K/mm3 (0.1-0.6); Monocytes Percent Auto 5.8 % (2.6-8.5); Neutrophils Absolute Auto 14.3 K/mm3 (1.3-6.7); Neutrophils Percent Auto 88.1 % (45.5-73.1); Platelet Count Result 367 k/mm3 (150-375); Red Blood Count 4.36 M/mm3 (4.6-6.20); Red Cell Distribution Width 14.4 % (11.5-14.5); White Blood Count 16.2 K/mm3 (4.5-10.0)
[2020-08-12 06:09] LABS: Anion Gap 4 mmol/L (8-16); Blood Urea Nitrogen 50 mg/dL (9-20); Calcium 8.3 mg/dL (8.4-10.2); Carbon Dioxide 35 mmol/L (22-30); Chloride 104 mmol/L (98-107); Estimated CRCL calculation 99 ml/min; Estimated Glomerular Filt Rate > 60; Glucose 202 mg/dL (75-110); Lactic Acid Reflex 2.7 mmol/L (0.7-2.1); Potassium 4.8 mmol/L (3.4-5.0); Sodium 143 mmol/L (137-145)
--- NOTE | 2020-08-12 07:00 | PM.CNGS ---
Assessment and Plan Assessment and plan (1) Pneumothorax on right: Code(s): J93.9 - Pneumothorax, unspecified Status: Acute Assessment and Plan: Will proceed with emergent right chest tube placement. I have reviewed the x-ray with his positive pressure ventilation he is high risk for worsening pneumothorax or tension pneumothorax. Chest tube will likely need to be maintained until he is off the ventilator and there is no further sign of air leak. (2) ARDS (adult respiratory distress syndrome): Code(s): J80 - Acute respiratory distress syndrome Status: Acute (3) COVID-19: Code(s): U07.1 - COVID-19 Status: Acute (4) BMI 40.0-44.9, adult: Code(s): Z68.41 - Body mass index [BMI]40.0-44.9, adult Status: Acute History of Present Illness Consult details Consult date: 08/12/20 Reason for consult: chest tube Requesting physician: Tom Cavanaugh MD Narrative: I was called emergently for chest tube placement on a patient in the ICU who is morning chest x-ray showed evidence of a right pneumothorax. This is a 50-year-old man who is currently intubated in the ICU on high ventilator pressures. He is currently on sedation and is unresponsive. His chest x-ray this morning showed evidence of a right pneumothorax. He is on high PEEP but the nurses report no significant change in his condition this morning. A brief review of the chart and x-rays was performed. Review of Systems Review of Systems: ROS unobtainable: Yes unobtainable due to endotracheal tube PMFSH Past Medical History Medical History Bipolar disorder Depression Diabetes mellitus Hypertension patient denies Surgical History Surgical History History of appendectomy Family History Family History Other Family history of alcoholism Family history of mental disorder Social History Social History Social History: He lives at home with his and 3 children. He denies tobacco alcohol drug use. 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 He is a full code. Nominates his to be the individual would make medical decisions for if he is not able. Smoking status: Never smoker Second hand tobacco smoke exposure: No Alcohol intake: never Substance use: never Substance use type: does not use Gender identity (if verbalized by the patient): Male Sexual Orientation (if Verbalized by the Patient): Straight or Heterosexual Spiritual care concerns: No Meds Home Medications and Allergies Home Medications Medication Instructions Recorded Confirmed Type lamotrigine 200 mg PO HS 08/01/20 08/01/20 History venlafaxine 150 mg PO DAILY 08/01/20 08/02/20 History Allergies Allergy/AdvReac Type Severity Reaction Status Date / Time No Known Allergies Allergy Verified 08/01/20 14:48 Exam Const: General: patient obtunded Nutritional Appearance: obese morbidly obese Chest: Chest palpation & inspection: normal inspection of the chest Resp: Auscultation: crackles and breath sounds absent on the right Cardio: Rate: regular rate Rhythm: regular rhythm Heart sounds: S1 normal heart sound present and S2 normal heart sound present Results Labs Result diagrams: 08/13/20 03:55 08/13/20 03:55 Imaging Additional studies: ITS Impressions Chest X-Ray 08/01/20 10:25 IMPRESSION: Moderate amount of patchy acute ill-defined airspace disease. Clinical correlation. Chest X-Ray 08/02/20 09:17 IMPRESSION: 1. Diffuse lung disease with slight interval improvement on the right, consistent with pneumonia and/or pulmonary edema and/or acute respiratory distress syndrome (ARDS). 2. Cardiomegaly. Chest X-Ray 08/03/20 08:22 IMPRESSION: 1. Diffuse harjeet
[2020-08-12] MEDS: CENTRAL LINE FLUSH 10 ML IV PUSH ×3 (07:41→21:21)
[2020-08-12] MEDS: ROCURONIUM BROMIDE 50 MG/5 ML VIAL IV PUSH ×2 (07:47→09:34)
[2020-08-12] MEDS: INSULIN DETEMIR 100 UNITS/ML 15 UNITS SUB-Q ×2 (08:12→21:51)
[2020-08-12] MEDS: INSULIN ASPART (*BKC) 100 UNITS/ML SUB-Q ×4 (08:12→23:44)
[2020-08-12] MEDS: ENOXAPARIN 40 MG/0.4 ML SYRINGE SUB-Q ×2 (08:18→21:20)
[2020-08-12] MEDS: PANTOPRAZOLE SODIUM IV 40 MG VIAL IV PUSH (08:19)
[2020-08-12] MEDS: DORNASE ALFA INH SOLN 1 MG/ML 2.5 ML AMP 2.5 MG INHALATION ×2 (09:07→20:02)
--- NOTE | 2020-08-12 10:19 | WPDINTPN ---
Progress Note: A&P Assessment and Plan (1) ARDS (adult respiratory distress syndrome): Code(s): J80 - Acute respiratory distress syndrome Status: Acute Assessment and Plan: Plateau was 35 to 36 this morning. After decreasing TV to 350 and PEEP to 8 plateua is now 29-30. Continue paralytics and deep sedation with propofol and fentanyl (2) Diabetes mellitus: Code(s): E11.9 - Type 2 diabetes mellitus without complications Status: Acute Assessment and Plan: continue detemir 15 units SC bid diabetic tube feeds (3) Acute respiratory failure with hypoxia: Code(s): J96.01 - Acute respiratory failure with hypoxia Status: Acute Assessment and Plan: Vent settings changed to TV 350, RR 30, PEEP 8, titrating FiO2 for sats of 92-96%. Paralytic therapy with deep sedation to prevent coughing for next 24-48 hours (4) COVID-19: Code(s): U07.1 - COVID-19 Status: Acute Assessment and Plan: Has received 5 days of Remdesivir and 1 unit of convalescent plasma. (5) Pneumothorax on right: Code(s): J93.9 - Pneumothorax, unspecified Status: Acute Assessment and Plan: likely due to barotrauma. Chest tube inserted this morning. Needs to be advanced as CXR shows chest tube not fully inserted. Nurse informed to call Surgeon. Decreased TV and PEEP this morning which will help. (6) Sepsis: Code(s): A41.9 - Sepsis, unspecified organism Status: Acute Assessment and Plan: Has been febrile consistently for the past 5 days. Most likely due to COVID-19 but bacterial and invasive fungal infections need to be ruled out. Blood, urine and sputum cultures are pending from last night. Agree with broad spectrum antiboitics with cefepime and vancomycin Will get fungal blood cultures Time Spent With Patient Time: A total of 35 minutes of critical care time was spent excluding all procedures Subjective Date/time seen: 08/12/20 10:19 Interval history: Developed small right apical pneumothorax this morning likely due to barotrauma, right chest tube placed this morning with chest tube not fully inserted on CXR Review of Systems Review of Systems: All systems reviewed & are unremarkable except as noted in HPI and below Exam Narrative: Exam Narrative: Const: General: comfortable and no acute distress HENMT: Other: ETT in place Eyes: Sclera: sclerae normal Pupils: Equal, round and reactive pupils present Neck: Neck: supple Resp: Effort & Inspection: normal respiratory effort Auscultation: rales and diminished lung sounds Other: coarse breath sounds bilateral Cardio: Rate: regular rate Rhythm: regular rhythm GI: Inspection: non-distended GI Palp: Yes Soft to palpation and No Tenderness to palpation present (GI) Auscultation: abnormal bowel sounds ( hypoactive bowel sounds) : Other: Jimenez catheter in place Urinary Catheter: Urinary Catheter: patent and draining and urine clear Skin: General skin exam: normal color and no rashes or lesions noted Neuro: Cranial nerves: Yes Equal, round and reactive pupils present Other: patient intubated and sedated, does not open his eyes to name of follows simple commands Extrem: General: normal to inspection, no edema and no pedal edema Psych: Other: unable to assess at this time Objective Data Vital Signs Vital Signs: Vital Signs - 24 hr 08/11/20 11:43 08/11/20 11:50 08/11/20 12:00 Temperature 38.3 C H 38.4 C H Pulse Rate 101 H 101 H Respiratory Rate 24 H Blood Pressure 114/79 Pulse Oximetry 96 95 08/11/20 12:50 08/11/20 14:00 08/11/20 14:14 Temperature 38.4 C H 38.4 C H Pulse Rate 105 H 105 H Respiratory Rate 22 H 26 H Blood Pressure 116/74 Pulse Oximetry 97 97 08/11/20 16:00 08/11/20 16:43 08/11/20 17:03 Temperature 38.6 C H Pulse Rate 110 H 109 H 111 H Respiratory Rate 22 H 23 H Blood Pressure 112/84 Pulse Oximetry 96 96 08/11/20 17
[2020-08-12 11:03] LABS: Alveolar/Arterial O2 Gradient 559.3 mmHg; Carboxyhemoglobin 0.3 % THb (0-2.0); Fractional Inspired Oxygen 100 %; HCO3 ABG 30.7 mEq/l (22.0-26.0); Methemoglobin ABG 0.4 %THb (0-1.5); Oxygen Content ABG 19.5 %vol (16.0-22.0); Oxygen Saturation ABG 95.2 % (95.0-100.0); Oxyhemoglobin 94.6 % THb (90.0-100.0); PO2 ABG 87.1 mmHg (80.0-100.0); PO2 FiO2 Ratio Arterial Blood 0.87 %; Reduced Hemoglobin 4.7 %THb (0-5.0); Total Hemoglobin 14.6 g/dL (12.0-18.0)
[2020-08-12 11:05] LABS: PCO2 ABG 66.6 mmHg (35.0-45.0); pH ABG 7.281 (7.350-7.450)
[2020-08-12 11:06] LABS: Device VENTILATOR; Modified Allen's Test Pass; Site Drawn RIGHT RADIAL
[2020-08-12 11:07] LABS: Arterial Blood Gas PEEP 8 cmH2O; Arterial Blood Gas Tidal Volume 350 ml; Arterial Blood Gas Vent Mode CMV; Arterial Blood Gas Ventilator rate 30 /MIN
[2020-08-12] MEDS: VENLAFAXINE HCL XR 75 MG CAP.ER.24H 150 MG PO (11:31)
[2020-08-12] MEDS: acetaZOLAMIDE TAB 250 MG TABLET FEED TUBE ×2 (11:31→21:19)
[2020-08-12 12:10] LABS: Glucose Point of Care 233 (65-105)
[2020-08-12] MEDS: FENTANYL 2,500MCG/NS250ML(*CRX 2,500 MCG/250 ML BAG 20 MCG IV CONT (13:02)
--- NOTE | 2020-08-12 13:17 | PCDIET ---
Nutrition Follow-Up Complete: Nutrition Diagnosis: Inadequate oral intake related to oral intubation as evidenced by NPO status. Nutrition Goal: Patient to meet estimated nutritional needs. Goal in progress. Patient tolerating Glucerna 1.2 at 40mL/hr without reported issues. Goal rate is 65mL/hr with 30mL water flush every 4 hours. Last recorded weight is 124.2 kg which is increased from last review, despite -I/O. Bowel Motility: No documented BM since 08/04/20 - discussed with RN during rounds. Labs Reviewed: Hgb (12.9), Hct (41.0), Glu (202), BUN (50), Ca (8.3) Meds Noted: Albuterol, Cefepime, Fentanyl, Novolog, Levemir, Versed, Levophed, Protonix, Vancomycin Additional Notes: Skin tear on cheek reported. No pressure ulcers. Will continue to monitor with same goal. Nutrition Monitoring and Evaluation: Follow up every Tuesday/Tuesday.
--- NOTE | 2020-08-12 14:50 | P.OP_ITS ---
Procedure Note - Detailed Date of procedure: 08/12/20 Pre-op diagnosis: right pneumothorax, COVID Post-op diagnosis: same Procedure performed: Right thoracostomy tube placement Description of procedure: Procedure as well as risks benefits and alternatives were explained to the patient. Written consent was obtained and placed in chart prior to procedure. Time-out was done to confirm patient and procedure. Patient was placed in supine position in hospital bed. His right chest area was prepped and draped in sterile fashion using chlorhexidine prep. A 2 cm incision was made using a 15 blade scalpel. Careful blunt dissection was carried out down to the 6th rib. A curved hemostat was then used to bluntly dissect directly over the 6th rib and into the 5th intercostal space. Then bluntly entered into the intercostal space and through the pleura into the pleural cavity. A gush of air and cloudy pleural fluid was released. A 28 American chest tube was then advanced cephalad and anteriorly. The chest tube was sutured in place using 0 silk suture. Vaseline gauze was then applied at the insertion site, followed by 4 x 4 gauze and silk tape. The chest tube was applied to -20 cm of water suction. The patient was then sat up in bed and chest x-ray was ordered to confirm placement. Surgeon: Cornel Bradshaw DO Estimated blood loss (mL): 2 Drains: Yes ( 28 American chest tube) Complications: No immediate complications Condition: critical Disposition: ICU Findings: This is a 50-year-old man who is currently in the ICU with COVID and respiratory failure. On his morning chest x-ray, a right pneumothorax was noted. He is on high PEEP and is febrile. I was called to evaluate the patient urgently for chest tube placement due to him being on such high positive p ressure ventilation. I reviewed the x-ray and determined that urgent chest tube placement was necessary to prevent further decompensation. Right chest tube placement was performed. A 28 American chest tube was placed. Upon entering the pleural cavity, there was a release of air but also some cloudy slightly blood tinged pleural fluid. The patient became tachypneic and was over breathing the vent and then began becoming hypoxic immediately after chest tube was placed. Once he was suctioned and bag ventilated for about a minute, his oxygen saturations improved. Chest tube was placed to -20 cm water suction and chest x-ray was ordered to confirm placement.
[2020-08-12 16:47] LABS: Alveolar/Arterial O2 Gradient 513.5 mmHg; Base Excess ABG 2.2 mEq/l (+/-2.0); Fractional Inspired Oxygen 100 %; HCO3 ABG 29.7 mEq/l (22.0-26.0); Oxygen Content ABG 18.3 %vol (16.0-22.0); Oxygen Saturation ABG 98.5 % (95.0-100.0); Oxyhemoglobin 97.4 % THb (90.0-100.0); PCO2 ABG 59.3 mmHg (35.0-45.0); PO2 ABG 140.2 mmHg (80.0-100.0); Site Drawn LEFT RADIAL; Total Hemoglobin 13.2 g/dL (12.0-18.0); pH ABG 7.318 (7.350-7.450)
[2020-08-12 16:48] LABS: Arterial Blood Gas PEEP 8 cmH2O; Arterial Blood Gas Tidal Volume 350 ml; Arterial Blood Gas Vent Mode CMV; Arterial Blood Gas Ventilator rate 34 /MIN; Device VENTILATOR; Modified Allen's Test Pass
[2020-08-12 17:49] LABS: Glucose Point of Care 203 (65-105)
--- NOTE | 2020-08-12 19:52 | PM.IMPN ---
Progress Note: A&P Assessment and Plan (1) Acute respiratory failure with hypoxia: Code(s): J96.01 - Acute respiratory failure with hypoxia Status: Acute Assessment and Plan: Patient with known COVID diagnosed 07/29. Patient presents with complaints of shortness of breath and found to be hypoxic requiring supplemental oxygen. BNP 254 on admission. Patient became more hypoxic morning 08/06; BiPAP failed 08/06 and intubated on respirator now in ICU. Curently on PEEP 8, FiO2 100%. Wean as toelrated. COntineu Albuterol, pulmozyme. (2) Sepsis: Code(s): A41.9 - Sepsis, unspecified organism Status: Acute Assessment and Plan: Patient with sepsis with shock; sepsis symptoms present on admission with resp failure, lactic acidosis, hypoxia, fever, and tachycardia. Developed HoTN and did require Levophed but off since 08/09. [place] related to COVID but now with +BCx. BCx 08/01 negative but redrawn on 08/07 and positive (1of2) for Gram Positive Cocci in clusters. Vancomycin and Cefepime started. Continue to monitor closely. (3) Pneumothorax on right: Code(s): J93.9 - Pneumothorax, unspecified Status: Acute Assessment and Plan: Rt PTX on CXR today. Chest Tube placed. Appreciate Gen Surgery input. (4) COVID-19: Code(s): U07.1 - COVID-19 Status: Acute Assessment and Plan: Patient presents with fever, cough and shortness of breath. His COVID test was positive on 07/29/2020. He was hypoxic on presentation. Finished 10 days of dexamethasone and finished Remdesivir. CXR today showing diffuse airspace disease with Rt PTX. Received plasma last 08/07 pm but may be too late in course to be beneficial. Continue supportive care. Follow inflammatory markers. (5) Diabetes mellitus: Code(s): E11.9 - Type 2 diabetes mellitus without complications Status: Acute Assessment and Plan: Patient's glucose was elevated on admission to [facility]. Patient has hx of pre-diabetes. A1c 8.5 so now with DM. The patient's blood glucose was reviewed on 08/12 Glucose has been poorly controlled 2nd to the steroids and that he was poorly controlled prior to admission. Continue AccuCheks covering with sliding scale. Hypoglycemia protocol available as needed. Changed to Levemir 15U Q12 to allow for more insulin during the day now that on TF. (6) Hypertension: Code(s): I10 - Essential (primary) hypertension Status: Inactive Assessment and Plan: Patient has hypertension listed as a medical problem although he denies. He is not on any medications for this. Blood pressure elevated on admission which again could be stress response but suspect he has underlying HTN. Added lisinopril but now on hold. BP reviewed on 08/12 and BP soft but off levophed since 08/09. Continue to monitor. (7) Bipolar disorder: Code(s): F31.9 - Bipolar disorder, unspecified Status: Inactive Assessment and Plan: sedated and receiving med per NG (8) DVT prophylaxis: Code(s): Z29.9 - Encounter for prophylactic measures, unspecified Status: Acute Assessment and Plan: Lovenox q.12 Subjective Date/time seen: 08/12/20 19:52 Interval history: Date of service 08/12 50yo male with bipolar, pre-DM and recently diagnosed with COVID here for SOB and found to be hypoxic. Noted to have Rt PTX this morning. He had a chest tube placed. He is paralzyed now. BCx positive as well. Patient intubated and sedated. He has a cooling blanket on for persistent fevers. Review of Systems Review of Systems: ROS unobtainable: Yes unobtainable due to endotracheal tube Exam Narrative: Exam Narrative: Tm 102.8 101.5 105/71 110 34 100% MV Gen - intubated, sedated and paralyzed; cooling blanket in place HEENT - ET tube and OG secured Chest - clear anteriorly; Chest tube secured on the right CV - regular, tachycardic S1/S2; T
[2020-08-12] MEDS: lamoTRIgine 100 MG TABLET 200 MG PO (21:19)
[2020-08-13] VITALS (47 sets, daily range): BP systolic 106–137; BP diastolic 65–97; PULSE 99–127; RESP 30–34; TEMP 37.1–38.9; O2SAT 85–96
--- NOTE | 2020-08-13 | ECHO_ITS ---
Patient Info Name: Migel Estrada Age: 50 years : 1970 Gender: Male Ht: 68 in Wt: 282 lbs BSA: 2.54 m2 HR: 124 bpm BP: 123 / 69 mmHg Technical Quality: Fair Exam Date: 08/13/2020 10:51 AM Exam Location: [facility] Patient Status: Inpatient Admit Date: 08/01/2020 Staff Ordering Physician: Tom Cavanaugh MD Restaurant Floor Manager: Colt Lee RDCS, RT Attending Provider: Deon Rodriguez MD Referring Physician: Mao BRAGG; Exam Type: CA echo doppler color flow Study Info Indications R65.20 - Severe sepsis without septic shock Complete two-dimensional, color flow and Doppler transthoracic echocardiogram is performed. Summary 1. Complete two-dimensional, color flow and Doppler transthoracic echocardiogram is performed. 2. Left ventricular chamber dimension is normal. 3. Left ventricular systolic function is normal, estimated at 65-70%. 4. There is moderately increased left ventricular wall thickness. 5. The left ventricular diastolic function is grade I diastolic dysfunction. 6. The aortic root size at the sinus of Valsalva is borderline dilated at 4.0 cm. 7. Dilated inferior vena cava with <50% collapse upon inspiration consistent with significantly elevated right atrial pressure, 15 mmHg. Left Ventricle Tissue doppler is not performed. Left ventricular chamber dimension is normal. Left ventricular systolic function is normal, estimated at 65-70%. There is moderately increased left ventricular wall thickness. The left ventricular diastolic function is grade I diastolic dysfunction. Right Ventricle Right ventricular chamber dimension is normal. Right ventricular systolic function is normal. Left Atria Left atrial chamber dimension is normal. Right Atria Right atrial chamber dimension is normal. Aortic Valve The aortic valve is trileaflet. There is no aortic valve stenosis. There is no aortic valve regurgitation. Pulmonic Valve There is no pulmonic regurgitation. Mitral Valve There is no mitral valve stenosis. There is no mitral valve regurgitation. Tricuspid Valve There is no tricuspid valve regurgitation. Pericardium/Pleural There is no pericardial effusion. Inferior Vena Cava Dilated inferior vena cava with <50% collapse upon inspiration consistent with significantly elevated right atrial pressure, 15 mmHg. Aorta The aortic root size at the sinus of Valsalva is borderline dilated at 4.0 cm. Left Ventricular Outflow Tract Name Value Normal LVOT 2D LVOT Diameter 2.0 cm LVOT Doppler LVOT Peak Gradient 4 mmHg LVOT Mean Gradient 2 mmHg LVOT VTI 27 cm LVOT VTI/AV VTI Ratio 1.2 LVOT Stroke Volume 82 ml LVOT CO 9.9 l/min LVOT CI 3.9 l/min/m2 Mitral Valve Name Value Normal
[2020-08-13 00:29] LABS: Glucose Point of Care 210 (65-105)
--- NOTE | 2020-08-13 00:30 | PC.NURSE ---
Dr. Mccullough notified of O2 Sat of 88%. order for chest portable to evaluate pneumothorax.
--- NOTE | 2020-08-13 01:07 | PC.NURSE ---
Updated Dr. Cavanaugh regarding HR and O2sat. GIve 500NS bolus. If patient remains ST, do cheetah and evaluate to see if patient is fluid responsive. O2Sat currently 90%. If patient drops below 90% and sustains, prone patient.
[2020-08-13] MEDS: SODIUM CHLORIDE 0.9% IV 500 ML 999 ML IV CONT (01:20)
[2020-08-13] MEDS: ALBUTEROL SULFATE NEB 2.5 MG/0.5 ML INH 5 MG INHALATION ×3 (02:14→20:44)
[2020-08-13] MEDS: FENTANYL 2,500MCG/NS250ML(*CRX 2,500 MCG/250 ML BAG 20 MCG IV CONT ×2 (03:28→16:56)
[2020-08-13] MEDS: SODIUM CHLORIDE 0.9% IV 1,000 ML 70 ML IV CONT ×2 (03:49→21:11)
[2020-08-13 04:35] LABS: Basophils Absolute Auto 0.1 K/mm3 (0.0-0.1); Basophils Percent Auto 0.5 % (0.2-1.2); Eosinophils Absolute Auto 0.1 K/mm3 (0-0.3); Eosinophils Percent Auto 0.6 % (0-4.4); Hematocrit 38.9 % (42.0-52.0); Hemoglobin 11.6 g/dL (14.0-18.0); Immature Granulocyte Absolute 0.42 K/mm3 (0.00-0.031); Lymphocytes Absolute Auto 0.74 K/mm3 (0.9-3.2); Lymphocytes Percent Auto 5.2 % (18.3-44.2); Mean Corpuscular HGB Conc 29.8 g/dl (32-36); Mean Corpuscular Hemoglobin 28.8 pg (26-34); Mean Corpuscular Volume 96.5 fl (80-100); Mean Platelet Volume 10.8 fl (7.4-10.4); Monocytes Absolute Auto 0.9 K/mm3 (0.1-0.6); Monocytes Percent Auto 6.2 % (2.6-8.5); Neutrophils Absolute Auto 11.9 K/mm3 (1.3-6.7); Neutrophils Percent Auto 84.5 % (45.5-73.1); Platelet Count Result 336 k/mm3 (150-375); Red Blood Count 4.03 M/mm3 (4.6-6.20); Red Cell Distribution Width 14.5 % (11.5-14.5); White Blood Count 14.1 K/mm3 (4.5-10.0)
[2020-08-13 05:01] LABS: Alanine Aminotransferase 144 U/L (4-50); Albumin Level 2.1 g/dL (3.5-5.1); Alkaline Phosphatase 260 U/L (38-126); Anion Gap 2 mmol/L (8-16); Aspartate Amino Transferase 122 U/L (17-59); Bilirubin,Total 2.2 mg/dL (0.2-1.3); Blood Urea Nitrogen 36 mg/dL (9-20); Calcium 7.7 mg/dL (8.4-10.2); Carbon Dioxide 34 mmol/L (22-30); Chloride 104 mmol/L (98-107); Estimated CRCL calculation 124 ml/min; Estimated Glomerular Filt Rate > 60; Glucose 213 mg/dL (75-110); Magnesium 2.4 mg/dL (1.6-2.3); Phosphorus 3.2 mg/dL (2.5-4.5); Potassium 4.3 mmol/L (3.4-5.0); Sodium 140 mmol/L (137-145)
[2020-08-13] MEDS: CENTRAL LINE FLUSH 10 ML IV PUSH ×3 (05:17→21:51)
[2020-08-13] MEDS: INSULIN ASPART (*BKC) 100 UNITS/ML SUB-Q ×2 (05:18→23:53)
[2020-08-13 05:20] LABS: Alveolar/Arterial O2 Gradient 588.9 mmHg; Base Excess ABG -2.2 mEq/l (+/-2.0); Carboxyhemoglobin 0.9 % THb (0-2.0); Fractional Inspired Oxygen 100 %; HCO3 ABG 25.9 mEq/l (22.0-26.0); Methemoglobin ABG 0.3 %THb (0-1.5); Oxygen Saturation ABG 89.4 % (95.0-100.0); Oxyhemoglobin 90.1 % THb (90.0-100.0); PCO2 ABG 58.9 mmHg (35.0-45.0); PO2 ABG 65.2 mmHg (80.0-100.0); PO2 FiO2 Ratio Arterial Blood 0.65 %; Reduced Hemoglobin 8.7 %THb (0-5.0); Total Hemoglobin 14.2 g/dL (12.0-18.0)
[2020-08-13 05:21] LABS: Arterial Blood Gas Vent Mode CMV; Arterial Blood Gas Ventilator rate 34 /MIN; Device VENTILATOR; Modified Allen's Test Unable to perform; Site Drawn LEFT RADIAL; pH ABG 7.261 (7.350-7.450)
[2020-08-13 05:22] LABS: Arterial Blood Gas PEEP 8 cmH2O; Arterial Blood Gas Tidal Volume 350 ml
[2020-08-13 05:39] LABS: CRP 33.8 mg/dL (<1.0)
[2020-08-13] MEDS: DORNASE ALFA INH SOLN 1 MG/ML 2.5 ML AMP 2.5 MG INHALATION ×2 (08:25→20:44)
[2020-08-13] MEDS: PANTOPRAZOLE SODIUM IV 40 MG VIAL IV PUSH (08:45)
[2020-08-13] MEDS: VENLAFAXINE HCL XR 75 MG CAP.ER.24H 150 MG PO (08:45)
[2020-08-13] MEDS: ENOXAPARIN 40 MG/0.4 ML SYRINGE SUB-Q ×2 (08:45→21:52)
[2020-08-13] MEDS: INSULIN DETEMIR 100 UNITS/ML 15 UNITS SUB-Q ×2 (08:46→21:51)
--- NOTE | 2020-08-13 09:58 | PM.PNPUL ---
Progress Note: A&P Assessment and Plan (1) ARDS (adult respiratory distress syndrome): Code(s): J80 - Acute respiratory distress syndrome Status: Acute Assessment and Plan: Continue TV to 350 and PEEP to 8 plateua is now 29-30. Continue paralytics and deep sedation with propofol and fentanyl (2) Diabetes mellitus: Code(s): E11.9 - Type 2 diabetes mellitus without complications Status: Acute Assessment and Plan: continue detemir 15 units SC bid diabetic tube feeds (3) Acute respiratory failure with hypoxia: Code(s): J96.01 - Acute respiratory failure with hypoxia Status: Acute Assessment and Plan: Vent settings changed to TV 350, RR 30, PEEP 8, titrating FiO2 for sats of 92-96%. Paralytic therapy with deep sedation to prevent coughing for next 24-48 hours (4) COVID-19: Code(s): U07.1 - COVID-19 Status: Acute Assessment and Plan: Has received 5 days of Remdesivir and 1 unit of convalescent plasma. (5) Pneumothorax on right: Code(s): J93.9 - Pneumothorax, unspecified Status: Acute Assessment and Plan: likely due to barotrauma. Chest tube inserted this morning. Needs to be advanced as CXR shows chest tube not fully inserted. Nurse informed to call Surgeon. Decreased TV and PEEP this morning which will help. (6) Sepsis: Code(s): A41.9 - Sepsis, unspecified organism Status: Acute Assessment and Plan: Staph Aureus in Blood. On vancomycin. TTE pending to r/o endocarditis Subjective Date/time seen: 08/13/20 09:58 Interval history: 50 y/o with ARDS, COVID-19, septic shock with fevers for past five days. Blood cultures growing Staph Aureus. Received 5 days of Remdesivir and 1 unit of Convalescent Plasma. Still on Dexamethasone Review of Systems Review of Systems: All systems reviewed & are unremarkable except as noted in HPI and below Exam Narrative: Exam Narrative: Const: General: comfortable and no acute distress HENMT: Other: ETT in place Eyes: Sclera: sclerae normal Pupils: Equal, round and reactive pupils present Neck: Neck: supple Resp: Effort & Inspection: normal respiratory effort Auscultation: rales and diminished lung sounds Other: coarse breath sounds bilateral Cardio: Rate: regular rate Rhythm: regular rhythm GI: Inspection: non-distended GI Palp: Yes Soft to palpation and No Tenderness to palpation present (GI) Auscultation: abnormal bowel sounds ( hypoactive bowel sounds) : Other: Jimenez catheter in place Urinary Catheter: Urinary Catheter: patent and draining and urine clear Skin: General skin exam: normal color and no rashes or lesions noted Neuro: Cranial nerves: Yes Equal, round and reactive pupils present Other: patient intubated and sedated, does not open his eyes to name of follows simple commands Extrem: General: normal to inspection, no edema and no pedal edema Psych: Other: unable to assess at this time Objective Data Vital Signs Vital Signs: Vital Signs - 24 hr 08/12/20 10:00 08/12/20 10:01 08/12/20 10:48 Temperature 39.3 C H 39.3 C H Pulse Rate 132 H 133 H 133 H Respiratory Rate 30 H Blood Pressure 130/92 H Pulse Oximetry 96 97 97 08/12/20 11:15 08/12/20 12:00 08/12/20 13:02 Temperature 38.8 C H Pulse Rate 128 H 128 H 126 H Respiratory Rate 30 H 30 H 30 H Blood Pressure 124/76 125/79 Pulse Oximetry 97 08/12/20 13:42 08/12/20 13:45 08/12/20 13:46 Temperature Pulse Rate 127 H 127 H 127 H Respiratory Rate 34 H 34 H Blood Pressure Pulse Oximetry 97 08/12/20 13:47 08/12/20 14:00 08/12/20 16:00 Temperature 38.3 C H 38.6 C H Pulse Rate 127 H 125 H 116 H Respiratory Rate 34 H 34 H 34 H Blood Pressure 116/73 113/72 Pulse Oximetry 97 99 08/12/20 16:18 08/12/20 16:40 08/12/20 16:48 Temperature 38.7 C H 38.7 C H Pulse Rate 114 H Respiratory Rate Blood Pressure Pulse Oximetry 98
[2020-08-13 11:39] LABS: Vancomycin Trough 7.5 ug/mL (10.0-20.0)
[2020-08-13 12:57] LABS: Glucose Point of Care 159 (65-105)
--- NOTE | 2020-08-13 13:43 | WPDINTPN ---
Progress Note: A&P Assessment and Plan (1) Acute respiratory failure with hypoxia: Code(s): J96.01 - Acute respiratory failure with hypoxia Status: Acute Assessment and Plan: Acute Respiratory failure secondary to COVID-19 pneumonia, ARDS COVID test was positive on 07/29/2020, Admitted 08/01 High-flow nasal cannula 08/04 BiPAP 08/05 transferred to ICU and intubated 08/06 Continue mechanical ventilation support to prevent hypoxemia/hypercarbia and end organ damage. patient on low tidal volume ventilation, will wean PEEP to 8, tidal volume 315 respiratory rate 30, will wean FiO2 to maintain O2 sats greater than 92% ABG and PCXR reviewed Continue fentanyl and Versed infusion, continue neuromuscular blockade -appreciate pulmonology evaluation and recommendations (2) COVID-19: Code(s): U07.1 - COVID-19 Status: Acute Assessment and Plan: His COVID test was positive on 07/29/2020. Dexamethasone started 08/02 completed course of Remdesivir. Patient received convalescent plasma 08/08/2020 (3) Diabetes mellitus: Code(s): E11.9 - Type 2 diabetes mellitus without complications Status: Acute Assessment and Plan: Patient's glucose was elevated on admission to [facility]. Patient has hx of pre-diabetes. A1c 8.5 so now with DM. continue Levemir and sliding scale will hold metformin at this time (4) Bipolar disorder: Code(s): F31.9 - Bipolar disorder, unspecified Status: Inactive Assessment and Plan: Continue Lamictal and venlafaxine. (5) DVT prophylaxis: Code(s): Z29.9 - Encounter for prophylactic measures, unspecified Status: Acute Assessment and Plan: Lovenox q.12H (6) Electrolyte abnormality: Code(s): E87.8 - Other disorders of electrolyte and fluid balance, not elsewhere classified Status: Acute Assessment and Plan: resolved (7) Hypotension: Code(s): I95.9 - Hypotension, unspecified Status: Acute Assessment and Plan: likely secondary for sedation Levophed OFF since 08/09/2020 Additional Plan Discussed with Sydnie, patient's and updated with patient's condition plan of care. I answered all questions Code Status - Full Code Total Critical Care Time - 32 minutes Due to a high probability of clinically significant, life threatening deterioration, the patient required my highest level of preparedness to intervene emergently and I personally spent this critical care time directly and personally managing the patient. This critical care time included obtaining a history; examining the patient; pulse oximetry; ordering and review of studies; arranging urgent treatment with development of a management plan; evaluation of patient's response to treatment; frequent reassessment; and discussions with other providers. It was exclusive of separately billable procedures and treating other patients and teaching time. Please see Assessment and Plan section and the rest of the note for further information on patient assessment and treatment Subjective Date/time seen: 08/13/20 13:43 Interval history: 50yo male with bipolar, pre-DM and recently diagnosed with COVID here for SOB and found to be hypoxic. 08/13/2020: Patient persistently febrile with a T-max of 101.5, requiring cooling blanket and ice packs along with Tylenol. Patient has had adequate urine output, hemodynamically stable. Tolerating tube feeds. Remains intubated on CMV mode of ventilation, peep of 8, 100% FiO2. Sedated with fentanyl and Versed infusion, also on Nimbex for neuromuscular blockade Review of Systems Review of Systems: ROS unobtainable: Yes unobtainable due to endotracheal tube and unobtainable due to medical condition Exam Narrative: Exam Narrative: Const: General: comfortable and no acute distress HENMT: Other: ETT in place Eyes: Sclera: sclerae normal Pupils: Equal, round and re
--- NOTE | 2020-08-13 16:35 | PC.NURSE ---
Patient's ETT having air leak. Respiratory notified. Dr. Cavanaugh notified and came into room. Patient's ETT exchanged.
[2020-08-13 17:05] LABS: Glucose Point of Care 195 (65-105)
--- NOTE | 2020-08-13 18:25 | PM.EVENT ---
Event Note Event Note Event Note: Called by bedside nurse that patient was desaturating and his ETT cuff was leaking. I evaluated the patient he did have bilateral breath sounds, ETT cuff was leaking. -ETT was switched over a tube exchanger, he also used the glide scope to visualize the passing of the ETT to the vocal cords. -patient did dropped transiently his oxygenation, the new ETT cuff was also leaking. So replaced it with a newer ETT. Once the cuff was up to sats improved. -tidal volume 350 mL, peep of 12, 100% FiO2, rate of 32. -chest x-ray showed ET tube to be above the nancy
--- NOTE | 2020-08-13 18:44 | WPDPROCEDUR ---
Procedures Intubation Intubation Date: 08/13/20 Intubation Time: 16:22 Consent: Patient's ETT was leaking, bedside RN called me. Evaluated the ETT patient had an air leak, ETT was switched over tube exchanger. The new ETT air leak. A 2nd new ETT was inserted over the tube exchanger, ETT balloon was inflated, patient was getting adequate volumes, no air leak was heard. Patient is oxygen saturations improved. Patient was already on fentanyl and Versed infusion for sedation along with Nimbex infusion for neuromuscular blockade.
--- NOTE | 2020-08-13 19:48 | PC.NURSE ---
Spoke with Dr. Cavanaugh regarding O2sat of 88%. prone patient and start flolan
--- NOTE | 2020-08-13 19:57 | WPDINFPN2 ---
Progress Note: A&P Assessment and Plan (1) Staphylococcus aureus bacteremia with sepsis: Code(s): A41.01 - Sepsis due to Methicillin susceptible Staphylococcus aureus Status: Acute Assessment and Plan: Fever due to S aureus bacteremia, likely lung source REC Vanc #1, change to Ancef if found to be oxacillin susceptible, prolonged course anticipated Subjective Date/time seen: 08/13/20 19:57 Objective Data Vital Signs Vital Signs: Vital Signs - 24 hr 08/12/20 20:00 08/12/20 20:05 08/12/20 20:07 Temperature 38.2 C H Pulse Rate 107 H 108 H 109 H Respiratory Rate 34 H 34 H Blood Pressure 110/75 Pulse Oximetry 94 96 08/12/20 20:12 08/12/20 21:56 08/12/20 21:57 Temperature Pulse Rate 108 H 120 H 120 H Respiratory Rate 34 H 34 H 34 H Blood Pressure Pulse Oximetry 08/12/20 21:58 08/12/20 22:00 08/12/20 22:35 Temperature 38.2 C H 38.2 C H Pulse Rate 120 H 122 H 122 H Respiratory Rate 34 H 34 H 34 H Blood Pressure 118/77 112/70 Pulse Oximetry 90 92 08/12/20 23:06 08/12/20 23:34 08/12/20 23:35 Temperature Pulse Rate 123 H 124 H 124 H Respiratory Rate 34 H 34 H Blood Pressure 113/77 Pulse Oximetry 92 08/12/20 23:46 08/12/20 23:49 08/13/20 00:00 Temperature 38.3 C H 38.3 C H Pulse Rate 124 H 124 H Respiratory Rate 34 H 30 H Blood Pressure 118/78 Pulse Oximetry 91 90 08/13/20 00:16 08/13/20 02:00 08/13/20 02:01 Temperature 38.3 C H 37.9 C H Pulse Rate 118 H 118 H Respiratory Rate 34 H 34 H Blood Pressure 107/72 107/72 Pulse Oximetry 93 08/13/20 02:15 08/13/20 02:18 08/13/20 02:19 Temperature Pulse Rate 117 H 116 H 116 H Respiratory Rate 34 H 34 H Blood Pressure Pulse Oximetry 93 08/13/20 02:46 08/13/20 03:14 08/13/20 03:16 Temperature Pulse Rate 118 H 118 H 118 H Respiratory Rate 34 H 34 H 34 H Blood Pressure Pulse Oximetry 92 08/13/20 03:17 08/13/20 03:28 08/13/20 03:29 Temperature Pulse Rate 118 H 118 H 118 H Respiratory Rate 34 H 34 H 34 H Blood Pressure 107/75 107/75 Pulse Oximetry 08/13/20 04:00 08/13/20 04:32 08/13/20 06:00 Temperature 37.8 C H 38.6 C H Pulse Rate 117 H 118 H 123 H Respiratory Rate 34 H Blood Pressure 114/77 Pulse Oximetry 93 93 08/13/20 06:30 08/13/20 06:44 08/13/20 08:00 Temperature 38.6 C H 38.6 C H 38.6 C H Pulse Rate 122 H 117 H Respiratory Rate 34 H 34 H Blood Pressure 123/69 116/65 Pulse Oximetry 90 93 08/13/20 08:20 08/13/20 08:30 08/13/20 10:00 Temperature 38.7 C H Pulse Rate 121 H 123 H 125 H Respiratory Rate 34 H 34 H 34 H Blood Pressure 115/69 Pulse Oximetry 90 90 08/13/20 11:16 08/13/20 12:00 08/13/20 12:01 Temperature 38.9 C H Pulse Rate 127 H 126 H 126 H Respiratory Rate 34 H 34 H Blood Pressure 106/65 Pulse Oximetry 90 88 L 08/13/20 12:15 08/13/20 12:31 08/13/20 13:41 Temperature 38.8 C H 38.7 C H Pulse Rate 123 H Respiratory Rate 34 H Blood Pressure 106/65 Pulse Oximetry 08/13/20 14:00 08/13/20 14:23 08/13/20 15:58 Temperature 37.9 C H Pulse Rate 108 H 105 H 99 Respiratory Rate 34 H 34 H 34 H Blood Pressure 110/74 110/74 Pulse Oximetry 88 L 08/13/20 16:00 08/13/20 16:56 08/13/20 16:59 Temperature 37.3 C Pulse Rate 99 99 100 Respiratory Rate 34 H 34 H 34 H Blood Pressure 109/76 109/76 Pulse Oximetry 87 L 08/13/20 17:45 08/13/20 18:00 08/13/20 18:25 Temperature 37.5 C 37.7 C H Pulse Rate 104 H 110 H Respiratory Rate 34 H Blood Pressure 137/87 Pulse Oximetry 96 95 Intake/Output Intake/Output: Intake & Output 08/10/20 08/11/20 08/12/20 08/13/20 23:59 23:59 23:59 23:59 Intake Total 1050.2 1267 3075 3648 Output Total 2510 1750 1965 2200 [facility] -1459.8 -[facility] 1110 1448 Meds/Results Medications: Active Medications Generic Name Dose Route Start Last Admin Trade Name Freq PRN Reason Stop Dose Admin Acetaminophen 650 mg 08/11/20 05:
--- NOTE | 2020-08-13 20:15 | PM.IMPN ---
Progress Note: A&P Assessment and Plan (1) Acute respiratory failure with hypoxia: Code(s): J96.01 - Acute respiratory failure with hypoxia Status: Acute Assessment and Plan: Patient with known COVID diagnosed 07/29. Patient presents with complaints of shortness of breath and found to be hypoxic requiring supplemental oxygen. BNP 254 on admission. Patient became more hypoxic morning 08/06; BiPAP failed 08/06 and intubated on respirator now in ICU. Echo 08/13 showing EF 65%, grade I DD without obvious vegitation. Curently on PEEP 12. Wean as toelrated. Continue Albuterol, pulmozyme. Plan for proning patient tonight. (2) Sepsis: Code(s): A41.9 - Sepsis, unspecified organism Status: Acute Assessment and Plan: Patient with sepsis with shock; sepsis symptoms present on admission with resp failure, lactic acidosis, hypoxia, fever, and tachycardia. Lactic acid level 3.2 but normalized on recheck but up to 2.7 yesterday. Developed HoTN and did require Levophed but off since 08/09. [place] related to COVID but now with +BCx. BCx 08/01 negative but redrawn on 08/07 positive (2of2) with Staph aureus. Continue Vancomycin and Cefepime. Continue to monitor closely. Repeat BCx tomorrow. (3) Pneumothorax on right: Code(s): J93.9 - Pneumothorax, unspecified Status: Acute Assessment and Plan: Rt PTX on CXR yesterday. Chest Tube placed. Appreciate Gen Surgery input. (4) COVID-19: Code(s): U07.1 - COVID-19 Status: Acute Assessment and Plan: Patient presents with fever, cough and shortness of breath. His COVID test was positive on 07/29/2020. He was hypoxic on presentation. Finished 10 days of dexamethasone and finished Remdesivir. CXR today showing more focal airspace disease in the RLL. Received plasma 08/07 pm but may be too late in course to be beneficial. Continue supportive care. Follow inflammatory markers. (5) Diabetes mellitus: Code(s): E11.9 - Type 2 diabetes mellitus without complications Status: Acute Assessment and Plan: Patient's glucose was elevated on admission to 278. Patient has hx of pre-diabetes. A1c 8.5 so now with DM. The patient's blood glucose was reviewed on 08/13 Glucose has been poorly controlled 2nd to the steroids and that he was poorly controlled prior to admission. Currently off steroids. Continue AccuCheks covering with sliding scale. Hypoglycemia protocol available as needed. Changed to Levemir 15U Q12 (6) Hypertension: Code(s): I10 - Essential (primary) hypertension Status: Inactive Assessment and Plan: Patient has hypertension listed as a medical problem although he denied. He is not on any medications for this. Blood pressure elevated on admission which again could be stress response but suspect he has underlying HTN. Added lisinopril but now on hold. BP reviewed on 08/13 and BP soft but off levophed since 08/09. Continue to monitor. (7) Bipolar disorder: Code(s): F31.9 - Bipolar disorder, unspecified Status: Inactive Assessment and Plan: sedated and receiving med per NG (8) DVT prophylaxis: Code(s): Z29.9 - Encounter for prophylactic measures, unspecified Status: Acute Assessment and Plan: Lovenox q.12 Subjective Date/time seen: 08/13/20 20:15 Interval history: Date of service 08/13 50yo male with bipolar, pre-DM and recently diagnosed with COVID here for SOB and found to be hypoxic. Patient intubated, sedated and paralyzed. He has a cooling blanket on for persistent fevers. He had a air leak requiring ET tube to be replaced. This had replace the 2nd time today because of persistent leak. Patient not tolerating tube feedings well. His peep has been increased to 12. Review of Systems Review of Systems: ROS unobtainable: Yes unobtainable due to endotracheal tube Exam Narrative: Exam
[2020-08-13] MEDS: EPOPROSTENOL SODIUM 0.5 MG VIAL 1 MG INHALATION (20:59)
[2020-08-13] MEDS: METOCLOPRAMIDE HCL INJ 10 MG/2 ML VIAL 5 MG IV PUSH ×2 (21:11→23:53)
--- NOTE | 2020-08-13 22:20 | PC.NURSE ---
Dr. Cavanaugh updated regarding patient condition.
[2020-08-14] VITALS (26 sets, daily range): BP systolic 101–136; BP diastolic 56–83; PULSE 98–131; RESP 34; TEMP 37.1–38.3; O2SAT 87–100
[2020-08-14 00:35] LABS: Glucose Point of Care 280 (65-105)
--- NOTE | 2020-08-14 01:43 | CONS_ITS ---
DATE OF CONSULTATION: 08/13/2020 REASON FOR CONSULTATION: Fever. HISTORY OF PRESENT ILLNESS: The patient is a 50-year-old male, who cannot provide any history. He is intubated and paralyzed. He was originally admitted on August 01 with respiratory distress, shortness of breath, cough, fever. He had been exposed to his to the Coronavirus. His test was positive 2 days prior to admission on July 30. However, he had been symptomatic for some 2 weeks prior to admission. His hospital course here has been complicated by a respiratory failure, pneumothorax due to barotrauma, ET tube dislodgement today, hyperglycemia, multiple electrolyte abnormalities. While here, he has also been febrile. He was started on cefepime several days ago and was started on vancomycin today when the blood culture returned positive. He has also been receiving dexamethasone, remdesivir 5-day course and single transfusion of CCP. He is on no pressors, but he is paralyzed for adequate ventilation via endotracheal tube. ALLERGIES: NONE KNOWN. PRESENT MEDICATIONS: No other immunosuppressants. HABITS: No tobacco. No alcohol. PAST MEDICAL HISTORY: Bipolar, appendectomy, diabetes, and hypertension. REVIEW OF SYSTEMS: 14-point review not obtainable from the patient due to intubated status. Otherwise as per record and reviewed. FAMILY HISTORY: Behavioral disorder and alcoholism. SOCIAL HISTORY: No family at the bedside. He is , 3 children. Works in the [employer] field. PHYSICAL EXAMINATION: GENERAL: This is a middle-aged male, who appears actual age, obese. No distress acutely. VITAL SIGNS: He had normal temperatures initially, but being on the 17th, has been febrile much of the time. In the last 24 hours, T-max 38.9 and these are all core temperatures, blood pressure 137/87, respiratory rate 34, and heart rate 110. SKIN: No rashes. No ulcers. Warm and dry. No erythroderma. NODES: He has no axillary or cervical adenopathy. EENT: Orally intubated. No paranasal sinus erythema, edema, tenderness. NECK: Without mass, thyromegaly, meningismus. LUNGS: Coarse breath sounds, otherwise clear to auscultation and percussion. Breath sounds are fascicular. CHEST: Equal expansion. He has some crepitus on the right. CARDIAC: Distant S1, S2. Tachycardic. No murmurs or gallops. ABDOMEN: Morbidly obese, nontender. Apparent, but he is paralyzed. There are no abnormalities of contour. No masses are palpable. EXTREMITIES: 3+ nonpitting edema at the ankles and into the feet. LABORATORY DATA: Blood cultures from 08/11, / sets Staph aureus to be identified further. Original blood cultures 08/01 final, no growth. Otherwise labs notable for leukocytosis 14.1, hemoglobin 11.6, platelets are 336. He has a mild left shift differential. Blood gases show respiratory acidosis on the noted ventilator settings. CMV of 100%. His BUN is 20/36, creatinine 0.8, glucose high. Hemoglobin A1c 8.5%. Transaminases 4 times normal. CRP is 34, albumin 2.1. Urinalysis not suggestive of infection. RADIOLOGY: Chest x-ray with right-sided chest tube, bilateral lung disease, pleural effusion on the right. ASSESSMENT: 1. Acute Coronavirus viral pneumonia. 2. Staphylococcus aureus bacteremia suspect lung source. Less likely sources would include his central venous catheter, urine, endocarditis, other endovascular infection, ASSISTANT IMPORT MANAGER, bone, joint, or skin. 3. Fever because of #2 and #1, other sources less likely including sinusitis, drug fever, tumor fever, etc. 4. Respiratory failure. 5. Pneumothorax due to barotrauma. 6. Multifactorial leukocytosis because of all the above. 7. Diabetes mellitus, not optimally controlled. RECOMMENDATIONS: 1. Vancomycin as outlined. 2. If
[2020-08-14 03:01] LABS: Alveolar/Arterial O2 Gradient 558.1 mmHg; Base Excess ABG 0.1 mEq/l (+/-2.0); Fractional Inspired Oxygen 100 %; HCO3 ABG 29.6 mEq/l (22.0-26.0); Methemoglobin ABG 0.3 %THb (0-1.5); Oxygen Content ABG 18.4 %vol (16.0-22.0); Oxygen Saturation ABG 93.8 % (95.0-100.0); Oxyhemoglobin 93.9 % THb (90.0-100.0); PO2 ABG 82.7 mmHg (80.0-100.0); PO2 FiO2 Ratio Arterial Blood 0.83 %; Reduced Hemoglobin 4.8 %THb (0-5.0); Total Hemoglobin 13.9 g/dL (12.0-18.0)
[2020-08-14 03:03] LABS: Device VENTILATOR; Modified Allen's Test Unable to perform; PCO2 ABG 72.2 mmHg (35.0-45.0); Site Drawn LEFT RADIAL; pH ABG 7.231 (7.350-7.450)
[2020-08-14 03:04] LABS: Arterial Blood Gas PEEP 14 cmH2O; Arterial Blood Gas Tidal Volume 350 ml; Arterial Blood Gas Vent Mode CMV; Arterial Blood Gas Ventilator rate 34 /MIN
[2020-08-14 04:34] LABS: Basophils Percent Auto 0.1 % (0.2-1.2); Eosinophils Percent Auto 0.1 % (0-4.4); Hematocrit 42.9 % (42.0-52.0); Hemoglobin 12.7 g/dL (14.0-18.0); Immature Granulocyte Absolute 0.28 K/mm3 (0.00-0.031); Immature Granulocyte Percent A 1.8 % (0-0.5); Lymphocytes Absolute Auto 0.48 K/mm3 (0.9-3.2); Lymphocytes Percent Auto 3.1 % (18.3-44.2); Mean Corpuscular HGB Conc 29.6 g/dl (32-36); Mean Corpuscular Hemoglobin 29.2 pg (26-34); Mean Corpuscular Volume 98.6 fl (80-100); Mean Platelet Volume 10.8 fl (7.4-10.4); Monocytes Absolute Auto 0.7 K/mm3 (0.1-0.6); Monocytes Percent Auto 4.1 % (2.6-8.5); Neutrophils Absolute Auto 14.2 K/mm3 (1.3-6.7); Neutrophils Percent Auto 90.8 % (45.5-73.1); Platelet Count Result 311 k/mm3 (150-375); Red Blood Count 4.35 M/mm3 (4.6-6.20); Red Cell Distribution Width 14.4 % (11.5-14.5); White Blood Count 15.7 K/mm3 (4.5-10.0)
[2020-08-14 04:46] LABS: Lactic Acid Reflex 3.6 mmol/L (0.7-2.1)
[2020-08-14] MEDS: FENTANYL 2,500MCG/NS250ML(*CRX 2,500 MCG/250 ML BAG 20 MCG IV CONT (04:50)
[2020-08-14] MEDS: EPOPROSTENOL SODIUM 0.5 MG VIAL 1 MG INHALATION ×2 (05:01→11:42)
[2020-08-14 05:24] LABS: Alanine Aminotransferase 108 U/L (4-50); Albumin Level 2.2 g/dL (3.5-5.1); Alkaline Phosphatase 261 U/L (38-126); Anion Gap 3 mmol/L (8-16); Aspartate Amino Transferase 92 U/L (17-59); Bilirubin,Total 2.7 mg/dL (0.2-1.3); Blood Urea Nitrogen 35 mg/dL (9-20); Calcium 8.1 mg/dL (8.4-10.2); Carbon Dioxide 33 mmol/L (22-30); Chloride 99 mmol/L (98-107); Estimated CRCL calculation 125 ml/min; Estimated Glomerular Filt Rate > 60; Glucose 247 mg/dL (75-110); Lactate Dehydrogenase 764 U/L (313-618); Magnesium 2.6 mg/dL (1.6-2.3); Phosphorus 3.3 mg/dL (2.5-4.5); Potassium 5.3 mmol/L (3.4-5.0); Sodium 135 mmol/L (137-145)
[2020-08-14] MEDS: CENTRAL LINE FLUSH 10 ML IV PUSH (05:51)
[2020-08-14] MEDS: INSULIN ASPART (*BKC) 100 UNITS/ML SUB-Q ×2 (05:52→13:05)
[2020-08-14] MEDS: METOCLOPRAMIDE HCL INJ 10 MG/2 ML VIAL 5 MG IV PUSH (05:52)
[2020-08-14 07:25] LABS: Reflex Lactic Acid Yes or No Add Lactic
[2020-08-14 08:22] LABS: Ferritin > 2000.00 ng/mL (11.1-264)
[2020-08-14] MEDS: FUROSEMIDE INJ 40 MG/4 ML VIAL IV PUSH (08:29)
[2020-08-14] MEDS: ENOXAPARIN 40 MG/0.4 ML SYRINGE SUB-Q (08:30)
[2020-08-14] MEDS: VENLAFAXINE HCL XR 75 MG CAP.ER.24H 150 MG PO (08:31)
[2020-08-14] MEDS: INSULIN DETEMIR 100 UNITS/ML 18 UNITS SUB-Q (08:31)
[2020-08-14] MEDS: PANTOPRAZOLE SODIUM IV 40 MG VIAL IV PUSH (08:31)
[2020-08-14 08:47] LABS: Lactic Acid 3.1 mmol/L (0.7-2.1)
[2020-08-14 08:48] LABS: Anion Gap 2 mmol/L (8-16); Blood Urea Nitrogen 36 mg/dL (9-20); Calcium 7.8 mg/dL (8.4-10.2); Carbon Dioxide 33 mmol/L (22-30); Chloride 99 mmol/L (98-107); Estimated CRCL calculation 125 ml/min; Estimated Glomerular Filt Rate > 60; Glucose 233 mg/dL (75-110); Potassium 5.2 mmol/L (3.4-5.0); Sodium 134 mmol/L (137-145)
--- NOTE | 2020-08-14 11:22 | PM.IMPN ---
Progress Note: A&P Assessment and Plan (1) Acute respiratory failure with hypoxia: Code(s): J96.01 - Acute respiratory failure with hypoxia Status: Acute Assessment and Plan: Patient with known COVID diagnosed 07/29. Patient presents with complaints of shortness of breath and found to be hypoxic requiring supplemental oxygen. BNP 254 on admission. Patient became more hypoxic morning 08/06; BiPAP failed 08/06 and intubated on respirator now in ICU. Echo 08/13 showing EF 65%, grade I DD without obvious vegetation. Currently on PEEP 14. He was proned last night. Concern for VAP now. Wean vent as tolerated. Continue Albuterol, pulmozyme. Plan for proning patient as he tolerates. (2) Sepsis: Code(s): A41.9 - Sepsis, unspecified organism Status: Acute Assessment and Plan: Patient with sepsis with shock; sepsis symptoms present on admission with resp failure, lactic acidosis, hypoxia, fever, and tachycardia. Lactic acid level 3.2 but normalized on recheck but now up to 3.6 today. Developed HoTN and did require Levophed but off since 08/09. [place] related to COVID but now with +BCx. BCx 08/01 negative but redrawn on 08/07 positive (2of2) with SUNNY - probably VAP. Cefepime stopped. Change Vanco to Ancef. Continue to monitor closely. Repeat BCx pending. (3) Pneumothorax on right: Code(s): J93.9 - Pneumothorax, unspecified Status: Acute Assessment and Plan: Rt PTX on CXR 08/12 and Chest Tube placed. XR reviewed and discussed with drapery worker. Now with air probably under the right diaphragm. Plan to check CT to verify but suspect will need CT replaced. Hopefully diaphragm not damaged. (4) COVID-19: Code(s): U07.1 - COVID-19 Status: Acute Assessment and Plan: Patient presents with fever, cough and shortness of breath. His COVID test was positive on 07/29/2020. He was hypoxic on presentation. Finished 10 days of dexamethasone and finished Remdesivir. Received plasma 08/07. CXR today showing worsening diffuse disease. Ferritin and CRP worse but LDH better. LFTs improved today. Continue supportive care. (5) Diabetes mellitus: Code(s): E11.9 - Type 2 diabetes mellitus without complications Status: Acute Assessment and Plan: Patient's glucose was elevated on admission to 278. Patient has hx of pre-diabetes. A1c 8.5 so now with DM. The patient's blood glucose was reviewed on 08/14 Glucose still poorly controlled. Currently off steroids. Continue AccuCheks covering with sliding scale. Hypoglycemia protocol available as needed. Levemir advanced to 18U Q12h (6) Hypertension: Code(s): I10 - Essential (primary) hypertension Status: Inactive Assessment and Plan: Patient has hypertension listed as a medical problem although he denied. He is not on any medications for this. Blood pressure elevated on admission which again could be stress response but suspect he has underlying HTN. Added lisinopril but now on hold. BP reviewed on 08/14 and BP stable. Patient off levophed since 08/09. Continue to monitor. (7) Bipolar disorder: Code(s): F31.9 - Bipolar disorder, unspecified Status: Inactive Assessment and Plan: Sedated and receiving meds per NG. (8) DVT prophylaxis: Code(s): Z29.9 - Encounter for prophylactic measures, unspecified Status: Acute Assessment and Plan: Lovenox q.12 Subjective Date/time seen: 08/14/20 11:22 Interval history: Date of service 08/14 50yo male with bipolar, pre-DM and recently diagnosed with COVID here for SOB and found to be hypoxic. Patient intubated, sedated and paralyzed. He is having persistent fevers. Review of Systems Review of Systems: ROS unobtainable: Yes unobtainable due to endotracheal tube Exam Narrative: Exam Narrative: Tm 102.1 99.3 101/77 119 34 88% MV Gen - intubated, sedated and par
[2020-08-14 11:23] LABS: Vancomycin Trough 15.3 ug/mL (10.0-20.0)
[2020-08-14] MEDS: ceFAZolin 2 GM/D5W 50 ML 2 GM/50 ML BAG IVPB (12:15)
[2020-08-14 12:24] LABS: Glucose Point of Care 223 (65-105)
--- NOTE | 2020-08-14 12:33 | WPDINTPN ---
Progress Note: A&P Assessment and Plan (1) Staphylococcus aureus bacteremia with sepsis: Code(s): A41.01 - Sepsis due to Methicillin susceptible Staphylococcus aureus Status: Acute Assessment and Plan: MSSA swtiched to Ancef per ID recs (2) Pneumothorax on right: Code(s): J93.9 - Pneumothorax, unspecified Status: Acute Assessment and Plan: second chest tube placed today in RL lung field with mostly resolution of pneumothorax. (3) ARDS (adult respiratory distress syndrome): Code(s): J80 - Acute respiratory distress syndrome Status: Acute Assessment and Plan: Worsening gas exchange with low tidal volume strategy for ARDS and at risk for further barotrauma. I spoke to [facility] as well as Dr. Lee in the ICU and they have accepted him in consideration for ECMO. He will be leaving today as I was told they damon have a bed (4) Acute respiratory failure with hypoxia: Code(s): J96.01 - Acute respiratory failure with hypoxia Status: Acute (5) Sepsis: Code(s): A41.9 - Sepsis, unspecified organism Status: Acute Assessment and Plan: Code Status - Full Code Total Critical Care Time - 35 minutes Due to a high probability of clinically significant, life threatening deterioration, the patient required my highest level of preparedness to intervene emergently and I personally spent this critical care time directly and personally managing the patient. This critical care time included obtaining a history; examining the patient; pulse oximetry; ordering and review of studies; arranging urgent treatment with development of a management plan; evaluation of patient's response to treatment; frequent reassessment; and discussions with other providers. It was exclusive of separately billable procedures and treating other patients and teaching time. Please see Assessment and Plan section and the rest of the note for further information on patient assessment and treatment Subjective Date/time seen: 08/14/20 12:33 Interval history: 50 y/o male with ARDS, COVID-19, two pnuemothoraces from barotrauma, MSSA sepsis and bacteremia. He had worsening gas exchange this morning despite prone positioning for 12 hours last ngiht. CXR today showed a sequestered RLL pneumothorax that resolved after a second chest tube placed by Dr. Rosas. Review of Systems Review of Systems: All systems reviewed & are unremarkable except as noted in HPI and below Exam Narrative: Exam Narrative: Const: General: comfortable and no acute distress HENMT: Other: ETT in place Eyes: Sclera: sclerae normal Pupils: Equal, round and reactive pupils present Neck: Neck: supple Resp: Effort & Inspection: normal respiratory effort Auscultation: rales and diminished lung sounds Other: Right-sided chest tube in place Cardio: Rate: regular rate Rhythm: regular rhythm GI: Inspection: non-distended GI Palp: Yes Soft to palpation and No Tenderness to palpation present (GI) Auscultation: abnormal bowel sounds ( hypoactive bowel sounds) : Other: Jimenez catheter in place Urinary Catheter: Urinary Catheter: patent and draining and urine clear Skin: General skin exam: normal color and no rashes or lesions noted Neuro: Cranial nerves: Yes Equal, round and reactive pupils present Other: patient intubated and sedated, does not open his eyes to name of follows simple commands Extrem: General: normal to inspection, no edema and no pedal edema Psych: Other: unable to assess at this time Objective Data Vital Signs Vital Signs: Vital Signs - 24 hr 08/13/20 13:41 08/13/20 14:00 08/13/20 14:23 Temperature 38.7 C H 37.9 C H Pulse Rate 108 H 105 H Respiratory Rate 34 H 34 H Blood Pressure 110/74 110/74 Pulse Oximetry 88 L 08/13/20 15:58 08/13/20 16:00 08/13/20 16:56 Temperature 37.3 C Pulse Rate 99 99 99 Respiratory Rate 34 H 34 H 34 H Blood Pres
[2020-08-14 13:24] LABS: Alveolar/Arterial O2 Gradient 581.3 mmHg; Base Excess ABG 0.4 mEq/l (+/-2.0); Fractional Inspired Oxygen 100 %; HCO3 ABG 29.7 mEq/l (22.0-26.0); Oxyhemoglobin 88.2 % THb (90.0-100.0); PO2 ABG 60.3 mmHg (80.0-100.0); Total Hemoglobin 13.7 g/dL (12.0-18.0)
[2020-08-14 13:25] LABS: Device VENTILATOR; Modified Allen's Test Pass; Oxygen Saturation ABG 85.7 % (95.0-100.0); PCO2 ABG 71.4 mmHg (35.0-45.0); Site Drawn RIGHT RADIAL; pH ABG 7.237 (7.350-7.450)
[2020-08-14 13:26] LABS: Arterial Blood Gas PEEP 10 cmH2O; Arterial Blood Gas Tidal Volume 350 ml; Arterial Blood Gas Vent Mode CMV; Arterial Blood Gas Ventilator rate 34 /MIN
--- NOTE | 2020-08-15 07:29 | PM.TDS ---
Transfer Discharge Sum: Prov Provider Date of admission: 08/01/20 13:17 Primary care physician: GENERAL INTERNAL MEDICINE DOCTOR PHYSICIAN Admitting clinician: Butch Rodriguez MD Consults: 08/04/20 09:09 Consult to Physician Routine Comment: consulted at 0918(ok,) Consulting Provider: Michelle Davison call centre supervisor/MD group to consult: pulmonary Reason for consultation: COVID, resp failure Has provider been notified: Yes 08/06/20 Consult to Physician Routine Comment: Consulting Provider: Tom Cavanaugh call centre supervisor/MD group to consult: Reason for consultation: respiratory failure with covid pna Has provider been notified: Yes 08/13/20 07:49 Consult to Physician Routine Comment: PAGER USED Consulting Provider: Sekou Velarde call centre supervisor/ group to consult: Infectious disease Reason for consultation: COVID-19, persistent fevers Has provider been notified: Yes 08/14/20 Consult to Physician Routine Comment: Consulting Provider: Cornel Bradshaw call centre supervisor/MD group to consult: [place] Reason for consultation: pneumothorax Has provider been notified: Yes Attending physician on discharge: Deon Rodriguez Discharging clinician: Deon Rodriguez Anticipated date of transfer: 08/14/20 Receiving physician/facility: [place] DS: Admitting Diagnosis Admitting Diagnosis Admitting Diagnosis: right pneumothorax, COVID DS: Discharge Diagnosis Discharge Diagnosis (1) Acute respiratory failure with hypoxia: Code(s): J96.01 - Acute respiratory failure with hypoxia Status: Acute Assessment and Plan: Patient with known COVID diagnosed 07/29. Patient presents with complaints of shortness of breath and found to be hypoxic requiring supplemental oxygen. BNP 254 on admission. Patient became more hypoxic morning 08/06; failed BiPAP 08/06 and intubated on respirator now in ICU. Echo 08/13 showing EF 65%, grade I DD without obvious vegetation. Currently on PEEP 14. He was proned at times as he tolerated. Concern for VAP now. We continued Albuterol, pulmozyme. (2) Sepsis: Code(s): A41.9 - Sepsis, unspecified organism Status: Acute Assessment and Plan: Patient with sepsis with shock; sepsis symptoms present on admission with resp failure, lactic acidosis, hypoxia, fever, and tachycardia. Lactic acid level 3.2 but normalized on recheck but now up to 3.6 on day of transfer. Developed HoTN and did require Levophed but off since 08/09. [place] related to COVID but now with +BCx. BCx 08/01 negative but redrawn on 08/07 positive (2of2) with SUNNY - probably VAP. Cefepime stopped. Changed Vanco to Ancef. Repeat BCx pending. (3) Pneumothorax on right: Code(s): J93.9 - Pneumothorax, unspecified Status: Acute Assessment and Plan: Rt PTX on CXR 08/12 and Chest Tube placed. 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 It appears he has a loculated right PTX. A second chest tube placed. (4) COVID-19: Code(s): U07.1 - COVID-19 Status: Acute Assessment and Plan: Patient presents with fever, cough and shortness of breath. His COVID test was positive on 07/29/2020. He was hypoxic on presentation. Finished 10 days of dexamethasone and finished Remdesivir. Received plasma 08/07. CXR on day of transfer showing worsening diffuse disease. Ferritin and CRP worse but LDH better. LFTs improved. (5) Diabetes mellitus: Code(s): E11.9 - Type 2 diabetes mellitus without complications Status: Acute Assessment and Plan: Patient's glucose was elevated on admission to [facility]. Patient has hx of pre-diabetes but A1c 8.5 so now with DM. The patient's blood glucose was monitored closely. Monitored with [employer] covering with sliding scale. Hypoglycemia protocol available as needed. Levemir was advanced as needed (6) Hypertension: Code(s): I10 - Essential (primary) hypertension Status: Inactive
--- NOTE | 2020-08-16 13:09 | PM.PROC ---
Procedure Note - Detailed Date of procedure: 08/14/20 Pre-op diagnosis: right pneumothorax, COVID Loculated right pneumothorax Post-op diagnosis: same Procedure performed: Placement posterior 2nd right chest tube Description of procedure: The patient had a previous right chest tube placed more anterior and apical yesterday. Today the patient was noted to have an enlarging air pocket in the base of the right pleural space. He became increasingly hard to ventilate with air leak through the 1st chest tube. I was asked to see him emergently for placement of a 2nd chest tube. He was being bagged at the time due to extreme difficulties with ventilation. The right arm was brought up in an abducted position so that the right axillary line was available. Full sterile precautions as well as COVID precautions were used. The right lateral chest was prepped with chlorhexidine. A syringe and 22 gauge needle were entered just over the 9th rib in the axillary line and I was able to pull back air easily consistent with the area of the pneumothorax. Incision was made in this location. I tunneled down to the 9th rib and went just over the 9th rib in the right axillary line. A cordova of air exited as I entered the right chest. I then used a 29 Bengali trocar chest tube and passed the tube into the right lower posterior chest. The trocar was removed and air was noted to be coming from the chest tube consistent with pneumothorax and air leak. The tube was connected to Pleur-Evac suction. The chest tube was sutured to the skin with 2 0 silk. Sterile occlusive dressings were placed. There was still an air leak more at the lateral chest tube now than the anterioapical chest tube. Postprocedure chest x-ray showed minimal residual basal pneumothorax. Anesthesia: none (Patient is sedated on mechanical ventilator in emergent situation) Surgeon: Elie Rosas MD Estimated blood loss (mL): 2 Drains: Yes (Right chest tube) Packing: No Complications: None Condition: critical Disposition: ICU Findings: 2nd chest tube in the lower right chest with decreased in the size of the loculated subpulmonic pneumothorax
== END 2020-08-14 15:19 | disposition short-term general hospital (02) | DRG 870 ==
LOC: ANHED 12:15 → ANH3MEDSUR 12:16 → ANHIMU 08-04 11:27 → ANHICU 08-12 08:11 → ANHIMU 08-18 16:56
PROVIDERS: Family Medicine; Internal Medicine; Internal Medicine Critical Care Medicine; Admitting Provider Internal Medicine; Emergency Provider Emergency Medicine; Visit Provider Internal Medicine
DX: A41.89 Other specified sepsis (principal); U07.1 COVID-19; R65.21 Severe sepsis with septic shock; J96.01 Acute respiratory failure with hypoxia; J95.812 Postprocedural air leak; J93.83 Other pneumothorax; Z68.41 Body mass index [BMI] 40.0-44.9, adult; A49.01 Methicillin susceptible Staphylococcus aureus infection, unspecified site; F31.9 Bipolar disorder, unspecified; I10 Essential (primary) hypertension; E11.9 Type 2 diabetes mellitus without complications; E66.9 Obesity, unspecified
CPT/HCPCS: 36415; 36430; 36600; 71045; 74018; 80048; 80053; 80076; 80202; 81001; 82306; 82375; 82565; 82728; 82805; 83036; 83050; 83605; 83615; 83735; 83880; 84100; 84439; 84443; 84460; 84480; 85025; 85027; 85380; 85610; 85730; 86140; 86900; 86901; 87040; 87070; 87077; 87086; 87103; 87186; 87205; 87804; 93005; 93306; 94002; 94003; 94640; 96361; 96374; 96375; 99285; A9270; C1729; C1751; C9113; G0378; J0131; J0282; J0330; J0610; J0690; J0692; J1100; J1650; J1815; J1940; J2250; J2405; J2704; J2765; J3010; J3370; J3480; J7030; J7040; J7050; J7060; J8540; P9059